=== PATIENT | male | born 1985 | race Caucasian/White ===

== ENCOUNTER 2020-05-11 15:05 | Outpatient (CLI) | payer OTHER, SELFPAY ==
--- NOTE | ~2020-05-11 | XR_ITS ---
EXAMINATION: XR chest 2V 05/11/2020 15:48 INDICATION: Chest pain PROCEDURE: 2 view chest COMPARISON: 03/05/2019 FINDINGS: The lungs are clear. The cardiomediastinal silhouette is within normal limits. There are no pleural effusions. There is no pneumothorax suspected. IMPRESSION: 1: NO ACUTE CARDIOPULMONARY DISEASE. Reviewed, dictated and finalized at location A.
[2020-05-11 15:37] LABS: Basophils Absolute Auto 0.1 K/mm3 (0.0-0.1); Basophils Percent Auto 0.5 % (0.2-1.2); Eosinophils Absolute Auto 0.2 K/mm3 (0-0.3); Eosinophils Percent Auto 1.1 % (0-4.4); Hematocrit 47.5 % (42.0-52.0); Immature Granulocyte Absolute 0.11 K/mm3 (0.00-0.031); Immature Granulocyte Percent A 0.7 % (0-0.5); Lymphocytes Absolute Auto 3.03 K/mm3 (0.9-3.2); Lymphocytes Percent Auto 18.3 % (18.3-44.2); Mean Corpuscular HGB Conc 33.7 g/dl (32-36); Mean Corpuscular Hemoglobin 30.6 pg (26-34); Mean Corpuscular Volume 90.8 fl (80-100); Mean Platelet Volume 10.1 fl (7.4-10.4); Monocytes Absolute Auto 0.9 K/mm3 (0.1-0.6); Monocytes Percent Auto 5.3 % (2.6-8.5); Neutrophils Absolute Auto 12.3 K/mm3 (1.3-6.7); Neutrophils Percent Auto 74.1 % (45.5-73.1); Platelet Count Result 199 k/mm3 (150-375); Red Blood Count 5.23 M/mm3 (4.6-6.20); Red Cell Distribution Width 12.9 % (11.5-14.5); White Blood Count 16.6 K/mm3 (4.5-10.0)
[2020-05-11 15:49] LABS: Alanine Aminotransferase 49 U/L (4-50); Albumin Level 4.2 g/dL (3.5-5.1); Alkaline Phosphatase 67 U/L (38-126); Aspartate Amino Transferase 38 U/L (17-59); Bilirubin,Total 0.5 mg/dL (0.2-1.3); Blood Urea Nitrogen 12 mg/dL (9-20); Calcium 8.5 mg/dL (8.4-10.2); Carbon Dioxide 28 mmol/L (22-30); Chloride 105 mmol/L (98-107); Estimated Glomerular Filt Rate > 60; Glucose 95 mg/dL (75-110); Potassium 4.2 mmol/L (3.4-5.0); Sodium 137 mmol/L (137-145)
== END 2020-05-11 15:06 | disposition home or self-care (01) ==
PROVIDERS: PCP Family Medicine; Visit Provider Family Medicine
DX: R07.9 Chest pain, unspecified (principal); I10 Essential (primary) hypertension
CPT/HCPCS: 36415; 71046; 80053; 85025

== ENCOUNTER 2020-06-08 14:58 | Outpatient (CLI) | payer OTHER, SELFPAY ==
[2020-06-08 15:13] LABS: Basophils Absolute Auto 0.07 K/mm3 (0.00-0.10); Basophils Percent Auto 0.7 % (0.0-1.0); Eosinophils Absolute Auto 0.18 K/mm3 (0.02-0.50); Eosinophils Percent Auto 1.7 % (1.0-6.0); Hematocrit 50.3 % (40.0-54.0); Hemoglobin 17.2 g/dL (14.0-18.0); Immature Granulocyte Absolute 0.07 K/mm3 (0.00-0.00); Immature Granulocyte Percent A 0.7 % (0.0-0.0); Lymphocytes Absolute Auto 2.86 K/mm3 (1.10-4.50); Lymphocytes Percent Auto 27.8 % (18.0-42.0); Mean Corpuscular HGB Conc 34.2 g/dL (32.0-36.0); Mean Corpuscular Hemoglobin 31.3 pg (27.0-31.0); Mean Corpuscular Volume 91.5 fL (78.0-102.0); Monocytes Percent Auto 6.8 % (2.0-11.0); Neutrophils Absolute Auto 6.4 K/mm3 (1.7-7.2); Neutrophils Percent Auto 62.3 % (50.0-70.0); Platelet Count Result 218 K/mm3 (150-420); Red Cell Distribution Width 13.3 % (11.6-14.4); White Blood Count 10.3 K/mm3 (4.8-10.8)
[2020-06-08 16:17] LABS: Erythrocyte Sedimentation Rate 2 mm/hr (0-15)
[2020-06-08 16:24] LABS: Alanine Aminotransferase 68 U/L (16-63); Albumin Level 3.9 g/dL (3.4-5.0); Alkaline Phosphatase 68 U/L (46-116); Anion Gap 14.2 mmol/L (7-16); Aspartate Amino Transferase 29 U/L (15-37); Bilirubin,Total 0.5 mg/dL (0.00-1.00); Blood Urea Nitrogen 14 mg/dL (7-18); Calcium 8.8 mg/dL (8.5-10.1); Carbon Dioxide 25 mmol/L (21-32); Chloride 104 mmol/L (98-108); Estimated Glomerular Filt Rate > 60; Glucose 88 mg/dL (70-99); Osmolality Calculated 287 mOsm/kg (285-295); Potassium 4.2 mmol/L (3.5-5.1); Sodium 139 mmol/L (136-145); Total Protein 7.1 g/dL (6.4-8.2)
[2020-06-12 22:28] LABS: CRP, High Sensitivity 3.8 mg/L (***)
== END 2020-06-08 14:59 | disposition home or self-care (01) ==
LOC: CHSLAB 15:01
PROVIDERS: PCP Family Medicine; Visit Provider Family Medicine
DX: D72.829 Elevated white blood cell count, unspecified (principal); L40.9 Psoriasis, unspecified
CPT/HCPCS: 36415; 80053; 85025; 85652; 86141

== ENCOUNTER 2021-02-03 11:37 | Outpatient (CLI) | payer OTHER, SELFPAY ==
[2021-02-03 12:06] LABS: Basophils Absolute Auto 0.1 K/mm3 (0.0-0.1); Basophils Percent Auto 0.5 % (0.2-1.2); Eosinophils Absolute Auto 0.2 K/mm3 (0-0.3); Eosinophils Percent Auto 1.5 % (0-4.4); Hematocrit 46.7 % (42.0-52.0); Immature Granulocyte Absolute 0.12 K/mm3 (0.00-0.031); Immature Granulocyte Percent A 0.8 % (0-0.5); Lymphocytes Absolute Auto 3.53 K/mm3 (0.9-3.2); Lymphocytes Percent Auto 24.6 % (18.3-44.2); Mean Corpuscular HGB Conc 34.3 g/dl (32-36); Mean Corpuscular Volume 90.5 fl (80-100); Mean Platelet Volume 9.9 fl (7.4-10.4); Monocytes Percent Auto 7.2 % (2.6-8.5); Neutrophils Absolute Auto 9.4 K/mm3 (1.3-6.7); Neutrophils Percent Auto 65.4 % (45.5-73.1); Platelet Count Result 250 k/mm3 (150-375); Red Blood Count 5.16 M/mm3 (4.6-6.20); Red Cell Distribution Width 12.9 % (11.5-14.5); White Blood Count 14.3 K/mm3 (4.5-10.0)
[2021-02-03 12:08] LABS: Add Urine Microscopic? YES; Appearance Urine Cloudy (Clear); Bilirubin Urine Negative (Negative); Blood Urine Negative (Negative); Color Urine Yellow (Yellow); Glucose Urine UA Negative (Negative); Ketones Urine Negative (Negative); Leukocyte Esterase Ur Negative LEU/UL (NEGATIVE); Nitrate Urine Negative (Negative); Protein Urine Negative (Negative); RBC Urine 0-2 /hpf (0-2); Specific Grav Ur 1.021 (1.001-1.035); Squamous Epithelial Cell Urine Rare /hpf (Few); Urobilinogen Urine Negative mg/dL (<2.0); WBC Urine 0-3 /hpf (0-3)
[2021-02-03 12:14] LABS: Hemoglobin A1C 5.2 % (<5.7)
[2021-02-03 12:27] LABS: Alanine Aminotransferase 30 U/L (4-50); Albumin Level 4.1 g/dL (3.5-5.1); Alkaline Phosphatase 87 U/L (38-126); Anion Gap 7 mmol/L (8-16); Aspartate Amino Transferase 26 U/L (17-59); Bilirubin,Total 0.3 mg/dL (0.2-1.3); Blood Urea Nitrogen 19 mg/dL (9-20); Carbon Dioxide 25 mmol/L (22-30); Chloride 107 mmol/L (98-107); Cholesterol 260 mg/dL (0-200); Estimated Glomerular Filt Rate > 60; Glucose 103 mg/dL (75-110); Potassium 4.4 mmol/L (3.4-5.0); Sodium 139 mmol/L (137-145)
[2021-02-03 12:46] LABS: Total Triiodothyronine (T3) 1.05 NG/ML (0.97-1.69)
[2021-02-03 13:03] LABS: Free T4 Free Thyroxine 0.86 ng/mL (0.78-2.19)
[2021-02-03 13:28] LABS: Triglycerides 771 mg/dL (<150)
[2021-02-03 13:55] LABS: LDL Cholesterol Direct 127 mg/dL
== END 2021-02-03 11:38 | disposition home or self-care (01) ==
LOC: ANHLAB 11:44
PROVIDERS: PCP Family Medicine; Visit Provider Family Medicine
DX: E03.9 Hypothyroidism, unspecified (principal); R73.9 Hyperglycemia, unspecified; E78.00 Pure hypercholesterolemia, unspecified; I10 Essential (primary) hypertension; Z00.00 Encounter for general adult medical examination without abnormal findings
CPT/HCPCS: 36415; 80053; 80061; 81001; 83036; 84439; 84443; 84480; 85025

== ENCOUNTER 2022-04-28 15:09 | Outpatient (CLI) | payer OTHER, SELFPAY ==
--- NOTE | ~2022-04-28 | MR_ITS ---
EXAMINATION: MR cervical spine wo con DATE: 04/28/2022 15:52 INDICATION: Neck injury. TECHNIQUE: Magnetic resonance imaging (MRI) of the cervical spine was performed without intravenous c ontrast. Sequences included sagittal T2-weighted FSE, sagittal T2-weighted FS FSE, sagittal T1-weight ed FSE, axial MERGE, and axial T2-weighted FSE. COMPARISON: CT cervical spine 03/05/2019 FINDINGS: Bone alignment is normal. Vertebral body heights and intervertebral disc heights are normal . The central spinal canal is developmentally small from C3 to C6. The spinal cord signal intensity i s normal. The following disc levels are specifically discussed: C2-C3: The disc does not extend beyond the endplate margin. There is no uncovertebral joint osteoarth ritis. There is mild right facet joint osteoarthritis. There is no neural foraminal stenosis. There i s mild central canal stenosis. C3-C4: There is a central extrusion. There is mild bilateral uncovertebral joint osteoarthritis. Ther e is mild bilateral facet joint osteoarthritis. There is moderate bilateral neural foraminal stenosis . There is moderate central canal stenosis with ventral and dorsal indentation of the spinal cord. C4-C5: There is a central protrusion. There is no uncovertebral joint osteoarthritis. There is mild l eft facet joint osteoarthritis. There is mild right and moderate left neural foraminal stenosis. Ther e is moderate central canal stenosis with ventral and dorsal indentation of the spinal cord. C5-C6: The disc is bulging. There is moderate left uncovertebral joint osteoarthritis. There is moder ate left facet joint osteoarthritis. There is moderate left neural foraminal stenosis. There is mild central canal stenosis. C6-C7: There is a central protrusion. There is mild bilateral uncovertebral joint osteoarthritis. The re is moderate left facet joint osteoarthritis. There is mild left neural foraminal stenosis. There i s mild central canal stenosis. C7-T1: The disc does not extend beyond the endplate margin. There is no uncovertebral joint osteoarth ritis. There is mild right and moderate left facet joint osteoarthritis. There is mild left neural fo raminal stenosis. There is no central canal stenosis. IMPRESSION: 1. Moderate cervical spondylosis. Reviewed, dictated and finalized at location B.
== END 2022-04-28 15:10 | disposition home or self-care (01) ==
LOC: ANHIMG 15:10
PROVIDERS: PCP Family Medicine; Visit Provider Family Medicine
DX: M25.512 Pain in left shoulder (principal); R22.1 Localized swelling, mass and lump, neck; M47.812 Spondylosis without myelopathy or radiculopathy, cervical region
CPT/HCPCS: 72141

== ENCOUNTER 2022-05-09 08:41 | Outpatient (CLI) | payer OTHER, SELFPAY ==
--- NOTE | ~2022-05-09 | US_ITS ---
EXAMINATION: US soft tissue upper back DATE: 05/09/2022 09:26 INDICATION: Palpable lump and pain at the left upper back TECHNIQUE: Multiple grayscale and Doppler ultrasound images of the region of concern at the posterior left upper back were obtained. COMPARISON: None FINDINGS: There is a lenticular mass at the region of concern measuring 3.1 x 4.2 x 1.5 cm which is without adán reciable internal vascular flow on color Doppler. The mass is isoechoic and with similar echogenic te xture and internal septated architecture as the surrounding subcutaneous fat. Appearance would be con sistent with lesional be statistically most likely to represent a lipoma. IMPRESSION: 1. Nonspecific 4.2 x 3.1 x 1.5 cm subcutaneous mass at the region of concern at the posterior left up per back with appearance consistent with and statistically most likely to represent a lipoma. Reviewed, dictated and finalized at location A. IMPRESSION: 1. Nonspecific 4.2 x 3.1 x 1.5 cm subcutaneous mass at the region of concern at the posterior left upper back with appearance consistent with and statisticall y most likely to represent a lipoma.
== END 2022-05-09 08:42 | disposition home or self-care (01) ==
PROVIDERS: PCP Family Medicine; Visit Provider Physician Assistant
DX: M25.512 Pain in left shoulder (principal); R22.1 Localized swelling, mass and lump, neck
CPT/HCPCS: 76604

== ENCOUNTER 2022-08-16 00:53 | Day surgery (SDC) | payer OTHER, SELFPAY ==
[2022-08-09 13:05] VITALS: BMI 37.5
--- NOTE | 2022-08-09 13:21 | PC.NURSE ---
Report to the Outpatient Waiting Room, entrance under the green pavilion located off [facility], at time _1000 on date _08/16/22 . OR Time: _1200 . Time changes happen often and if your time is changed the preop area will call you the afternoon before. - You and your visitor will be asked to self-screen and do not enter if you have any COVID symptoms. - Only one visitor and NO children visitors are allowed at this time. - The patient visitor is requested to leave or wait in car when not with patient due to restrictions. - A mask is required within the hospital. Patients may have clear liquids (water, carbonated beverages, clear teas, apple juice) until 3 hours prior to surgery with a maximum of 20 ounces. - No food from midnight until time of surgery - Take the following medications with a SIP of water the morning of surgery: __LEVOTHYROXINE Medications to discontinue per physician N/A Date to take last dose Please no make-up, nail indian, hairspray, perfume, deodorant, or body powder the day of surgery. No jewelry (including any body piercings) or valuables the day of surgery, leave them at home. Please take a shower or bath the night before, or the morning of, surgery with an antibacterial soap. Wear comfortable, loose fitting clothing. - Jewelry must be removed prior to entering the operating room. Rings and piercings that are not removed may be cut off. - The hospital will not accept responsibility for valuables. - Please leave all valuables, including medications, at home the day of surgery. If you are going home after surgery, a licensed medical delivery driver must drive you home. - NO public transportation without another adult. - We recommend that an adult stay with you for 24 hours following discharge. - We also recommend that you do not drive, make important decision, drink alcoholic beverages, or take any drugs that were not prescribed by your health care provider for at least 24 hours after your discharge time. Follow any additional instructions given to you from your surgeon. If you or anyone in your household have experienced Covid symptoms in the past week, please notify your surgeon or the nurse liaison at the phone number below for possible testing. Telephone instructions given to _MARCELO and asked if any additional questions and then verbalized understanding. Patient advised to call surgeon office or pre surgery nurse liaison [phone] if any additional questions.
--- NOTE | 2022-08-15 14:19 | WPDANESEPPF ---
Anes - Initial Pre Proc Eval Procedure: Operation Date: 08/16/22 09:00 Proposed Procedures p Excision Left Upper Back Mass - Franko Watson DO Date/Time: 08/15/22 14:19 Surgeon: Franko Watson DO Pre Op Diagnosis: 4cm back mass Patient Data Age: 37 Gender: M Height: 1.73 m Weight: 112 kg Allergies Allergy/AdvReac Type Severity Reaction Status Date / Time Penicillins Allergy Mild Rash Verified 08/16/22 08:10 Home Medications Medication Instructions Recorded Confirmed Type levothyroxine 75 mcg tablet 75 mcg PO DAILY #38 tabs 04/28/22 08/16/22 Rx Patient hx anesthesia problems: none Family hx anesthesia problems: none Results Review: All pre-operative results and documents have been reviewed as part of the pre-operative evaluation. [facility] Past Medical History Medical History (Updated 08/15/22 @ 14:21 by Fernando Hdz MD) BMI 35.0-35.9,adult Chest pain Compensated hypothyroidism Hyperlipidemia Obesity MO (obstructive sleep apnea) Stress at work Tobacco abuse Surgical History Surgical History (Updated 07/31/22 @ 14:33 by Kate Moore) S/P appendectomy Family History Family History Mother Asthma Patient's mother is in good health Father Patient's father is in good health Family history of arthritis Sibling Patient's brother is in good health Social History Social History Social History: Smoking packs per day: 1 Smoking cigarettes per day: 20.0 Years smoked: 20 Smoking pack-years: 20.00 Smoking status: Smoker, status unknown (Pt does vape. ) Tobacco type: cigarettes and e-cigarettes/vaping Second hand tobacco smoke exposure: Yes Smoking end date: 02/03/21 Additional smoking assessment comments: Pt is vaping now. Alcohol intake: current Alcohol use details: Occasionally Substance use: never Substance use type: does not use Living arrangements: with family Gender identity (if verbalized by the patient): Male Sexual Orientation (if Verbalized by the Patient): Straight or Heterosexual Spiritual care concerns: No Anes - Eval Final PreProcedure Day of Procedure 08/15/22 14:19 Patient weight: obese Heart: regular rate and rhythm Lungs: clear to auscultation and normal air movement Airway: Mallampati scale class II Neurological: alert and oriented Last oral intake: >/= 8 hours ASA classification: II Emergent: no Anesthetic plan: proceed Anesthesia type and monitoring: general GIVS Results Review: All pre-operative results and documents have been reviewed as part of the pre-operative evaluation. Informed Consent: The patient's anesthetic plan and its attendant risks and benefits were discussed with the patient/family/POA. Questions were solicited and answers provided to the satisfaction of the patient/family/POA.
[2022-08-16] VITALS (7 sets, daily range): BP systolic 99–117; BP diastolic 51–73; PULSE 52–71; RESP 14–16; TEMP 36.4; O2SAT 93–99
[2022-08-16] MEDS: LACTATED RINGERS 1,000 ML 30 ML IV CONT ×2 (07:30→10:41)
--- NOTE | 2022-08-16 07:33 | WPDHPUPDATE1 ---
History and Physical Update Update Date/Time: 08/16/22 07:33 History and Physical has been reviewed, including an updated exam of the patient. There are NO changes in the patient's condition. Risks, benefits, and alternatives have been discussed and questions answered. Patient agrees to proceed with procedure.
[2022-08-16] MEDS: ceFAZolin 2 GM/D5W 50 ML 2 GM/50 ML BAG IVPB (08:58)
[2022-08-16] MEDS: LIDO 1%/EPINEPHRINE 1:100,000 10 ML VIAL 30 ML INFILTRATE (09:26)
[2022-08-16] MEDS: BACITRACIN ZINC OINTMENT 0.9 GRAM PACKET 1 PACKET TOPICAL (09:38)
--- NOTE | 2022-08-16 09:54 | W.PM.PROC2 ---
Procedure Note - Detailed Date of Procedure 08/16/22 Pre-op Diagnosis 4cm back mass Post-op Diagnosis Same Procedure Performed Excision of 4 cm left upper back mass Surgeon Franko Watson, DO Anesthesia MAC and Local (1% lidocaine with epinephrine) Indications This is a 37-year-old man who presented with a painful back mass on his left upper back. This had grown slightly over time and was causing discomfort when it was pressed on. He had an ultrasound which showed evidence of a subcutaneous mass consistent with a lipoma. Discussions were made with the patient about treatment options and decision was made to proceed with excision of 4 cm back mass. Findings The 4 cm back mass was excised. This appeared to be a subcutaneous lipoma. The mass was completely excised and sent to the lab for pathology. No other abnormalities were noted. Description of Procedure Procedure as well as risks, benefits, and alternatives were discussed with the patient. Written consent was obtained and placed in chart prior to procedure. Patient was brought back to surgical suite. He was placed in right lateral decubitus position on the operating table. Time-out was done to confirm patient and procedure. IV sedation was administered by the anesthesia department. His left upper back area was prepped and draped in sterile fashion using chlorhexidine prep. 1% lidocaine with epinephrine was infiltrated locally around the mass. A 4 cm transverse incision was then made using a 15 blade scalpel. Electrocautery was then used for hemostasis and for dissection through the subcutaneous tissue. The mass was identified and carefully dissected free using electrocautery. The mass was completely excised and sent to the lab for pathology. The wound bed was then inspected. Hemostasis appeared adequate and no other masses were identified. The skin edges were then reapproximated using 3-0 nylon simple interrupted sutures. Bacitracin ointment was then applied followed by 4 x 4 gauze and Medipore tape. The patient was then awakened from anesthesia and transferred to recovery. Estimated Blood Loss 5 Pathology Yes (4 cm left upper back mass) Complications No immediate complications Condition Stable Disposition Same day [facility] Billing Surgery - Charge Forward: Surgery Billing
[2022-08-16] MEDS: oxyCODONE HCL (*CRX) 5 MG TAB IR PO (12:02)
== END 2022-08-16 12:15 | disposition home or self-care (01) ==
PROVIDERS: PCP Family Medicine; Visit Provider Surgery
PROC: (CPT 21931; principal; 2022-08-16 09:00)
DX: D17.1 Benign lipomatous neoplasm of skin and subcutaneous tissue of trunk (principal); E03.8 Other specified hypothyroidism; Z87.891 Personal history of nicotine dependence; G47.33 Obstructive sleep apnea (adult) (pediatric); E66.9 Obesity, unspecified; Z68.36 Body mass index [BMI] 36.0-36.9, adult; E78.5 Hyperlipidemia, unspecified
CPT/HCPCS: 21931; 88304; A9270; J0690; J1100; J1170; J2250; J2370; J2405; J2704; J7120

== ENCOUNTER 2023-09-30 19:46 | Emergency (ER) | payer SELFPAY ==
--- NOTE | ~2023-09-30 | XR_ITS ---
EXAMINATION: XR chest 2V Exam Date/Time: 09/30/2023 20:10 MAGISTRATE HISTORY: rib pain X 7 YEARS Comparison: 05/11/2020. RESULT: Lines, tubes, and devices: None. Lungs and pleura: Clear. Cardiomediastinal silhouette: Stable. Other: No acute osseous or upper abdominal finding. IMPRESSION: No acute cardiopulmonary process. Reviewed, dictated and finalized at location K. STRATE
[2023-09-30 19:59] VITALS: BP 131/86; PULSE 95; RESP 17; TEMP 36.7; O2SAT 97
--- NOTE | 2023-09-30 21:22 | ED.GENADULT ---
[facility] - General Adult General Chief complaint: Unspecified Stated complaint: B ribcage pain Time Seen by Provider: 09/30/23 20:37 History of Present Illness [facility] narrative: patient presents the emergency department with left-sided chest wall pain that has been ongoing for the past 7 years. He reports it has been worse the past couple days. He also has a chronic cough. His friend notes the patient has continued to smoke and the for years. Pain much worse with deep breath and movement. patient is sleeping upon my initial exam and difficult to arouse. Appears very uncomfortable with any movement. Describes discomfort as sharp but also something is deflating Related Data Allergies Allergy/AdvReac Type Severity Reaction Status Date / Time Penicillins Allergy Mild Rash Verified 06/22/23 13:13 Review of Systems Review of Systems: negative except what is documented in the [facility] Past Medical History Medical History BMI 35.0-35.9,adult Chest pain Compensated hypothyroidism Hyperlipidemia Obesity MO (obstructive sleep apnea) Stress at work Tobacco abuse Surgical History Surgical History H/O excision of mass Excision of 4cm back mass on 08/16/22 S/P appendectomy Family History Family History Mother Asthma Patient's mother is in good health Father Patient's father is in good health Family history of arthritis Sibling Patient's brother is in good health Social History Social History (Updated 06/22/23 @ 13:15 by Patricia Xiong) Social History: Smoking packs per day: 1 Smoking cigarettes per day: 20.0 Years smoked: 20 Smoking pack-years: 20.00 Smoking status: Current some day smoker (Pt does vape. ) Tobacco type: cigarettes and e-cigarettes/vaping Second hand tobacco smoke exposure: Yes Smoking end date: 02/03/21 Additional smoking assessment comments: Pt is vaping now. Alcohol intake: current Alcohol use details: Occasionally Substance use: never Substance use type: does not use Lack of Transportation: No Lack of Food: Never True Current Housing: I Have Housing Concerned About Future Housing: No Difficulty Paying Gas/Electric Bills: No Difficulty Paying for Meds: No Currently Unemployed: No Education: Decline to Answer Difficulty w/ Childcare or Family Care: No Living arrangements: with family Occupation/Education: occupation Gender identity (if verbalized by the patient): Male Sexual Orientation (if Verbalized by the Patient): Straight or Heterosexual Spiritual care concerns: No Exam Narrative: GENERAL: Well-appearing, well-nourished, and in no acute distress after waking up HEAD: Normocephalic, atraumatic. EYES: PERRLA and EOMI. ENT: Nares clear, no rhinorrhea or epistaxis. Mucous membranes moist. NECK: Supple. CHEST: Clear to auscultation. No respiratory distress. left lateral chest wall tenderness HEART: Regular rate and rhythm. ABDOMEN: Soft, nontender, nondistended. EXTREMITIES: Normal range of motion. No edema. SKIN: Warm, dry, no rash. NEURO: No focal deficits. Alert and oriented x3. PSYCH: Normal mood and affect. Course Course Emergency Course: differential diagnosis includes but not limited to chest wall pain, costochondritis, pleurisy, pneumonia, bronchitis, lung mass CT labs ordered Telemetry ordered due to chest pain to evaluate for dysrhythmias. Evaluated by myself. Rhythm NS Rate 95 Vital Signs Vital signs: Vital Signs Temperature 36.7 C 09/30/23 19:59 Pulse Rate 95 09/30/23 19:59 Respiratory Rate 17 09/30/23 19:59 Blood Pressure 131/86 09/30/23 19:59 Pulse Oximetry 97 09/30/23 19:59 Temperature 36.7 C 09/30/23 19:59 Pulse Rate 77 09/30/23 22:21 Respiratory Rate 14 09/30/23 22:21 Blood Pressure
[2023-09-30 21:37] LABS: Basophils Percent Auto 0.3 % (0.2-1.2); Eosinophils Absolute Auto 0.2 K/mm3 (0-0.3); Eosinophils Percent Auto 2.4 % (0-4.4); Hematocrit 47.2 % (42.0-52.0); Hemoglobin 15.6 g/dL (14.0-18.0); Lymphocytes Absolute Auto 3.42 K/mm3 (0.9-3.2); Lymphocytes Percent Auto 35.4 % (18.3-44.2); Mean Corpuscular HGB Conc 33.1 g/dl (32-36); Mean Corpuscular Hemoglobin 29.9 pg (26-34); Mean Corpuscular Volume 90.4 fl (80-100); Mean Platelet Volume 9.8 fl (7.4-10.4); Monocytes Absolute Auto 0.7 K/mm3 (0.1-0.6); Monocytes Percent Auto 7.4 % (2.6-8.5); Neutrophils Absolute Auto 5.2 K/mm3 (1.3-6.7); Neutrophils Percent Auto 53.5 % (45.5-73.1); Platelet Count Result 238 k/mm3 (150-375); Red Blood Count 5.22 M/mm3 (4.6-6.20); Red Cell Distribution Width 13.1 % (11.5-14.5); White Blood Count 9.7 K/mm3 (4.5-10.0)
[2023-09-30 21:46] LABS: Ethanol < 10 mg/dL (<10)
[2023-09-30 21:47] LABS: Alanine Aminotransferase 50 U/L (6-50); Albumin Level 4.2 g/dL (3.5-5.1); Alkaline Phosphatase 85 U/L (38-126); Anion Gap 9 mmol/L (8-16); Aspartate Amino Transferase 35 U/L (17-59); Bilirubin,Total 0.7 mg/dL (0.2-1.3); Blood Urea Nitrogen 19 mg/dL (9-20); Carbon Dioxide 25 mmol/L (22-30); Chloride 103 mmol/L (98-107); Estimated CRCL calculation 173 ml/min; Estimated Glomerular Filt Rate > 60; Glucose 146 mg/dL (65-110); Potassium 4.1 mmol/L (3.4-5.0); Sodium 137 mmol/L (137-145)
[2023-09-30 21:50] LABS: D Dimer 0.35 ug/mL (<0.48)
[2023-09-30 22:00] LABS: Troponin I < 0.012 ng/mL (0.000-0.034)
[2023-09-30 22:21] VITALS: BP 144/91; PULSE 77; RESP 14; O2SAT 95
--- NOTE | 2023-09-30 22:24 | ECG_ITS ---
Measurements Intervals [place] Rate: 95 P: 33 WA: 131 QRS: -48 QRSD: 106 T: 38 QT: 367 QTc: 462 Interpretive Statements SINUS RHYTHM INCOMPLETE RIGHT BUNDLE BRANCH BLOCK LEFT ANTERIOR FASCICULAR BLOCK ABNORMAL ECG COMPARED TO ECG 03/05/2019 08:12:38 LEFT ANTERIOR FASCICULAR BLOCK NOW PRESENT Electronically Signed On 10-01-2023 6:20:34 PILL MACHINE OPERATOR by Bonifacio Stroud D.O.
[2023-09-30 22:38] LABS: Amphetamine Screen Urine Negative (Negative); Barbiturate Screen Urine Negative (Negative); Benzodiazepines Screen Urine Negative (Negative); Cannabinoid Screen Urine Negative (Negative); Cocaine Screen Urine Negative (Negative); Methadone Screen Urine Negative (Negative); Opiate Screen Urine Negative (Negative); Phencyclidine Screen Urine Negative (Negative)
[2023-09-30] MEDS: LIDOCAINE 5% PATCH 1 PATCH TRANSDERM (22:50)
[2023-09-30] MEDS: IBUPROFEN 600 MG TABLET PO (22:50)
== END 2023-09-30 23:00 | disposition home or self-care (01) ==
PROVIDERS: Emergency Provider Emergency Medicine; PCP Family Medicine
DX: R07.89 Other chest pain (principal); E03.9 Hypothyroidism, unspecified; E78.5 Hyperlipidemia, unspecified; G47.33 Obstructive sleep apnea (adult) (pediatric); E66.9 Obesity, unspecified; Z68.37 Body mass index [BMI] 37.0-37.9, adult; F17.290 Nicotine dependence, other tobacco product, uncomplicated; I45.2 Bifascicular block
CPT/HCPCS: 36415; 71046; 80053; 80307; 84484; 85025; 85380; 93005; 99284; A9270

== ENCOUNTER 2024-03-25 19:28 | Inpatient (IN) | payer SELFPAY ==
[2024-03-25] VITALS (10 sets, daily range): BP systolic 106–138; BP diastolic 73–88; PULSE 85–96; RESP 14–20; TEMP 37.2–37.4; O2SAT 93–100
--- NOTE | ~2024-03-25 | CT_ITS ---
EXAMINATION: CT abdomen pelvis w con DATE: 03/25/2024 20:58 INDICATION: Epigastric and ruq pain. TECHNIQUE: Computed tomography (CT) of the abdomen and pelvis was performed with 100 mL Omnipaque-350 intravenous contrast. Automated exposure control and iterative reconstruction technique were employe d. The dose-length product was 1292.65 mGy-cm. COMPARISON: 03/06/2019 and 12/31/2015. FINDINGS: Lower thorax: Bilateral dependent patchy groundglass opacities and septal thickening Liver: Enlarged. Diffuse fatty infiltration. Biliary/Gallbladder: Gallbladder is normal. No bile duct dilation. Pancreas: No mass or duct dilation. Stable peripancreatic lymph node. Spleen: Enlarged Adrenals:Subcentimeter right adrenal myelolipoma. Kidneys: No suspicious mass, obstructing stone, or hydronephrosis. GI tract: No small or large bowel dilation. Appendix not visualized, likely surgically absent Mesentery/Peritoneum: No ascites, mass, or free air. Retroperitoneum: No mass. Pelvis: Pelvic organs are within normal limits. Soft Tissues: Small fat-containing left inguinal and umbilical hernias. Bones: No acute osseous finding. IMPRESSION: Moderate pulmonary edema. Hepatosplenomegaly. Hepatic steatosis. Otherwise, no acute abdominopelvic process detected. Reviewed, dictated and finalized at location K.
--- NOTE | ~2024-03-25 | XR_ITS ---
Portable chest x-ray Comparison: 03/26/2024 Clinical History: Bilateral infiltrates Findings: Right-sided PICC line is in satisfactory position. There is probable minimal patchy hazine ss in the left midlung. Right lung clear. Cardiomediastinal silhouette is stable. Bones and soft tis sues are unremarkable. Impression: Minimal patchy haziness left midlung. Correlate for pneumonia. Right-sided PICC line in place. Reviewed, dictated and finalized at location M. Impression: Minimal patchy haziness left midlung. Correlate for pneumonia. Right-sided PICC line in place.
--- NOTE | ~2024-03-25 | XR_ITS ---
Portable chest x-ray Comparison: 03/25/2024 Clinical History: PICC line placement Findings: Right-sided PICC line is present, tip overlying the SVC. Lungs are clear, without focal co nsolidation or pleural effusion. No pneumothorax. Cardiomediastinal silhouette is stable. Bones and soft tissues are unremarkable. Impression: Right-sided PICC line in place. Clear lungs. Reviewed, dictated and finalized at location M. Impression: Right-sided PICC line in place. Clear lungs.
--- NOTE | ~2024-03-25 | CT_ITS ---
EXAMINATION: CT pelvis wo con DATE: 03/31/2024 10:04 INDICATION: Lump in right buttock. TECHNIQUE: Computed tomography (CT) of the pelvis was performed without intravenous contrast. Automat ed exposure control and iterative reconstruction technique were employed. The dose-length product was 1018.24 mGy-cm. COMPARISON: CT abdomen pelvis 03/25/2024 FINDINGS: There are no dilated loops of bowel. There is a left inguinal hernia containing fat. There is mild right external iliac and right common iliac lymphadenopathy, likely reactive. There is no sunitha e intraperitoneal fluid. There is fat stranding and gas in the subcutaneous fat in the medial right b uttock. There is mild osteoarthritis of the hips. IMPRESSION: 1. Fat stranding and gas in the subcutaneous fat in medial right buttock, consistent with cellulitis. Correlate clinically for necrotizing fasciitis. No significant drainable fluid. Reviewed, dictated and finalized at location A. IMPRESSION: 1. Fat stranding and gas in the subcutaneous fat in medial right buttock, consi stent with cellulitis. Correlate clinically for necrotizing fasciitis. No signi ficant drainable fluid.
--- NOTE | ~2024-03-25 | XR_ITS ---
EXAMINATION: XR chest 1V portable DATE: 03/30/2024 05:54 INDICATION: Pneumonia. Pulmonary edema. TECHNIQUE: A single frontal view of the chest was obtained. COMPARISON: Chest single view 03/27/24, CT abdomen and pelvis 03/25/2024 FINDINGS: There are mild airspace opacities in left mid and lower lung zones. No pleural effusion or pneumothorax. The heart size is normal. A right upper extremity peripherally inserted central venous catheter (PICC) is seen with tip in the superior vena cava. IMPRESSION: 1. Stable mild airspace opacities in left mid and lower lung zones, consistent with atelectasis versu s pneumonia. Reviewed, dictated and finalized at location A. IMPRESSION: 1. Stable mild airspace opacities in left mid and lower lung zones, consistent with atelectasis versus pneumonia.
--- NOTE | ~2024-03-25 | XR_ITS ---
EXAMINATION: XR chest 1V portable Exam Date/Time: 03/25/2024 19:45 CDT HISTORY: chest pain Comparison: 09/30/2023. RESULT: Lines, tubes, and devices: None. Lungs and pleura: Moderate diffuse reticular and patchy groundglass opacities with indistinct vessel s and cuffing. Cardiomediastinal silhouette: Stable. Other: No acute osseous or upper abdominal finding. IMPRESSION: Moderate pulmonary edema. Reviewed, dictated and finalized at location K. IMPRESSION: Moderate pulmonary edema.
--- NOTE | 2024-03-25 19:31 | ECG_ITS ---
SEE SCANNED COPY FOR CONFIRMED REPORT MTDD
--- NOTE | 2024-03-25 19:49 | PC.NURSE ---
ok to not give aspirin 324mg per edp zych.
[2024-03-25] MEDS: FAMOTIDINE 20 MG/2 ML VIAL IV PUSH (20:20)
[2024-03-25] MEDS: ONDANSETRON INJ 4 MG/2 ML VIAL IV PUSH (20:20)
[2024-03-25] MEDS: SODIUM CHLORIDE 0.9% IV 2,000 ML 999 ML IV CONT (20:21)
[2024-03-25] MEDS: HYDROmorphone HCL INJ (*CRX) 1 MG/ML SYR 0.5 MG IV PUSH (20:21)
[2024-03-25 20:26] LABS: Partial Thromboplastin Time 29.7 Seconds (22.3-36.8); Prothrombin Time 13.3 Seconds (11.1-14.7)
[2024-03-25 20:36] LABS: Alanine Aminotransferase 51 U/L (6-50); Albumin Level 3.8 g/dL (3.5-5.1); Alkaline Phosphatase 105 U/L (38-126); Anion Gap 15 mmol/L (4-12); Aspartate Amino Transferase 30 U/L (17-59); Blood Urea Nitrogen 13 mg/dL (9-20); Calcium 8.4 mg/dL (8.4-10.2); Carbon Dioxide 12 mmol/L (22-30); Chloride 104 mmol/L (98-107); Estimated CRCL calculation 177 ml/min; Estimated Glomerular Filt Rate > 60; Glucose 224 mg/dL (65-110); Lipase 68 U/L (23-300); Potassium 3.9 mmol/L (3.4-5.0); Sodium 131 mmol/L (137-145)
[2024-03-25 20:50] LABS: Troponin I < 0.012 ng/mL (0.000-0.034)
[2024-03-25 20:57] LABS: Mean Platelet Volume 11.6 fl (7.4-10.4); Platelet Count Result 262 k/mm3 (150-375)
[2024-03-25 21:42] LABS: Hematocrit 36.5 % (42.0-52.0); Hemoglobin 13.3 g/dL (14.0-18.0); Mean Corpuscular HGB Conc 36.4 g/dl (32-36); Mean Corpuscular Hemoglobin 32.4 pg (26-34); White Blood Count 14.7 K/mm3 (4.5-10.0)
[2024-03-25 21:43] LABS: Red Cell Distribution Width 14.1 % (11.5-14.5)
[2024-03-25 21:47] LABS: Band Neutrophils Percent 2 % (0-6); Eosinophils Absolute Manual 0.14 K/mm3 (0.02-0.50); Eosinophils Percent Manual 1 % (0-4); Lymphocytes Absolute Manual 2.35 K/mm3 (1.1-4.5); Lymphocytes Percent Manual 16 % (18-44); Monocytes Absolute Manual 0.73 K/mm3 (0.1-0.90); Monocytes Percent Manual 5 % (3-9); Neutrophils Absolute Manual 11.46 K/mm3 (1.3-6.7); Neutrophils Percent Manual 76 % (46-73); Platelet Estimate Adequate (Adequate); Schistocytes None Seen; Total Cells Counted 100
--- NOTE | 2024-03-25 22:45 | ECG_ITS ---
SEE SCANNED COPY FOR CONFIRMED REPORT MTDD
[2024-03-25 23:26] LABS: Troponin I < 0.012 ng/mL (0.000-0.034)
[2024-03-26] VITALS (22 sets, daily range): BP systolic 107–136; BP diastolic 60–81; PULSE 85–105; RESP 12–23; TEMP 37.1–37.9; O2SAT 90–100; BMI 40.4
--- NOTE | 2024-03-26 | ECHO_ITS ---
Patient Info Name: Nam Mckoy Age: 39 years : 1985 Gender: Male Ht: 68 in Wt: 265 lbs BSA: 2.46 m2 HR: 102 bpm BP: 107 / 60 mmHg Heart Rhythm: Sinus Rhythm Technical Quality: Fair Exam Date: 03/26/2024 1:46 PM Exam Location: Echo Lab Patient Status: Inpatient Admit Date: 03/26/2024 Staff Ordering Physician: Ruben Alatorre MD Tank Furnace Operator: Lindsey De La Cruz RDCS Attending Provider: Sancho Roberts MD Referring Physician: Celi MCLEAN; Exam Type: CA echo doppler color flow Study Info Indications - hypertrigycerides, hypercholestrolemia R07.9 - Chest pain, unspecified Complete two-dimensional, color flow and Doppler transthoracic echocardiogram is performed with contrast to opacify the left ventricle and to improve the deliniation of the left ventricle endocardial borders. Contrast/Agitated Saline Contrast/Ag. Saline: Definity Amount: 3.00 ml Administered By: Lindsey De La Cruz RDCS Existing IV Access: Yes IV Access Condition: patent with no signs of infiltration Summary 1. Left ventricular chamber dimension is normal. 2. Left ventricular systolic function is normal, estimated at 65-70%. 3. The left ventricular diastolic function is grade III diastolic dysfunction. 4. Right ventricular chamber dimension is mildly enlarged. 5. Right ventricular systolic function is normal. 6. No significant valvular disease. Left Ventricle Left ventricular chamber dimension is normal. Left ventricular systolic function is normal, estimated at 65-70%. There is no increased left ventricular wall thickness. The left ventricular diastolic function is grade III diastolic dysfunction. Right Ventricle Linear artifact in right ventricle suggestive of catheter(s), pacemaker lead(s), or ICD lead(s). Right ventricular chamber dimension is mildly enlarged. Right ventricular systolic function is normal. Left Atria Left atrial chamber dimension is normal. Right Atria Linear artifact in the right atrium suggestive of catheter(s), pacemaker lead(s), or ICD lead(s). Right atrial chamber dimension is normal. Atrial Septum Intact interatrial septum visualized by color flow imaging. Aortic Valve The aortic valve is not well visualized. There is no aortic valve stenosis. There is no aortic valve regurgitation. Pulmonic Valve The pulmonic valve is not well visualized. There is trace pulmonic regurgitation. Mitral Valve There is trace mitral valve regurgitation. Tricuspid Valve There is trace tricuspid valve regurgitation. Pericardium/Pleural The pericardium appears epicardial fat pad. There is no pericardial effusion. Inferior Vena Cava Inferior vena cava is not well visualized. Aorta The aortic root size at the sinus of Valsalva is normal. Report Signatures
[2024-03-26 00:13] LABS: Influenza A QL RT-PCR Negative (Negative); Influenza B QL RT-PCR Negative (Negative); RSV RNA, RT-PCR Negative (Negative); SARS-CoV-2 RNA PCR Negative (Negative)
[2024-03-26 00:15] LABS: Hemoglobin A1C 8.4 % (<5.7)
[2024-03-26 00:30] LABS: Cholesterol > 650 mg/dL (0-200); Triglycerides > 2625 mg/dL (<150)
[2024-03-26 00:32] LABS: LDL Cholesterol Direct 88 mg/dL
--- NOTE | 2024-03-26 00:52 | ED.GENADULT ---
HPI - General Adult General Chief complaint: Chest Pain Stated complaint: chest pain Time Seen by Provider: 03/25/24 19:44 History of Present Illness HPI narrative: This is a 31-year-old male presenting for multiple complaints. Patient has been feeling unwell throughout the day. Symptoms have included right-sided chest pain, epigastric pain, nausea vomiting, weakness. 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 Patient says he has been coughing for quite some time. He denies fever chills sore throat or urinary symptoms. His mother has been checking his glucose at home he has been elevated glucose in the 240s. Is now being treated for diabetes at this time. Related Data Allergies Allergy/AdvReac Type Severity Reaction Status Date / Time Penicillins Allergy Mild Rash Verified 06/22/23 13:13 [facility] Past Medical History Medical History BMI 35.0-35.9,adult Chest pain Compensated hypothyroidism Hyperlipidemia Obesity MO (obstructive sleep apnea) Stress at work Tobacco abuse Surgical History Surgical History H/O excision of mass Excision of 4cm back mass on 08/16/22 S/P appendectomy Family History Family History Mother Asthma Patient's mother is in good health Father Patient's father is in good health Family history of arthritis Sibling Patient's brother is in good health Social History Social History Social History: Smoking packs per day: 1 Smoking cigarettes per day: 20.0 Years smoked: 20 Smoking pack-years: 20.00 Smoking status: Current some day smoker (Pt does vape. ) Tobacco type: cigarettes and e-cigarettes/vaping Second hand tobacco smoke exposure: Yes Smoking end date: 02/03/21 Additional smoking assessment comments: Pt is vaping now. Alcohol intake: current Alcohol use details: Occasionally Substance use: never Substance use type: does not use Lack of Transportation: No Lack of Food: Never True Current Housing: I Have Housing Concerned About Future Housing: No Difficulty Paying Gas/Electric Bills: No Difficulty Paying for Meds: No Currently Unemployed: No Education: Decline to Answer Difficulty w/ Childcare or Family Care: No Living arrangements: with family Occupation/Education: occupation Gender identity (if verbalized by the patient): Male Sexual Orientation (if Verbalized by the Patient): Straight or Heterosexual Spiritual care concerns: No Exam Narrative: APPEARANCE: Patient appears uncomfortable Head: atraumatic. EYES: EOMI, NOSE: Atraumatic NECK: Trachea midline RESPIRATORY: bibasilar crackles, slightly tachypneic CARDIOVASCULAR: RRR, no peripheral edema ABDOMINAL: tenderness in the epigastric area, , no guarding or rebound MUSCULOSKELETAl: No obvious deformities NEURO: Alert. Moving 4/4 extremities SKIN:: Warm, dry. Normal color PSYCHIATRIC: Normal affect Course Vital Signs Vital signs: Vital Signs Temperature 98.9 F 03/25/24 20:11 Pulse Rate 94 03/25/24 20:11 Respiratory Rate 15 03/25/24 20:11 Blood Pressure 106/75 03/25/24 20:11 Pulse Oximetry 96 03/25/24 20:11 Oxygen Delivery Room Air 03/25/24 20:11 Temperature 99.3 F 03/25/24 23:26 Pulse Rate 96 03/25/24 23:14 Respiratory Rate 14 03/25/24 23:14 Blood Pressure 123/88 03/25/24 23:14 Pulse Oximetry 95 03/25/24 23:14 Oxygen Delivery Room Air 03/25/24 22:39 Medical Decision Making MDM Narrative Medical decision making narrative: -Course: 39-year-old male presenting with multiple complaints including chest pain, dario, abdominal pain, n/v. Workup significant for bilateral pulmonary edema/ infiltrates. White
[2024-03-26 01:29] LABS: Appearance Urine Clear (Clear); Bacteria Urine None Seen /hpf; Bilirubin Urine Negative (Negative); Blood Urine Negative (Negative); Color Urine Yellow (Yellow); Glucose Urine UA 2+ mg/dL (Negative); Ketones Urine Negative (Negative); Leukocyte Esterase Ur Negative LEU/UL (Negative); Nitrate Urine Negative (Negative); Non Pathogenic Casts 0-2; Protein Urine 1+ mg/dL (Negative); RBC Urine 0-2 /hpf (0-2); Squamous Epithelial Cell Urine None Seen /hpf (Few); Urobilinogen Urine 0.2 mg/dL (<2.0); WBC Urine 0-5 /hpf (0-3)
[2024-03-26 01:36] LABS: Specific Grav Ur 1.067 (1.001-1.035)
[2024-03-26 01:37] LABS: Add Urine Microscopic? YES
[2024-03-26 01:54] LABS: Troponin I < 0.012 ng/mL (0.000-0.034)
[2024-03-26] MEDS: INSULIN HUMAN REGULAR (*BKC) 100 UNITS in SODIUM CHLORIDE 0.9% IV 99 ML 11.5 UNITS IV CONT ×2 (02:08→10:17)
[2024-03-26 02:13] LABS: Glucose Point of Care 235 mg/dl (65-105)
[2024-03-26] MEDS: AZITHROMYCIN 500 MG/NS 250 ML 500 MG/250 ML BAG 250 MG IVPB (02:13)
[2024-03-26 03:11] LABS: Glucose Point of Care 205 mg/dl (65-105)
[2024-03-26] MEDS: DEXTROSE 5%/0.9% SOD CHL 1,000 ML 100 ML IV CONT ×2 (03:15→13:19)
--- NOTE | 2024-03-26 04:13 | ADMGEN ---
This patient, Nam Mckoy, was admitted to Intensive Care Unit-10. Patient/family oriented to hospital policies and general routines including ID bracelet, bed and alarms, visiting hours, pain management, procedures, bathroom and other care routines, personal items, smoking policy, room service/diet, and visiting hours. Information on how to activate the Rapid Response Team has been discussed. Patient/Family are encouraged to report perceived risks to care and to ask questions if they do not understand what they are told or what they should do.
[2024-03-26 05:18] LABS: Glucose Point of Care 149 mg/dl (65-105)
[2024-03-26 05:18] LABS: Glucose Point of Care 165 mg/dl (65-105)
[2024-03-26 05:32] LABS: Glucose Point of Care 123 mg/dl (65-105)
[2024-03-26 06:01] LABS: MRSA (PCR) NOT DETECTED (NOT DETECTE)
--- NOTE | 2024-03-26 06:12 | PC.NURSE ---
ACC site down. ASCVD risk senior estimator unable to be complete at this time
[2024-03-26 06:35] LABS: Glucose Point of Care 87 mg/dl (65-105)
[2024-03-26 08:03] LABS: Glucose Point of Care 77 mg/dl (65-105)
[2024-03-26 08:03] LABS: Glucose Point of Care 70 mg/dl (65-105)
[2024-03-26 08:41] LABS: Glucose Point of Care 77 mg/dl (65-105)
[2024-03-26 09:31] LABS: Glucose Point of Care 79 mg/dl (65-105)
[2024-03-26] MEDS: SODIUM CHLORIDE 0.9% IV 1,000 ML 999 ML IV CONT ×2 (10:16→11:02)
[2024-03-26 10:19] LABS: Basophils Absolute Auto 0.1 K/mm3 (0.0-0.1); Basophils Percent Auto 0.3 % (0.2-1.2); Eosinophils Percent Auto 0.2 % (0-4.4); Hemoglobin 14.2 g/dL (14.0-18.0); Immature Granulocyte Absolute 0.11 K/mm3 (0.00-0.031); Immature Granulocyte Percent A 0.7 % (0-0.5); Lymphocytes Absolute Auto 1.61 K/mm3 (0.9-3.2); Lymphocytes Percent Auto 9.9 % (18.3-44.2); Mean Corpuscular HGB Conc 36.4 g/dl (32-36); Mean Corpuscular Hemoglobin 33.1 pg (26-34); Mean Corpuscular Volume 90.9 fl (80-100); Mean Platelet Volume 10.6 fl (7.4-10.4); Monocytes Absolute Auto 1.2 K/mm3 (0.1-0.6); Monocytes Percent Auto 7.5 % (2.6-8.5); Neutrophils Absolute Auto 13.3 K/mm3 (1.3-6.7); Neutrophils Percent Auto 81.4 % (45.5-73.1); Platelet Count Result 191 k/mm3 (150-375); Red Blood Count 4.29 M/mm3 (4.6-6.20); Red Cell Distribution Width 13.6 % (11.5-14.5); White Blood Count 16.3 K/mm3 (4.5-10.0)
[2024-03-26 10:35] LABS: Lactic Acid Reflex 0.8 mmol/L (0.7-2.0)
[2024-03-26 10:47] LABS: Alanine Aminotransferase 40 U/L (6-50); Albumin Level 3.5 g/dL (3.5-5.1); Alkaline Phosphatase 78 U/L (38-126); Anion Gap 10 mmol/L (4-12); Aspartate Amino Transferase 33 U/L (17-59); Bilirubin,Total 0.8 mg/dL (0.2-1.3); Blood Urea Nitrogen 8 mg/dL (9-20); Calcium 7.3 mg/dL (8.4-10.2); Carbon Dioxide 16 mmol/L (22-30); Chloride 109 mmol/L (98-107); Estimated CRCL calculation 179 ml/min; Estimated Glomerular Filt Rate > 60; Glucose 64 mg/dL (65-110); Lipase 61 U/L (23-300); Magnesium 1.8 mg/dL (1.6-2.3); Potassium 3.8 mmol/L (3.4-5.0); Sodium 135 mmol/L (137-145)
[2024-03-26 11:05] LABS: Glucose Point of Care 75 mg/dl (65-105)
[2024-03-26 11:19] LABS: Triglycerides > 2625 mg/dL (<150)
--- NOTE | 2024-03-26 11:41 | WPDCNINT ---
Assessment and Plan Assessment and plan (1) Hypertriglyceridemia: Code(s): E78.1 - Pure hyperglyceridemia Status: Acute Assessment and Plan: Patient presented with nonspecific symptoms, chest pain, not feeling well, cough. With his blood was drawn in the ER stated that his lipids were very high so they checked his lipid panel and his high triglycerides were > 2625 his cholesterol was > 650. -patient was started on insulin infusion 11.5 units/hr and was 5% infusion to prevent hypoglycemia -patient was given 2 L IV fluid bolus this more -recheck on his triglycerides remain > 2625. -will place PICC line, start dextrose 20% and increase insulin to 20 units/hour -discussed with Nephrology, continue insulin for now, if patient's triglycerides do not improve in the 1-2 days, may require plasmapheresis -started patient on fenofibrate 03/25:CT scan of the abdomen and pelvis: IMPRESSION: Moderate pulmonary edema. Hepatosplenomegaly. Hepatic steatosis. Otherwise, no acute abdominopelvic process detected (2) Pneumonia: Code(s): J18.9 - Pneumonia, unspecified organism Status: Acute Assessment and Plan: Bilateral infiltrates on chest x-ray with cough, leukocytosis -started on ceftriaxone and azithromycin - (3) Pulmonary edema: Qualifiers: Chronicity: acute Qualified Code(s): J81.0 - Acute pulmonary edema Code(s): J81.1 - Chronic pulmonary edema Status: Acute Assessment and Plan: Will obtain echocardiogram -infiltrates could be pneumonia (4) Hypothyroidism (acquired): Code(s): E03.9 - Hypothyroidism, unspecified Status: Acute Assessment and Plan: Will restart levothyroxine (5) Hyperlipidemia: Code(s): E78.5 - Hyperlipidemia, unspecified Status: Acute Assessment and Plan: Started on atorvastatin (6) MO (obstructive sleep apnea): Code(s): G47.33 - Obstructive sleep apnea (adult) (pediatric) Status: Acute Assessment and Plan: CPAP at night and while sleeping (7) Morbid (severe) obesity due to excess calories: Code(s): E66.01 - Morbid (severe) obesity due to excess calories Status: Acute Assessment and Plan: Patient will be counseled on dietary habits and exercise Plan DVT prophylaxis: Lovenox Stress ulcer prophylaxis: Not indicated Nutrition: Full liquid diet Code Status: Full code Critical Care Time Spent: 48 minutes Discussed with patient's mother and updated her with patient's condition and plan of care. I answered all questions Due to a high probability of clinically significant, life threatening deterioration, the patient required my highest level of preparedness to intervene emergently and I personally spent this critical care time directly and personally managing the patient. This critical care time included obtaining a history; examining the patient; pulse oximetry; ordering and review of studies; arranging urgent treatment with development of a management plan; evaluation of patient's response to treatment; frequent reassessment; and discussions with other providers. It was exclusive of separately billable procedures and treating other patients and teaching time. Please see Assessment and Plan section and the rest of the note for further information on patient assessment and treatment This dictation may have been done utilizing a voice recognition system. Attempts have been made to correct errors. However, there may be uncorrected grammatical, spelling, and recognitions errors present. Towboat Captain Consult Note Consult date: 03/26/24 Reason for consult: Hypertriglyceridemia hypercholesterolemia, chest pain, pulmonary edema HPI: Nam Larsenarsenio is a 39 year old male past medical history of obstructive sleep apnea, learning disability, history of chest pains, hypertriglyceridemia, hypercholesterolemia, hypothyroidism, history of elevated blood sugars, tobacco abuse present
[2024-03-26] MEDS: LEVOTHYROXINE SODIUM 75 MCG TABLET PO (12:27)
[2024-03-26] MEDS: ATORVASTATIN 20 MG TABLET PO (12:27)
[2024-03-26] MEDS: FENOFIBRATE 160 MG TABLET PO (12:27)
[2024-03-26 12:28] LABS: Glucose Point of Care 72 mg/dl (65-105)
[2024-03-26] MEDS: ENOXAPARIN 40 MG/0.4 ML SYRINGE SUB-Q (12:28)
[2024-03-26] MEDS: LIDOCAINE HCL 1% PF INJ 5 ML VIAL INFILTRATE (12:45)
[2024-03-26] MEDS: cefTRIAXone 2 GM/NS 100 ML 2 GM/100 ML BAG IVPB ×2 (13:18→21:41)
[2024-03-26] MEDS: CENTRAL LINE FLUSH 10 ML IV PUSH ×2 (13:43→21:11)
[2024-03-26 13:51] LABS: Glucose Point of Care 170 mg/dl (65-105)
[2024-03-26] MEDS: PERFLUTREN LIPID MICROSPHERES 1.5 ML VIAL DILUTED TO 10 ML TOTAL VOLUME IV PUSH (14:06)
[2024-03-26] MEDS: INSULIN HUMAN REGULAR (*BKC) 100 UNITS in SODIUM CHLORIDE 0.9% IV 99 ML 20 UNITS IV CONT ×2 (14:19→19:28)
--- NOTE | 2024-03-26 14:27 | IVDEFINITY ---
Prior to administration of IV Definity the patient was educated on the risks and benefits of the imaging enhancing agent including potential adverse side effects. The patient verbalized understanding. Allergies were verified. No exclusion criteria were identified and at least one of the following inclusion criteria were met: 1) physician request, 2) patient technically difficult to image (per the [place] [employer]ocardi[employer] guidelines of two or more segments not discernable within the apical view), or 3) questionable left ventricular function. ?
[2024-03-26 14:40] LABS: Glucose Point of Care 149 mg/dl (65-105)
[2024-03-26 15:29] LABS: Glucose Point of Care 95 mg/dl (65-105)
[2024-03-26] MEDS: ACETAMINOPHEN 325 MG TABLET 650 MG PO ×2 (15:43→23:58)
[2024-03-26 16:35] LABS: Glucose Point of Care 74 mg/dl (65-105)
--- NOTE | 2024-03-26 17:02 | PM.IMHP ---
H&P: HPI History of Present Illness Date/Time: 03/26/24 17:02 Chief Complaint: Chest pain Narrative: Pt states he has been having BL chest pains cxr shows pneumonia Pt denies any medical problems apart from sleep apnea and hypothyoidism Pt usually well but feels tired and has a bad cough Feels nauseated and has been passing alot of urine at home Pt cholesterol levels are very high looks like pt has a pneumonia wcc are also high Pt is a smoker CT abdo and pelvis shows - Moderate pulmonary edema. Hepatosplenomegaly. Hepatic steatosis. Review of Systems Review of Systems: Mild Bl chest pains Nausea polyuria tiredness weakness All other systems are negative apart from these above PMFSH Past Medical History Medical History BMI 35.0-35.9,adult Chest pain Compensated hypothyroidism Hyperlipidemia Obesity MO (obstructive sleep apnea) Stress at work Tobacco abuse Surgical History Surgical History H/O excision of mass Excision of 4cm back mass on 08/16/22 S/P appendectomy Family History Family History Mother Patient's mother is in good health Asthma Father Family history of arthritis Glioblastoma Sibling Patient's brother is in good health Social History Social History Social History: Smoking packs per day: 1 Smoking cigarettes per day: 20.0 Years smoked: 22 Smoking pack-years: 22.00 Smoking status: Current every day smoker Tobacco type: cigarettes and e-cigarettes/vaping Second hand tobacco smoke exposure: Yes Smoking end date: 02/03/21 Additional smoking assessment comments: Pt is vaping now. Alcohol intake: never Alcohol use details: Occasionally Substance use: never Substance use type: does not use Do You Feel Safe in your Home?: Yes Lack of Transportation: No Lack of Food: Never True Current Housing: I Have Housing Concerned About Future Housing: No Difficulty Paying Gas/Electric Bills: No Difficulty Paying for Meds: No Currently Unemployed: No Education: High School Diploma/GED Difficulty w/ Childcare or Family Care: No Living arrangements: with family Occupation/Education: occupation Gender identity (if verbalized by the patient): Male Sexual Orientation (if Verbalized by the Patient): Straight or Heterosexual Spiritual care concerns: No Meds Home Medications and Allergies Home Medications Medication Instructions Recorded Confirmed Type levothyroxine 100 mcg tablet 75 mcg PO DAILY 03/26/24 03/26/24 History Allergies Allergy/AdvReac Type Severity Reaction Status Date / Time Penicillins Allergy Mild Rash Verified 03/26/24 08:58 Vital Signs Vital Signs - 24 hr 03/25/24 20:11 03/25/24 20:15 03/25/24 20:16 Temperature 37.2 C Pulse Rate 94 93 91 Respiratory Rate 15 16 Blood Pressure 106/75 110/73 Pulse Oximetry 96 96 Oxygen Delivery Room Air Oxygen Flow Rate 03/25/24 22:39 03/25/24 23:14 03/25/24 23:26 Temperature 37.4 C Pulse Rate 96 Respiratory Rate 14 Blood Pressure 123/88 Pulse Oximetry 100 95 Oxygen Delivery Room Air Oxygen Flow Rate 03/25/24 20:11 03/25/24 20:17 03/25/24 20:30 Temperature Pulse Rate 85 91 90 Respiratory Rate 18 20 17 Blood Pressure Pulse Oximetry 97 96 93 Oxygen Delivery Oxygen Flow Rate 03/25/24 22:45 03/25/24 22:46 03/26/24 00:18 Temperature Pulse Rate 97 Respiratory Rate 18 20 20 Blood Pressure 138/80 123/88 Pulse Oximetry 95 100 91 Oxygen Delivery Oxygen Flow Rate 03/26/24 00:32 03/26/24 00:45 03/26/24 01:08 Temperature Pulse Rate 98 98 95 Respiratory Rate 20 19 20 Blood Pressure Pulse Oximetry 94 Oxygen Delivery Oxygen Flow Rate
[2024-03-26 17:24] LABS: Triglycerides > 2625 mg/dL (<150)
[2024-03-26 17:47] LABS: Glucose Point of Care 144 mg/dl (65-105)
[2024-03-26 18:36] LABS: Glucose Point of Care 113 mg/dl (65-105)
[2024-03-26] MEDS: NICOTINE (*PBKC) 21 MG PATCH 1 PATCH (19:24)
[2024-03-26 20:11] LABS: Glucose Point of Care 78 mg/dl (65-105)
[2024-03-26 21:23] LABS: Hemoglobin A1C 9.4 % (<5.7)
[2024-03-26 21:26] LABS: Glucose Point of Care 81 mg/dl (65-105)
[2024-03-26 22:59] LABS: Glucose Point of Care 67 mg/dl (65-105)
[2024-03-26 23:29] LABS: Triglycerides 2522 mg/dL (<150)
[2024-03-27] VITALS (15 sets, daily range): BP systolic 101–143; BP diastolic 56–96; PULSE 90–119; RESP 14–21; TEMP 36.2–37.6; O2SAT 90–100
[2024-03-27 00:09] LABS: Glucose Point of Care 75 mg/dl (65-105)
[2024-03-27] MEDS: INSULIN HUMAN REGULAR (*BKC) 100 UNITS in SODIUM CHLORIDE 0.9% IV 99 ML 20 UNITS IV CONT ×2 (00:33→05:00)
[2024-03-27 01:11] LABS: Glucose Point of Care 62 mg/dl (65-105)
[2024-03-27] MEDS: DEXTROSE 50% 25 GM/50 ML SYRINGE IV PUSH (01:20)
[2024-03-27 01:35] LABS: Glucose Point of Care 143 mg/dl (65-105)
[2024-03-27] MEDS: AZITHROMYCIN 500 MG/NS 250 ML 500 MG/250 ML BAG 250 MG IVPB (01:52)
[2024-03-27 02:40] LABS: Glucose Point of Care 61 mg/dl (65-105)
[2024-03-27 03:08] LABS: Glucose Point of Care 76 mg/dl (65-105)
[2024-03-27 04:09] LABS: Glucose Point of Care 78 mg/dl (65-105)
[2024-03-27] MEDS: CENTRAL LINE FLUSH 10 ML IV PUSH ×3 (04:09→19:53)
[2024-03-27 04:12] LABS: Basophils Percent Auto 0.4 % (0.2-1.2); Eosinophils Absolute Auto 0.1 K/mm3 (0-0.3); Eosinophils Percent Auto 0.8 % (0-4.4); Hematocrit 36.9 % (42.0-52.0); Hemoglobin 12.6 g/dL (14.0-18.0); Immature Granulocyte Absolute 0.06 K/mm3 (0.00-0.031); Immature Granulocyte Percent A 0.6 % (0-0.5); Lymphocytes Absolute Auto 1.13 K/mm3 (0.9-3.2); Lymphocytes Percent Auto 10.4 % (18.3-44.2); Mean Corpuscular HGB Conc 34.1 g/dl (32-36); Mean Corpuscular Hemoglobin 30.9 pg (26-34); Mean Corpuscular Volume 90.4 fl (80-100); Mean Platelet Volume 11.1 fl (7.4-10.4); Monocytes Absolute Auto 0.8 K/mm3 (0.1-0.6); Neutrophils Absolute Auto 8.8 K/mm3 (1.3-6.7); Neutrophils Percent Auto 80.8 % (45.5-73.1); Platelet Count Result 174 k/mm3 (150-375); Red Blood Count 4.08 M/mm3 (4.6-6.20); Red Cell Distribution Width 13.7 % (11.5-14.5); White Blood Count 10.9 K/mm3 (4.5-10.0)
[2024-03-27 04:21] LABS: Lactic Acid Reflex 1.1 mmol/L (0.7-2.0)
[2024-03-27 04:34] LABS: Alanine Aminotransferase 55 U/L (6-50); Albumin Level 3.3 g/dL (3.5-5.1); Alkaline Phosphatase 75 U/L (38-126); Anion Gap 6 mmol/L (4-12); Aspartate Amino Transferase 49 U/L (17-59); Bilirubin,Total 0.6 mg/dL (0.2-1.3); Blood Urea Nitrogen 3 mg/dL (9-20); Calcium 7.6 mg/dL (8.4-10.2); Carbon Dioxide 20 mmol/L (22-30); Chloride 109 mmol/L (98-107); Estimated CRCL calculation 211 ml/min; Estimated Glomerular Filt Rate > 60; Glucose 83 mg/dL (65-110); Phosphorus 3.3 mg/dL (2.5-4.5); Sodium 135 mmol/L (137-145)
[2024-03-27 04:52] LABS: Triglycerides 2261 mg/dL (<150)
[2024-03-27 05:28] LABS: Glucose Point of Care 77 mg/dl (65-105)
[2024-03-27] MEDS: LEVOTHYROXINE SODIUM 75 MCG TABLET PO (06:14)
[2024-03-27 06:28] LABS: Glucose Point of Care 79 mg/dl (65-105)
[2024-03-27 07:35] LABS: Glucose Point of Care 63 mg/dl (65-105)
[2024-03-27 08:39] LABS: Glucose Point of Care 78 mg/dl (65-105)
[2024-03-27] MEDS: POTASSIUM CHLORIDE 20 MEQ ER TABLET 40 MEQ PO (08:51)
[2024-03-27] MEDS: ENOXAPARIN 40 MG/0.4 ML SYRINGE SUB-Q (08:51)
[2024-03-27] MEDS: NICOTINE (*PBKC) 21 MG PATCH 1 PATCH TRANSDERM (08:51)
[2024-03-27] MEDS: cefTRIAXone 2 GM/NS 100 ML 2 GM/100 ML BAG IVPB ×2 (08:52→20:30)
[2024-03-27] MEDS: FENOFIBRATE 160 MG TABLET PO (08:52)
[2024-03-27] MEDS: ATORVASTATIN 20 MG TABLET PO (08:52)
[2024-03-27] MEDS: POTASSIUM CHLORIDE 20 MEQ ER TABLET PO (08:52)
[2024-03-27] MEDS: ACETAMINOPHEN 325 MG TABLET 650 MG PO ×3 (09:16→21:41)
--- NOTE | 2024-03-27 09:18 | PM.CNCAR ---
Assessment and Plan Assessment and plan (1) Pneumonia: Code(s): J18.9 - Pneumonia, unspecified organism Status: Acute Assessment and Plan: He has been started on abx. Treatment per primary service (2) Diastolic dysfunction: Code(s): I51.89 - Other ill-defined heart diseases Status: Acute Assessment and Plan: Echo showed grade 3 diastolic dysfunction. He did have pulmonary edema on initial CXR, may be related to his pneumonia vs CHF. Follow up CXR was clear. Overall he does not appear to be in decompensated heart failure. Emphasized BP control and weight loss. CHF counseling. (3) Hypertriglyceridemia: Code(s): E78.1 - Pure hyperglyceridemia Status: Acute Assessment and Plan: On insulin drip, statin, and fenofibrate. May require plasmapheresis if triglycerides do not improve. Management per primary team. (4) Morbid obesity due to excess calories: Code(s): E66.01 - Morbid (severe) obesity due to excess calories Status: Acute Assessment and Plan: Weight loss counseling was performed. (5) MO (obstructive sleep apnea): Code(s): G47.33 - Obstructive sleep apnea (adult) (pediatric) Status: Acute Assessment and Plan: He is compliant with CPAP (6) Tobacco abuse: Code(s): Z72.0 - Tobacco use Status: Acute Assessment and Plan: Smoking and vaping cessation counseling performed. Plan No specific additional cardiac recommendations to make at this time. Will follow along on an as needed basis, please call with questions. History of Present Illness History of Present Illness Consult date/time: 03/27/24 09:18 Requesting physician: Ruben Alatorre MD Consult reason: Other (diastolic dysfunction) Reason For Visit: PNA Narrative: Nam Mckoy is a 39 year old male with obstructive sleep apnea, hypertriglyceridemia, hypercholesterolemia who presented to the emergency department with a chief complaint of weakness. Cardiology is being asked to see him because of a finding of diastolic dysfunction on echo. Patient began experiencing weakness a couple of days ago which gradually worsened prompting evaluation at the emergency department. He also reports experiencing a sharp, constant chest pain that began while he was at work earlier this week. He has been found to have significantly elevated triglyceride and cholesterol levels, and he is being treated for pneumonia. He denies any shortness of breath, swelling, orthopnea, paroxysmal nocturnal dyspnea, syncope, pre-syncope. He complains right shoulder pain and states he is unable to lift his arm. Review of Systems Review of Systems: All systems reviewed & are unremarkable except as noted in HPI and below PMFSH Past Medical History Medical History BMI 35.0-35.9,adult Chest pain Compensated hypothyroidism Hyperlipidemia Obesity MO (obstructive sleep apnea) Stress at work Tobacco abuse Surgical History Surgical History H/O excision of mass Excision of 4cm back mass on 08/16/22 S/P appendectomy Family History Family History Mother Patient's mother is in good health Asthma Father Family history of arthritis Glioblastoma Sibling Patient's brother is in good health Social History Social History Social History: Smoking packs per day: 1 Smoking cigarettes per day: 20.0 Years smoked: 22 Smoking pack-years: 22.00 Smoking status: Current every day smoker Tobacco type: cigarettes and e-cigarettes/vaping Second hand tobacco smoke exposure: Yes Smoking end date: 02/03/21 Additional smoking assessment comments: Pt is vaping now. Alcohol intake: never Alcohol use details: Occasionally Substance use: n
[2024-03-27 10:41] LABS: Glucose Point of Care 156 mg/dl (65-105)
[2024-03-27] MEDS: ACETAMINOPHEN 325 MG TABLET PO (11:03)
[2024-03-27] MEDS: INSULIN HUMAN REGULAR (*BKC) 100 UNITS in SODIUM CHLORIDE 0.9% IV 99 ML 19 UNITS IV CONT ×3 (11:10→20:31)
--- NOTE | 2024-03-27 11:14 | WPDINTPN ---
Progress Note: A&P Assessment and Plan (1) Hypertriglyceridemia: Code(s): E78.1 - Pure hyperglyceridemia Status: Acute Assessment and Plan: Patient presented with nonspecific symptoms, chest pain, not feeling well, cough. With his blood was drawn in the ER stated that his lipids were very high so they checked his lipid panel and his high triglycerides were > 2625 his cholesterol was > 650. -patient was started on insulin infusion 11.5 units/hr and was 5% infusion to prevent hypoglycemia -patient was given 2 L IV fluid bolus on 03/26 -recheck on his triglycerides remain > 2625. -PICC line was placed on 03/26, and started on Dextrose 20% and insulin to 20 units/hour -discussed with Nephrology, continue insulin for now, if patient's triglycerides do not improve in the 1-2 days, may require plasmapheresis -continue fenofibrate and atorvastatin Continue insulin infusion and dextrose 20%, will do serial triglycerides 03/25:CT scan of the abdomen and pelvis: IMPRESSION: Moderate pulmonary edema. Hepatosplenomegaly. Hepatic steatosis. Otherwise, no acute abdominopelvic process detected (2) Pneumonia: Code(s): J18.9 - Pneumonia, unspecified organism Status: Acute Assessment and Plan: Bilateral infiltrates on chest x-ray with cough, leukocytosis -continue ceftriaxone and azithromycin -03/26: Preliminary blood cultures are negative -03/26: Urine culture pending Chest x-ray this morning: Minimal patchy haziness left midlung. Correlate for pneumonia. Right-sided PICC line in place. (3) Pulmonary edema: Qualifiers: Chronicity: acute Qualified Code(s): J81.0 - Acute pulmonary edema Code(s): J81.1 - Chronic pulmonary edema Status: Acute Assessment and Plan: Initial chest x-ray on admission showed pulmonary edema 03/26/2024 Echocardiogram Summary ? 1. Left ventricular chamber dimension is normal. ? 2. Left ventricular systolic function is normal, estimated at 65-70%. ? 3. The left ventricular diastolic function is grade III diastolic dysfunction. ? 4. Right ventricular chamber dimension is mildly enlarged. ? 5. Right ventricular systolic function is normal. ? 6. No significant valvular disease. (4) Diastolic dysfunction: Code(s): I51.89 - Other ill-defined heart diseases Status: Acute Assessment and Plan: New onset grade 3 diastolic dysfunction on echocardiogram as above -cardiology has been consulted, await recommendations (5) Hypothyroidism (acquired): Code(s): E03.9 - Hypothyroidism, unspecified Status: Acute Assessment and Plan: Continue levothyroxine -TSH within normal limits (6) Hyperlipidemia: Code(s): E78.5 - Hyperlipidemia, unspecified Status: Acute Assessment and Plan: Cholesterol on admission was > 650, LDL was 88, HDL test was not performed - Continue atorvastatin (7) OM (obstructive sleep apnea): Code(s): G47.33 - Obstructive sleep apnea (adult) (pediatric) Status: Acute Assessment and Plan: CPAP at night and while sleeping (8) Morbid (severe) obesity due to excess calories: Code(s): E66.01 - Morbid (severe) obesity due to excess calories Status: Acute Assessment and Plan: Patient will be counseled on dietary habits and exercise (9) Diabetes: Code(s): E11.9 - Type 2 diabetes mellitus without complications Status: Acute Assessment and Plan: Hemoglobin A1c was 9.4 this admission, likely new onset diabetes Will have dietitian and clinical study manager follow the patient -currently on insulin drip, will require treatment for diabetes once insulin drip is off Plan DVT prophylaxis: Lovenox Stress ulcer prophylaxis: Not indicated Nutrition: Will increase to diabetic and heart healthy diet Code Status: Full code Critical Care Time Spent: 32 minutes Discussed with patient's mother and updated her with patient's condition and cata
[2024-03-27 11:58] LABS: Glucose Point of Care 166 mg/dl (65-105)
[2024-03-27 12:35] LABS: Glucose Point of Care 183 mg/dl (65-105)
[2024-03-27 13:45] LABS: Glucose Point of Care 206 mg/dl (65-105)
[2024-03-27 13:46] LABS: Triglycerides 1785 mg/dL (<150)
[2024-03-27 14:35] LABS: Glucose Point of Care 154 mg/dl (65-105)
[2024-03-27 15:30] LABS: Glucose Point of Care 155 mg/dl (65-105)
[2024-03-27 16:43] LABS: Glucose Point of Care 141 mg/dl (65-105)
[2024-03-27 17:49] LABS: Glucose Point of Care 213 mg/dl (65-105)
[2024-03-27 18:24] LABS: Triglycerides 1521 mg/dL (<150)
[2024-03-27 18:38] LABS: Glucose Point of Care 247 mg/dl (65-105)
[2024-03-27 19:52] LABS: Glucose Point of Care 209 mg/dl (65-105)
[2024-03-27] MEDS: MELATONIN 3 MG TABLET PO (20:30)
[2024-03-27] MEDS: METOPROLOL TARTRATE 12.5 MG TABLET PO (20:31)
[2024-03-27 21:18] LABS: Glucose Point of Care 162 mg/dl (65-105)
[2024-03-27 22:49] LABS: Glucose Point of Care 160 mg/dl (65-105)
[2024-03-28] VITALS (19 sets, daily range): BP systolic 104–137; BP diastolic 59–86; PULSE 80–113; RESP 11–24; TEMP 36.8–38.6; O2SAT 91–100; BMI 40.4
[2024-03-28 00:07] LABS: Glucose Point of Care 133 mg/dl (65-105)
[2024-03-28] MEDS: AZITHROMYCIN 500 MG/NS 250 ML 500 MG/250 ML BAG 250 MG IVPB ×2 (00:09→23:52)
[2024-03-28 01:55] LABS: Glucose Point of Care 116 mg/dl (65-105)
[2024-03-28] MEDS: INSULIN HUMAN REGULAR (*BKC) 100 UNITS in SODIUM CHLORIDE 0.9% IV 99 ML 19 UNITS IV CONT ×4 (02:00→22:12)
[2024-03-28 02:38] LABS: Glucose Point of Care 109 mg/dl (65-105)
[2024-03-28 04:23] LABS: Glucose Point of Care 96 mg/dl (65-105)
[2024-03-28] MEDS: CENTRAL LINE FLUSH 10 ML IV PUSH ×3 (04:46→20:18)
[2024-03-28 04:56] LABS: Triglycerides 1310 mg/dL (<150)
[2024-03-28] MEDS: LEVOTHYROXINE SODIUM 75 MCG TABLET PO (05:57)
[2024-03-28 06:16] LABS: Basophils Percent Auto 0.2 % (0.2-1.2); Eosinophils Absolute Auto 0.1 K/mm3 (0-0.3); Eosinophils Percent Auto 1.1 % (0-4.4); Hemoglobin 12.1 g/dL (14.0-18.0); Immature Granulocyte Absolute 0.13 K/mm3 (0.00-0.031); Immature Granulocyte Percent A 1.1 % (0-0.5); Lymphocytes Absolute Auto 1.21 K/mm3 (0.9-3.2); Lymphocytes Percent Auto 9.9 % (18.3-44.2); Mean Corpuscular HGB Conc 31.8 g/dl (32-36); Mean Corpuscular Hemoglobin 29.8 pg (26-34); Mean Corpuscular Volume 93.6 fl (80-100); Monocytes Percent Auto 8.2 % (2.6-8.5); Neutrophils Absolute Auto 9.7 K/mm3 (1.3-6.7); Neutrophils Percent Auto 79.5 % (45.5-73.1); Platelet Count Result 179 k/mm3 (150-375); Red Blood Count 4.06 M/mm3 (4.6-6.20); Red Cell Distribution Width 13.6 % (11.5-14.5); White Blood Count 12.2 K/mm3 (4.5-10.0)
[2024-03-28 06:26] LABS: Alanine Aminotransferase 66 U/L (6-50); Albumin Level 3.3 g/dL (3.5-5.1); Alkaline Phosphatase 78 U/L (38-126); Anion Gap 3 mmol/L (4-12); Aspartate Amino Transferase 49 U/L (17-59); Bilirubin,Total 0.7 mg/dL (0.2-1.3); Calcium 7.7 mg/dL (8.4-10.2); Carbon Dioxide 24 mmol/L (22-30); Chloride 107 mmol/L (98-107); Estimated CRCL calculation 156 ml/min; Estimated Glomerular Filt Rate > 60; Glucose 84 mg/dL (65-110); Magnesium 1.8 mg/dL (1.6-2.3); Phosphorus 2.7 mg/dL (2.5-4.5); Potassium 3.1 mmol/L (3.4-5.0); Sodium 134 mmol/L (137-145)
[2024-03-28 06:30] LABS: Blood Urea Nitrogen < 2 mg/dL (9-20); Triglycerides 1083 mg/dL (<150)
[2024-03-28 06:32] LABS: Glucose Point of Care 95 mg/dl (65-105)
[2024-03-28] MEDS: NICOTINE (*PBKC) 21 MG PATCH 1 PATCH TRANSDERM (08:09)
[2024-03-28] MEDS: FENOFIBRATE 160 MG TABLET PO (08:10)
[2024-03-28] MEDS: POTASSIUM CHLORIDE 20 MEQ ER TABLET 40 MEQ PO (08:10)
[2024-03-28] MEDS: METOPROLOL TARTRATE 12.5 MG TABLET PO ×2 (08:10→20:17)
[2024-03-28] MEDS: ATORVASTATIN 20 MG TABLET PO (08:11)
[2024-03-28] MEDS: ENOXAPARIN 40 MG/0.4 ML SYRINGE SUB-Q (08:12)
[2024-03-28] MEDS: cefTRIAXone 2 GM/NS 100 ML 2 GM/100 ML BAG IVPB ×2 (08:12→20:17)
[2024-03-28] MEDS: KCL 40 MEQ/WATER 100 ML 100 ML 25 ML IVPB (08:13)
[2024-03-28 08:37] LABS: Glucose Point of Care 94 mg/dl (65-105)
--- NOTE | 2024-03-28 09:08 | WPDINTPN ---
Progress Note: A&P Assessment and Plan (1) Hypertriglyceridemia: Code(s): E78.1 - Pure hyperglyceridemia Status: Acute Assessment and Plan: Patient presented with nonspecific symptoms, chest pain, not feeling well, cough. With his blood was drawn in the ER stated that his lipids were very high so they checked his lipid panel and his high triglycerides were > 2625 his cholesterol was > 650. -patient was started on insulin infusion, adequately fluid-resuscitated the ICU -PICC line was placed on 03/26, and started on Dextrose 20% and increased insulin infusion -discussed with Nephrology, continue insulin for now, if patient's triglycerides do not improve in the 1-2 days, may require plasmapheresis -continue fenofibrate and atorvastatin Continue insulin infusion and dextrose 20%, triglycerides improving, continue to monitor -will stop insulin infusion once triglycerides are <500 03/25:CT scan of the abdomen and pelvis: IMPRESSION: Moderate pulmonary edema. Hepatosplenomegaly. Hepatic steatosis. Otherwise, no acute abdominopelvic process detected (2) Pneumonia: Code(s): J18.9 - Pneumonia, unspecified organism Status: Acute Assessment and Plan: Bilateral infiltrates on chest x-ray with cough, leukocytosis -continue ceftriaxone and azithromycin -03/26: Preliminary blood cultures -no growth to date -03/26: Urine culture - no growth Chest x-ray 03/27: Minimal patchy haziness left midlung. Correlate for pneumonia. Right-sided PICC line in place. (3) Pulmonary edema: Qualifiers: Chronicity: acute Qualified Code(s): J81.0 - Acute pulmonary edema Code(s): J81.1 - Chronic pulmonary edema Status: Acute Assessment and Plan: Initial chest x-ray on admission showed pulmonary edema 03/26/2024 Echocardiogram Summary ? 1. Left ventricular chamber dimension is normal. ? 2. Left ventricular systolic function is normal, estimated at 65-70%. ? 3. The left ventricular diastolic function is grade III diastolic dysfunction. ? 4. Right ventricular chamber dimension is mildly enlarged. ? 5. Right ventricular systolic function is normal. ? 6. No significant valvular disease. (4) Diastolic dysfunction: Code(s): I51.89 - Other ill-defined heart diseases Status: Acute Assessment and Plan: New onset grade 3 diastolic dysfunction on echocardiogram as above -appreciate cardiology evaluation and recommendation (5) Hypothyroidism (acquired): Code(s): E03.9 - Hypothyroidism, unspecified Status: Acute Assessment and Plan: Continue levothyroxine -TSH within normal limits (6) Hyperlipidemia: Code(s): E78.5 - Hyperlipidemia, unspecified Status: Acute Assessment and Plan: Cholesterol on admission was > 650, LDL was 88, HDL test was not performed - Continue atorvastatin (7) MO (obstructive sleep apnea): Code(s): G47.33 - Obstructive sleep apnea (adult) (pediatric) Status: Acute Assessment and Plan: CPAP at night and while sleeping (8) Morbid (severe) obesity due to excess calories: Code(s): E66.01 - Morbid (severe) obesity due to excess calories Status: Acute Assessment and Plan: Patient will be counseled on dietary habits and exercise (9) Diabetes: Code(s): E11.9 - Type 2 diabetes mellitus without complications Status: Acute Assessment and Plan: Hemoglobin A1c was 9.4 this admission, likely new onset diabetes Will have dietitian and early childhood special educator follow the patient -currently on insulin drip, will require treatment for diabetes once insulin drip is off Plan DVT prophylaxis: Lovenox Stress ulcer prophylaxis: Not indicated Nutrition: diabetic and heart healthy diet Code Status: Full code Critical Care Time Spent: 32 minutes Discussed with patient's mother and updated her with patient's condition and plan of care. I answered all questions Due to a high
[2024-03-28 11:35] LABS: Glucose Point of Care 165 mg/dl (65-105)
[2024-03-28 12:03] LABS: Glucose Point of Care 145 mg/dl (65-105)
--- NOTE | 2024-03-28 12:25 | PCFNICU ---
ICU Rounding Note: Pt current nutrition is DBCC. Last recorded weight is 120.8 kg, no weight loss reported. Bowel Motility: +BM reported 03/27 Labs Reviewed:TG 1083, K 3.1,NA 134, Hct 38.0,Hgb 12.1 Meds Noted:Insulin Drip, Rocephin, Lipitor, Lovenox Skin:WNL Additional Notes: Spoke with patient today. Tolerated DBCC/Heart Healthy diet today. Agree with diet orders. Window Cutter/Dietitian will see patient later today when parent is present. I will continue to follow in ICU rounds.
[2024-03-28 12:30] LABS: Triglycerides 986 mg/dL (<150)
[2024-03-28 13:56] LABS: Glucose Point of Care 184 mg/dl (65-105)
--- NOTE | 2024-03-28 14:29 | PM.IMPN ---
Progress Note: A&P Assessment and Plan (1) Hypertriglyceridemia: Code(s): E78.1 - Pure hyperglyceridemia Status: Acute Assessment and Plan: Patient presented with nonspecific symptoms, chest pain, not feeling well, cough. With his blood was drawn in the ER stated that his lipids were very high so they checked his lipid panel and his high triglycerides were > 2625 his cholesterol was > 650. -patient was started on insulin infusion, adequately fluid-resuscitated the ICU -PICC line was placed on 03/26, and started on Dextrose 20% and increased insulin infusion -discussed with Nephrology, continue insulin for now, if patient's triglycerides do not improve in the 1-2 days, may require plasmapheresis -continue fenofibrate and atorvastatin Continue insulin infusion and dextrose 20%, triglycerides improving, continue to monitor -will stop insulin infusion once triglycerides are <500 03/25:CT scan of the abdomen and pelvis: IMPRESSION: Moderate pulmonary edema. Hepatosplenomegaly. Hepatic steatosis. Otherwise, no acute abdominopelvic process detected (2) Pneumonia: Code(s): J18.9 - Pneumonia, unspecified organism Status: Acute Assessment and Plan: Bilateral infiltrates on chest x-ray with cough, leukocytosis -continue ceftriaxone and azithromycin -03/26: Preliminary blood cultures -no growth to date -03/26: Urine culture - no growth Chest x-ray 03/27: Minimal patchy haziness left midlung. Correlate for pneumonia. Right-sided PICC line in place. (3) Pulmonary edema: Qualifiers: Chronicity: acute Qualified Code(s): J81.0 - Acute pulmonary edema Code(s): J81.1 - Chronic pulmonary edema Status: Acute Assessment and Plan: Initial chest x-ray on admission showed pulmonary edema 03/26/2024 Echocardiogram Summary ? 1. Left ventricular chamber dimension is normal. ? 2. Left ventricular systolic function is normal, estimated at 65-70%. ? 3. The left ventricular diastolic function is grade III diastolic dysfunction. ? 4. Right ventricular chamber dimension is mildly enlarged. ? 5. Right ventricular systolic function is normal. ? 6. No significant valvular disease. (4) Diastolic dysfunction: Code(s): I51.89 - Other ill-defined heart diseases Status: Acute Assessment and Plan: New onset grade 3 diastolic dysfunction on echocardiogram as above -appreciate cardiology evaluation and recommendation (5) Hypothyroidism (acquired): Code(s): E03.9 - Hypothyroidism, unspecified Status: Acute Assessment and Plan: Continue levothyroxine -TSH within normal limits (6) Hyperlipidemia: Code(s): E78.5 - Hyperlipidemia, unspecified Status: Acute Assessment and Plan: Cholesterol on admission was > 650, LDL was 88, HDL test was not performed - Continue atorvastatin (7) MO (obstructive sleep apnea): Code(s): G47.33 - Obstructive sleep apnea (adult) (pediatric) Status: Acute Assessment and Plan: CPAP at night and while sleeping (8) Morbid (severe) obesity due to excess calories: Code(s): E66.01 - Morbid (severe) obesity due to excess calories Status: Acute Assessment and Plan: Patient will be counseled on dietary habits and exercise (9) Diabetes: Code(s): E11.9 - Type 2 diabetes mellitus without complications Status: Acute Assessment and Plan: Hemoglobin A1c was 9.4 this admission, likely new onset diabetes Will have dietitian and medical educator follow the patient -currently on insulin drip, will require treatment for diabetes once insulin drip is off Plan DVT prophylaxis: Lovenox Stress ulcer prophylaxis: Not indicated Nutrition: diabetic and heart healthy diet Code Status: Full code Subjective Date/time seen: 03/28/24 14:29 Interval history: No overnight events. Remains on insulin drip. Have some headache. Review of Systems Review of Systems:
[2024-03-28 15:02] LABS: Glucose Point of Care 179 mg/dl (65-105)
[2024-03-28 16:40] LABS: Glucose Point of Care 163 mg/dl (65-105)
[2024-03-28 18:22] LABS: Glucose Point of Care 236 mg/dl (65-105)
[2024-03-28 19:14] LABS: Triglycerides 1011 mg/dL (<150)
[2024-03-28] MEDS: MELATONIN 3 MG TABLET PO (20:17)
[2024-03-28] MEDS: ACETAMINOPHEN 325 MG TABLET 650 MG PO (20:27)
[2024-03-28 20:28] LABS: Glucose Point of Care 206 mg/dl (65-105)
[2024-03-28 22:13] LABS: Glucose Point of Care 182 mg/dl (65-105)
[2024-03-28 23:58] LABS: Glucose Point of Care 146 mg/dl (65-105)
[2024-03-29] VITALS (21 sets, daily range): BP systolic 103–146; BP diastolic 48–98; PULSE 71–105; RESP 11–24; TEMP 36.8–37.7; O2SAT 92–100
[2024-03-29 00:30] LABS: Triglycerides 902 mg/dL (<150)
[2024-03-29 01:44] LABS: Glucose Point of Care 103 mg/dl (65-105)
[2024-03-29] MEDS: INSULIN HUMAN REGULAR (*BKC) 100 UNITS in SODIUM CHLORIDE 0.9% IV 99 ML 19 UNITS IV CONT ×5 (03:01→21:04)
[2024-03-29 03:09] LABS: Glucose Point of Care 88 mg/dl (65-105)
[2024-03-29 04:30] LABS: Glucose Point of Care 84 mg/dl (65-105)
[2024-03-29 05:22] LABS: Basophils Percent Auto 0.3 % (0.2-1.2); Eosinophils Absolute Auto 0.3 K/mm3 (0-0.3); Eosinophils Percent Auto 2.3 % (0-4.4); Hematocrit 37.4 % (42.0-52.0); Immature Granulocyte Percent A 0.9 % (0-0.5); Lymphocytes Absolute Auto 1.12 K/mm3 (0.9-3.2); Lymphocytes Percent Auto 9.7 % (18.3-44.2); Mean Corpuscular HGB Conc 32.1 g/dl (32-36); Mean Corpuscular Hemoglobin 29.7 pg (26-34); Mean Corpuscular Volume 92.6 fl (80-100); Mean Platelet Volume 10.1 fl (7.4-10.4); Monocytes Percent Auto 8.9 % (2.6-8.5); Neutrophils Percent Auto 77.9 % (45.5-73.1); Platelet Count Result 191 k/mm3 (150-375); Red Blood Count 4.04 M/mm3 (4.6-6.20); White Blood Count 11.6 K/mm3 (4.5-10.0)
[2024-03-29] MEDS: CENTRAL LINE FLUSH 10 ML IV PUSH ×3 (05:42→21:06)
[2024-03-29 05:55] LABS: Alanine Aminotransferase 74 U/L (6-50); Albumin Level 3.3 g/dL (3.5-5.1); Alkaline Phosphatase 82 U/L (38-126); Anion Gap 3 mmol/L (4-12); Aspartate Amino Transferase 41 U/L (17-59); Bilirubin,Total 0.4 mg/dL (0.2-1.3); Blood Urea Nitrogen 2 mg/dL (9-20); Calcium 7.9 mg/dL (8.4-10.2); Carbon Dioxide 24 mmol/L (22-30); Chloride 108 mmol/L (98-107); Estimated CRCL calculation 158 ml/min; Estimated Glomerular Filt Rate > 60; Glucose 68 mg/dL (65-110); Lipase 45 U/L (23-300); Phosphorus 3.2 mg/dL (2.5-4.5); Potassium 3.2 mmol/L (3.4-5.0); Sodium 135 mmol/L (137-145)
[2024-03-29 06:02] LABS: Glucose Point of Care 100 mg/dl (65-105)
[2024-03-29 06:58] LABS: Glucose Point of Care 130 mg/dl (65-105)
[2024-03-29 07:23] LABS: Triglycerides 823 mg/dL (<150)
[2024-03-29] MEDS: POTASSIUM CHLORIDE 20 MEQ ER TABLET 40 MEQ PO (08:27)
[2024-03-29] MEDS: NICOTINE (*PBKC) 21 MG PATCH 1 PATCH TRANSDERM (08:27)
[2024-03-29] MEDS: ENOXAPARIN 40 MG/0.4 ML SYRINGE SUB-Q (08:27)
[2024-03-29] MEDS: FENOFIBRATE 160 MG TABLET PO (08:28)
[2024-03-29] MEDS: LEVOTHYROXINE SODIUM 75 MCG TABLET PO (08:28)
[2024-03-29] MEDS: METOPROLOL TARTRATE 12.5 MG TABLET PO ×2 (08:28→19:58)
[2024-03-29] MEDS: KCL 40 MEQ/WATER 100 ML 100 ML 25 ML IVPB (08:28)
[2024-03-29] MEDS: cefTRIAXone 2 GM/NS 100 ML 2 GM/100 ML BAG IVPB ×2 (08:28→19:56)
[2024-03-29] MEDS: ATORVASTATIN 20 MG TABLET PO (08:28)
[2024-03-29 08:44] LABS: Glucose Point of Care 142 mg/dl (65-105)
[2024-03-29 09:41] LABS: Glucose Point of Care 203 mg/dl (65-105)
--- NOTE | 2024-03-29 09:54 | WPDINTPN ---
Progress Note: A&P Assessment and Plan (1) Hypertriglyceridemia: Code(s): E78.1 - Pure hyperglyceridemia Status: Acute Assessment and Plan: Patient presented with nonspecific symptoms, chest pain, not feeling well, cough. With his blood was drawn in the ER stated that his lipids were very high so they checked his lipid panel and his high triglycerides were > 2625 his cholesterol was > 650. -patient was started on insulin infusion, adequately fluid-resuscitated the ICU -PICC line was placed on 03/26, and started on Dextrose 20% and increased insulin infusion -discussed with Nephrology, continue insulin for now, if patient's triglycerides do not improve in the 1-2 days, may require plasmapheresis -continue fenofibrate and increase atorvastatin dose Continue insulin infusion and dextrose 20%, triglycerides improving, continue to monitor -will stop insulin infusion once triglycerides are <500 03/25:CT scan of the abdomen and pelvis: IMPRESSION: Moderate pulmonary edema. Hepatosplenomegaly. Hepatic steatosis. Otherwise, no acute abdominopelvic process detected (2) Pneumonia: Code(s): J18.9 - Pneumonia, unspecified organism Status: Acute Assessment and Plan: Bilateral infiltrates on chest x-ray with cough, leukocytosis -continue ceftriaxone and azithromycin -03/26: Preliminary blood cultures -no growth to date -03/26: Urine culture - no growth Chest x-ray 03/27: Minimal patchy haziness left midlung. Correlate for pneumonia. Right-sided PICC line in place. (3) Pulmonary edema: Qualifiers: Chronicity: acute Qualified Code(s): J81.0 - Acute pulmonary edema Code(s): J81.1 - Chronic pulmonary edema Status: Acute Assessment and Plan: Initial chest x-ray on admission showed pulmonary edema 03/26/2024 Echocardiogram Summary ? 1. Left ventricular chamber dimension is normal. ? 2. Left ventricular systolic function is normal, estimated at 65-70%. ? 3. The left ventricular diastolic function is grade III diastolic dysfunction. ? 4. Right ventricular chamber dimension is mildly enlarged. ? 5. Right ventricular systolic function is normal. ? 6. No significant valvular disease. (4) Diastolic dysfunction: Code(s): I51.89 - Other ill-defined heart diseases Status: Acute Assessment and Plan: New onset grade 3 diastolic dysfunction on echocardiogram as above -appreciate cardiology evaluation and recommendation (5) Hypothyroidism (acquired): Code(s): E03.9 - Hypothyroidism, unspecified Status: Acute Assessment and Plan: Continue levothyroxine -TSH within normal limits (6) Hyperlipidemia: Code(s): E78.5 - Hyperlipidemia, unspecified Status: Acute Assessment and Plan: Cholesterol on admission was > 650, LDL was 88, HDL test was not performed -increase atorvastatin (7) MO (obstructive sleep apnea): Code(s): G47.33 - Obstructive sleep apnea (adult) (pediatric) Status: Acute Assessment and Plan: CPAP at night and while sleeping (8) Morbid (severe) obesity due to excess calories: Code(s): E66.01 - Morbid (severe) obesity due to excess calories Status: Acute Assessment and Plan: Patient will be counseled on dietary habits and exercise (9) Diabetes: Code(s): E11.9 - Type 2 diabetes mellitus without complications Status: Acute Assessment and Plan: Hemoglobin A1c was 9.4 this admission, likely new onset diabetes Appreciate dietitian and elementary educator evaluating the patient -currently on insulin drip, will require treatment for diabetes once insulin drip is off Plan DVT prophylaxis: Lovenox Stress ulcer prophylaxis: Not indicated Nutrition: diabetic and heart healthy diet Code Status: Full code Critical Care Time Spent: 32 minutes Discussed with patient's mother and updated her with patient's condition and plan of care. I answered all question
[2024-03-29 11:06] LABS: Glucose Point of Care 165 mg/dl (65-105)
[2024-03-29 11:57] LABS: Glucose Point of Care 146 mg/dl (65-105)
[2024-03-29 12:38] LABS: Triglycerides 696 mg/dL (<150)
[2024-03-29 13:20] LABS: Glucose Point of Care 132 mg/dl (65-105)
[2024-03-29 14:30] LABS: Glucose Point of Care 113 mg/dl (65-105)
--- NOTE | 2024-03-29 14:31 | PM.IMPN ---
Progress Note: A&P Assessment and Plan (1) Hypertriglyceridemia: Code(s): E78.1 - Pure hyperglyceridemia Status: Acute Assessment and Plan: Patient presented with nonspecific symptoms, chest pain, not feeling well, cough. With his blood was drawn in the ER stated that his lipids were very high so they checked his lipid panel and his high triglycerides were > 2625 his cholesterol was > 650. -patient was started on insulin infusion, adequately fluid-resuscitated the ICU -PICC line was placed on 03/26, and started on Dextrose 20% and increased insulin infusion -discussed with Nephrology, continue insulin for now, if patient's triglycerides do not improve in the 1-2 days, may require plasmapheresis -continue fenofibrate and atorvastatin Continue insulin infusion and dextrose 20%, triglycerides improving, continue to monitor -will stop insulin infusion once triglycerides are <500 03/25:CT scan of the abdomen and pelvis: IMPRESSION: Moderate pulmonary edema. Hepatosplenomegaly. Hepatic steatosis. Otherwise, no acute abdominopelvic process detected (2) Pneumonia: Code(s): J18.9 - Pneumonia, unspecified organism Status: Acute Assessment and Plan: Bilateral infiltrates on chest x-ray with cough, leukocytosis -continue ceftriaxone and azithromycin -03/26: Preliminary blood cultures -no growth to date -03/26: Urine culture - no growth Chest x-ray 03/27: Minimal patchy haziness left midlung. Correlate for pneumonia. Right-sided PICC line in place. (3) Pulmonary edema: Qualifiers: Chronicity: acute Qualified Code(s): J81.0 - Acute pulmonary edema Code(s): J81.1 - Chronic pulmonary edema Status: Acute Assessment and Plan: Initial chest x-ray on admission showed pulmonary edema 03/26/2024 Echocardiogram Summary ? 1. Left ventricular chamber dimension is normal. ? 2. Left ventricular systolic function is normal, estimated at 65-70%. ? 3. The left ventricular diastolic function is grade III diastolic dysfunction. ? 4. Right ventricular chamber dimension is mildly enlarged. ? 5. Right ventricular systolic function is normal. ? 6. No significant valvular disease. (4) Diastolic dysfunction: Code(s): I51.89 - Other ill-defined heart diseases Status: Acute Assessment and Plan: New onset grade 3 diastolic dysfunction on echocardiogram as above -appreciate cardiology evaluation and recommendation (5) Hypothyroidism (acquired): Code(s): E03.9 - Hypothyroidism, unspecified Status: Acute Assessment and Plan: Continue levothyroxine -TSH within normal limits (6) Hyperlipidemia: Code(s): E78.5 - Hyperlipidemia, unspecified Status: Acute Assessment and Plan: Cholesterol on admission was > 650, LDL was 88, HDL test was not performed - Continue atorvastatin (7) MO (obstructive sleep apnea): Code(s): G47.33 - Obstructive sleep apnea (adult) (pediatric) Status: Acute Assessment and Plan: CPAP at night and while sleeping (8) Morbid (severe) obesity due to excess calories: Code(s): E66.01 - Morbid (severe) obesity due to excess calories Status: Acute Assessment and Plan: Patient will be counseled on dietary habits and exercise (9) Diabetes: Code(s): E11.9 - Type 2 diabetes mellitus without complications Status: Acute Assessment and Plan: Hemoglobin A1c was 9.4 this admission, likely new onset diabetes Will have dietitian and health educator follow the patient -currently on insulin drip, will require treatment for diabetes once insulin drip is off Plan DVT prophylaxis: Lovenox Stress ulcer prophylaxis: Not indicated Nutrition: diabetic and heart healthy diet Code Status: Full code Subjective Date/time seen: 03/29/24 14:31 Interval history: Reports some headache. Intermittent fever. No abdominal pain nausea vomiting. Review of Systems Review
[2024-03-29 16:02] LABS: Glucose Point of Care 102 mg/dl (65-105)
[2024-03-29 17:19] LABS: Glucose Point of Care 126 mg/dl (65-105)
[2024-03-29 18:40] LABS: Glucose Point of Care 122 mg/dl (65-105)
[2024-03-29 18:52] LABS: Triglycerides 763 mg/dL (<150)
[2024-03-29 19:28] LABS: Glucose Point of Care 119 mg/dl (65-105)
[2024-03-29] MEDS: ATORVASTATIN 40 MG TABLET 80 MG PO (19:55)
[2024-03-29] MEDS: ACETAMINOPHEN 325 MG TABLET 650 MG PO (19:57)
[2024-03-29] MEDS: MELATONIN 3 MG TABLET PO (19:57)
[2024-03-29 20:43] LABS: Glucose Point of Care 112 mg/dl (65-105)
[2024-03-29 21:41] LABS: Glucose Point of Care 102 mg/dl (65-105)
[2024-03-29 22:42] LABS: Glucose Point of Care 91 mg/dl (65-105)
[2024-03-29 23:49] LABS: Glucose Point of Care 65 mg/dl (65-105)
[2024-03-29] MEDS: DEXTROSE 50% 25 GM/50 ML SYRINGE IV PUSH (23:56)
[2024-03-30] VITALS (13 sets, daily range): BP systolic 109–129; BP diastolic 61–80; PULSE 88–98; RESP 14–19; TEMP 36.5–37; O2SAT 95–100
[2024-03-30 00:50] LABS: Glucose Point of Care 96 mg/dl (65-105)
[2024-03-30 02:03] LABS: Glucose Point of Care 90 mg/dl (65-105)
[2024-03-30] MEDS: AZITHROMYCIN 500 MG/NS 250 ML 500 MG/250 ML BAG 250 MG IVPB (02:13)
[2024-03-30 03:03] LABS: Glucose Point of Care 88 mg/dl (65-105)
[2024-03-30] MEDS: INSULIN HUMAN REGULAR (*BKC) 100 UNITS in SODIUM CHLORIDE 0.9% IV 99 ML 15 UNITS IV CONT (03:03)
[2024-03-30 04:14] LABS: Glucose Point of Care 78 mg/dl (65-105)
[2024-03-30 04:52] LABS: Glucose Point of Care 69 mg/dl (65-105)
[2024-03-30 05:05] LABS: Basophils Percent Auto 0.4 % (0.2-1.2); Eosinophils Absolute Auto 0.3 K/mm3 (0-0.3); Eosinophils Percent Auto 2.2 % (0-4.4); Hematocrit 38.1 % (42.0-52.0); Hemoglobin 12.4 g/dL (14.0-18.0); Immature Granulocyte Absolute 0.15 K/mm3 (0.00-0.031); Immature Granulocyte Percent A 1.3 % (0-0.5); Lymphocytes Percent Auto 11.5 % (18.3-44.2); Mean Corpuscular HGB Conc 32.5 g/dl (32-36); Mean Platelet Volume 10.2 fl (7.4-10.4); Monocytes Absolute Auto 1.1 K/mm3 (0.1-0.6); Monocytes Percent Auto 10.1 % (2.6-8.5); Neutrophils Absolute Auto 8.4 K/mm3 (1.3-6.7); Neutrophils Percent Auto 74.5 % (45.5-73.1); Platelet Count Result 208 k/mm3 (150-375); Red Blood Count 4.14 M/mm3 (4.6-6.20); Red Cell Distribution Width 14.1 % (11.5-14.5); White Blood Count 11.3 K/mm3 (4.5-10.0)
[2024-03-30 05:12] LABS: Alanine Aminotransferase 70 U/L (6-50); Albumin Level 3.5 g/dL (3.5-5.1); Alkaline Phosphatase 88 U/L (38-126); Anion Gap 7 mmol/L (4-12); Aspartate Amino Transferase 39 U/L (17-59); Bilirubin,Total 0.5 mg/dL (0.2-1.3); Blood Urea Nitrogen 3 mg/dL (9-20); Calcium 8.1 mg/dL (8.4-10.2); Carbon Dioxide 23 mmol/L (22-30); Chloride 106 mmol/L (98-107); Estimated CRCL calculation 158 ml/min; Estimated Glomerular Filt Rate > 60; Glucose 75 mg/dL (65-110); Magnesium 2.1 mg/dL (1.6-2.3); Phosphorus 4.3 mg/dL (2.5-4.5); Potassium 3.5 mmol/L (3.4-5.0); Sodium 136 mmol/L (137-145); Triglycerides 482 mg/dL (<150)
[2024-03-30 05:55] LABS: Glucose Point of Care 69 mg/dl (65-105)
[2024-03-30] MEDS: LEVOTHYROXINE SODIUM 75 MCG TABLET PO (05:55)
[2024-03-30] MEDS: CENTRAL LINE FLUSH 10 ML IV PUSH ×3 (05:55→22:22)
[2024-03-30 06:49] LABS: Glucose Point of Care 76 mg/dl (65-105)
[2024-03-30 08:08] LABS: Glucose Point of Care 109 mg/dl (65-105)
[2024-03-30] MEDS: FENOFIBRATE 160 MG TABLET PO (08:11)
[2024-03-30] MEDS: METOPROLOL TARTRATE 12.5 MG TABLET PO ×2 (08:11→21:45)
[2024-03-30] MEDS: cefTRIAXone 2 GM/NS 100 ML 2 GM/100 ML BAG IVPB ×2 (08:11→21:47)
[2024-03-30] MEDS: NICOTINE (*PBKC) 21 MG PATCH 1 PATCH TRANSDERM (08:11)
[2024-03-30] MEDS: ENOXAPARIN 40 MG/0.4 ML SYRINGE SUB-Q (08:12)
--- NOTE | 2024-03-30 08:15 | WPDINTPN ---
Progress Note: A&P Assessment and Plan (1) Hypertriglyceridemia: Code(s): E78.1 - Pure hyperglyceridemia Status: Acute Assessment and Plan: Patient presented with nonspecific symptoms, chest pain, not feeling well, cough. With his blood was drawn in the ER stated that his lipids were very high so they checked his lipid panel and his high triglycerides were > 2625 his cholesterol was > 650. -patient was started on insulin infusion, adequately fluid-resuscitated the ICU -PICC line was placed on 03/26, and started on Dextrose 20% and increased insulin infusion -discussed with Nephrology, continue insulin for now, if patient's triglycerides do not improve in the 1-2 days, may require plasmapheresis -continue fenofibrate and increase atorvastatin dose -triglycerides 482 this morning, insulin infusion dextrose 20% infusion with discontinued early this morning. 03/25:CT scan of the abdomen and pelvis: IMPRESSION: Moderate pulmonary edema. Hepatosplenomegaly. Hepatic steatosis. Otherwise, no acute abdominopelvic process detected (2) Pneumonia: Code(s): J18.9 - Pneumonia, unspecified organism Status: Acute Assessment and Plan: Bilateral infiltrates on chest x-ray with cough, leukocytosis -continue ceftriaxone and azithromycin for total of 7 days -03/26: Preliminary blood cultures -no growth to date -03/26: Urine culture - no growth Chest x-ray 03/27: Minimal patchy haziness left midlung. Correlate for pneumonia. Right-sided PICC line in place. (3) Pulmonary edema: Qualifiers: Chronicity: acute Qualified Code(s): J81.0 - Acute pulmonary edema Code(s): J81.1 - Chronic pulmonary edema Status: Acute Assessment and Plan: Initial chest x-ray on admission showed pulmonary edema 03/26/2024 Echocardiogram Summary ? 1. Left ventricular chamber dimension is normal. ? 2. Left ventricular systolic function is normal, estimated at 65-70%. ? 3. The left ventricular diastolic function is grade III diastolic dysfunction. ? 4. Right ventricular chamber dimension is mildly enlarged. ? 5. Right ventricular systolic function is normal. ? 6. No significant valvular disease. (4) Diastolic dysfunction: Code(s): I51.89 - Other ill-defined heart diseases Status: Acute Assessment and Plan: New onset grade 3 diastolic dysfunction on echocardiogram as above -appreciate cardiology evaluation and recommendation (5) Hypothyroidism (acquired): Code(s): E03.9 - Hypothyroidism, unspecified Status: Acute Assessment and Plan: Continue levothyroxine -TSH within normal limits (6) Hyperlipidemia: Code(s): E78.5 - Hyperlipidemia, unspecified Status: Acute Assessment and Plan: Cholesterol on admission was > 650, LDL was 88, HDL test was not performed -continue atorvastatin (7) MO (obstructive sleep apnea): Code(s): G47.33 - Obstructive sleep apnea (adult) (pediatric) Status: Acute Assessment and Plan: CPAP at night and while sleeping (8) Morbid (severe) obesity due to excess calories: Code(s): E66.01 - Morbid (severe) obesity due to excess calories Status: Acute Assessment and Plan: Patient has been counseled on dietary habits and exercise by coding educator and dietitian (9) Diabetes: Code(s): E11.9 - Type 2 diabetes mellitus without complications Status: Acute Assessment and Plan: Hemoglobin A1c was 9.4 this admission, likely new onset diabetes Appreciate dietitian and coding educator evaluating the patient -now that patient is off insulin infusion and dextrose 20% -will start sliding scale insulin, Accu-Chek and Lantus Plan DVT prophylaxis: Lovenox Stress ulcer prophylaxis: Not indicated Nutrition: diabetic and heart healthy diet Code Status: Full code Critical Care Time Spent: 31 minutes Patient may transfer out of the ICU Discussed with patient's mot
[2024-03-30] MEDS: ACETAMINOPHEN 325 MG TABLET 650 MG PO (10:44)
[2024-03-30 11:38] LABS: Glucose Point of Care 138 mg/dl (65-105)
[2024-03-30 11:47] LABS: Triglycerides 666 mg/dL (<150)
--- NOTE | 2024-03-30 13:34 | PM.IMPN ---
Progress Note: A&P Assessment and Plan (1) Hypertriglyceridemia: Code(s): E78.1 - Pure hyperglyceridemia Status: Acute Assessment and Plan: Patient presented with nonspecific symptoms, chest pain, not feeling well, cough. With his blood was drawn in the ER stated that his lipids were very high so they checked his lipid panel and his high triglycerides were > 2625 his cholesterol was > 650. -patient was started on insulin infusion, adequately fluid-resuscitated the ICU -PICC line was placed on 03/26, and started on Dextrose 20% and increased insulin infusion -discussed with Nephrology, continue insulin for now, if patient's triglycerides do not improve in the 1-2 days, may require plasmapheresis -continue fenofibrate and atorvastatin Continue insulin infusion and dextrose 20%, triglycerides improving, continue to monitor -will stop insulin infusion once triglycerides are <500 03/25:CT scan of the abdomen and pelvis: IMPRESSION: Moderate pulmonary edema. Hepatosplenomegaly. Hepatic steatosis. Otherwise, no acute abdominopelvic process detected (2) Pneumonia: Code(s): J18.9 - Pneumonia, unspecified organism Status: Acute Assessment and Plan: Bilateral infiltrates on chest x-ray with cough, leukocytosis -continue ceftriaxone and azithromycin -03/26: Preliminary blood cultures -no growth to date -03/26: Urine culture - no growth Chest x-ray 03/27: Minimal patchy haziness left midlung. Correlate for pneumonia. Right-sided PICC line in place. (3) Pulmonary edema: Qualifiers: Chronicity: acute Qualified Code(s): J81.0 - Acute pulmonary edema Code(s): J81.1 - Chronic pulmonary edema Status: Acute Assessment and Plan: Initial chest x-ray on admission showed pulmonary edema 03/26/2024 Echocardiogram Summary ? 1. Left ventricular chamber dimension is normal. ? 2. Left ventricular systolic function is normal, estimated at 65-70%. ? 3. The left ventricular diastolic function is grade III diastolic dysfunction. ? 4. Right ventricular chamber dimension is mildly enlarged. ? 5. Right ventricular systolic function is normal. ? 6. No significant valvular disease. (4) Diastolic dysfunction: Code(s): I51.89 - Other ill-defined heart diseases Status: Acute Assessment and Plan: New onset grade 3 diastolic dysfunction on echocardiogram as above -appreciate cardiology evaluation and recommendation (5) Hypothyroidism (acquired): Code(s): E03.9 - Hypothyroidism, unspecified Status: Acute Assessment and Plan: Continue levothyroxine -TSH within normal limits (6) Hyperlipidemia: Code(s): E78.5 - Hyperlipidemia, unspecified Status: Acute Assessment and Plan: Cholesterol on admission was > 650, LDL was 88, HDL test was not performed - Continue atorvastatin and fenofibrate (7) MO (obstructive sleep apnea): Code(s): G47.33 - Obstructive sleep apnea (adult) (pediatric) Status: Acute Assessment and Plan: CPAP at night and while sleeping (8) Morbid (severe) obesity due to excess calories: Code(s): E66.01 - Morbid (severe) obesity due to excess calories Status: Acute Assessment and Plan: Patient will be counseled on dietary habits and exercise (9) Diabetes: Code(s): E11.9 - Type 2 diabetes mellitus without complications Status: Acute Assessment and Plan: Hemoglobin A1c was 9.4 this admission, likely new onset diabetes Will have dietitian and clinical program consultant follow the patient -currently on insulin drip, w Switched to Lantus and NovoLog Plan DVT prophylaxis: Lovenox Stress ulcer prophylaxis: Not indicated Nutrition: diabetic and heart healthy diet Code Status: Full code Subjective Date/time seen: 03/30/24 13:34 Interval history: Overnight events. Vital stable. Triglyceride is low and insulin drip has been discontinued. Transferring out of the
[2024-03-30] MEDS: ACETAMINOPHEN/ASPIRIN/CAFFEINE 250-250-65 MG TABLET 1 TABLET PO ×2 (16:44→23:02)
[2024-03-30 17:14] LABS: Glucose Point of Care 171 mg/dl (65-105)
[2024-03-30 20:45] LABS: Glucose Point of Care 225 mg/dl (65-105)
[2024-03-30] MEDS: ATORVASTATIN 40 MG TABLET 80 MG PO (21:42)
[2024-03-30] MEDS: MELATONIN 3 MG TABLET PO (21:47)
[2024-03-30] MEDS: INSULIN GLARGINE (*BKC) 100 UNITS/ML 15 UNITS SUB-Q (21:50)
[2024-03-30] MEDS: INSULIN ASPART (*BKC) 100 UNITS/ML SUB-Q (21:52)
[2024-03-31] MEDS: AZITHROMYCIN 500 MG/NS 250 ML 500 MG/250 ML BAG 250 MG IVPB (01:29)
[2024-03-31] MEDS: CENTRAL LINE FLUSH 10 ML IV PUSH ×3 (05:51→21:17)
[2024-03-31] MEDS: LEVOTHYROXINE SODIUM 75 MCG TABLET PO (05:52)
[2024-03-31 05:58] LABS: Basophils Absolute Auto 0.1 K/mm3 (0.0-0.1); Basophils Percent Auto 0.6 % (0.2-1.2); Eosinophils Absolute Auto 0.3 K/mm3 (0-0.3); Eosinophils Percent Auto 3.3 % (0-4.4); Hematocrit 37.6 % (42.0-52.0); Hemoglobin 12.1 g/dL (14.0-18.0); Immature Granulocyte Absolute 0.24 K/mm3 (0.00-0.031); Immature Granulocyte Percent A 2.4 % (0-0.5); Lymphocytes Absolute Auto 1.31 K/mm3 (0.9-3.2); Lymphocytes Percent Auto 13.1 % (18.3-44.2); Mean Corpuscular HGB Conc 32.2 g/dl (32-36); Mean Corpuscular Volume 93.1 fl (80-100); Mean Platelet Volume 10.2 fl (7.4-10.4); Monocytes Absolute Auto 1.2 K/mm3 (0.1-0.6); Monocytes Percent Auto 11.6 % (2.6-8.5); Neutrophils Absolute Auto 6.9 K/mm3 (1.3-6.7); Platelet Count Result 203 k/mm3 (150-375); Red Blood Count 4.04 M/mm3 (4.6-6.20); Red Cell Distribution Width 13.8 % (11.5-14.5)
[2024-03-31 06:22] LABS: Alanine Aminotransferase 62 U/L (6-50); Albumin Level 3.6 g/dL (3.5-5.1); Alkaline Phosphatase 99 U/L (38-126); Anion Gap 5 mmol/L (4-12); Aspartate Amino Transferase 32 U/L (17-59); Bilirubin,Total 0.6 mg/dL (0.2-1.3); Blood Urea Nitrogen 12 mg/dL (9-20); Calcium 8.7 mg/dL (8.4-10.2); Carbon Dioxide 26 mmol/L (22-30); Chloride 102 mmol/L (98-107); Estimated CRCL calculation 158 ml/min; Estimated Glomerular Filt Rate > 60; Glucose 149 mg/dL (65-110); Magnesium 1.9 mg/dL (1.6-2.3); Phosphorus 4.1 mg/dL (2.5-4.5); Potassium 4.2 mmol/L (3.4-5.0); Sodium 133 mmol/L (137-145)
[2024-03-31 07:08] VITALS: BP 119/68; PULSE 88; RESP 18; TEMP 36.9; O2SAT 95
[2024-03-31 08:23] LABS: Glucose Point of Care 142 mg/dl (65-105)
[2024-03-31 08:45] LABS: Triglycerides 486 mg/dL (<150)
[2024-03-31 08:51] VITALS: PULSE 88
[2024-03-31] MEDS: METOPROLOL TARTRATE 12.5 MG TABLET PO ×2 (08:51→20:55)
[2024-03-31] MEDS: FENOFIBRATE 160 MG TABLET PO (08:51)
[2024-03-31] MEDS: ENOXAPARIN 40 MG/0.4 ML SYRINGE SUB-Q (08:51)
[2024-03-31] MEDS: cefTRIAXone 2 GM/NS 100 ML 2 GM/100 ML BAG IVPB ×2 (08:51→21:04)
[2024-03-31] MEDS: NICOTINE (*PBKC) 21 MG PATCH 1 PATCH TRANSDERM (08:52)
[2024-03-31] MEDS: ACETAMINOPHEN 325 MG TABLET 650 MG PO (08:55)
[2024-03-31 12:10] LABS: Glucose Point of Care 163 mg/dl (65-105)
[2024-03-31] MEDS: VANCOMYCIN 1,250 MG/NS 250 ML 1,250 MG/250 ML BAG 166.67 MG IVPB ×2 (12:16→13:50)
--- NOTE | 2024-03-31 12:47 | PM.CNGS ---
Assessment and Plan Assessment and plan (1) Cellulitis and abscess of buttock: Code(s): L02.31 - Cutaneous abscess of buttock; L03.317 - Cellulitis of buttock Status: Acute Assessment and Plan: mod drainage and significantly tender, will take to OR tomorrow for complex incision and drainage under anesthesia, cont IV abx, local wound care for now History of Present Illness Consult details Consult date: 03/31/24 Reason for consult: wound care Requesting physician: Tio Eduardo MD Narrative: Pt is a 39 y/o M c multiple med issues presenting c pure triglyceridemia requiring insulin gtt and ICU care. Pt also c noted pneumonia. Pt has since stabilized and been transferred to floor. Pt reports he developed significant R sided buttock pain over last 1-2 days. Workup, including CT, significant for large perirectal abscess. Review of Systems Review of Systems: All systems reviewed & are unremarkable except as noted in HPI and below PMFSH Past Medical History Medical History BMI 35.0-35.9,adult Chest pain Compensated hypothyroidism Hyperlipidemia Obesity [place] (obstructive sleep apnea) Stress at work Tobacco abuse Surgical History Surgical History H/O excision of mass Excision of 4cm back mass on 08/16/22 S/P appendectomy Family History Family History Mother Patient's mother is in good health Asthma Father Family history of arthritis Glioblastoma Sibling Patient's brother is in good health Social History Social History Social History: Smoking packs per day: 1 Smoking cigarettes per day: 20.0 Years smoked: 22 Smoking pack-years: 22.00 Smoking status: Current every day smoker Tobacco type: cigarettes and e-cigarettes/vaping Second hand tobacco smoke exposure: Yes Smoking end date: 02/03/21 Additional smoking assessment comments: Pt is vaping now. Alcohol intake: never Alcohol use details: Occasionally Substance use: never Substance use type: does not use Do You Feel Safe in your Home?: Yes Lack of Transportation: No Lack of Food: Never True Current Housing: I Have Housing Concerned About Future Housing: No Difficulty Paying Gas/Electric Bills: No Difficulty Paying for Meds: No Currently Unemployed: No Education: High School Diploma/GED Difficulty w/ Childcare or Family Care: No Living arrangements: with family Occupation/Education: occupation Gender identity (if verbalized by the patient): Male Sexual Orientation (if Verbalized by the Patient): Straight or Heterosexual Spiritual care concerns: No Meds Home Medications and Allergies Home Medications Medication Instructions Recorded Confirmed Type levothyroxine 100 mcg tablet 75 mcg PO DAILY 03/26/24 03/26/24 History Allergies Allergy/AdvReac Type Severity Reaction Status Date / Time Penicillins Allergy Mild Rash Verified 03/26/24 08:58 Vital Signs Vital Signs - 24 hr 03/30/24 14:07 03/30/24 14:40 03/30/24 20:54 Temperature 36.9 C 36.5 C Pulse Rate 94 91 Respiratory Rate 18 14 Blood Pressure 111/69 114/68 Pulse Oximetry 99 100 Oxygen Delivery Room Air 03/30/24 21:45 03/30/24 20:00 03/31/24 07:08 Temperature 36.9 C Pulse Rate 96 88 Respiratory Rate 18 Blood Pressure 119/68 Pulse Oximetry 95 Oxygen Delivery Room Air 03/31/24 08:51 03/31/24 08:50 Temperature Pulse Rate 88 Respiratory Rate Blood Pressure Pulse Oximetry Oxygen Delivery Room Air Exam Const: General: cooperative, comfortable, no acute distress and obese HENMT: Head: normal to inspection, normocephalic and atraumatic Eyes: General: appearance normal, both eyes and all related structures Neck: Neck: normal visual inspec
[2024-03-31 14:08] VITALS: BP 128/82; PULSE 82; RESP 16; TEMP 36.7; O2SAT 98
--- NOTE | 2024-03-31 14:37 | P.PNIM_ITS ---
Progress Note: A&P Assessment and Plan (1) Hypertriglyceridemia: Code(s): E78.1 - Pure hyperglyceridemia Status: Acute Assessment and Plan: Patient presented with nonspecific symptoms, chest pain, not feeling well, cough. With his blood was drawn in the ER stated that his lipids were very high so they checked his lipid panel and his high triglycerides were > 2625 his cholesterol was > 650. -patient was started on insulin infusion, adequately fluid-resuscitated the ICU -PICC line was placed on 03/26, and started on Dextrose 20% and increased insulin infusion -discussed with Nephrology, continue insulin for now, if patient's triglycerides do not improve in the 1-2 days, may require plasmapheresis -continue fenofibrate and atorvastatin Continue insulin infusion and dextrose 20%, triglycerides improving, continue to monitor - insulin infusion discontinued 03/30/2024 Once triglyceride were lower than 500 03/25:CT scan of the abdomen and pelvis: IMPRESSION: Moderate pulmonary edema. Hepatosplenomegaly. Hepatic steatosis. Otherwise, no acute abdominopelvic process detected continue fenofibrate and atorvastatin as ordered (2) Pneumonia: Code(s): J18.9 - Pneumonia, unspecified organism Status: Acute Assessment and Plan: Bilateral infiltrates on chest x-ray with cough, leukocytosis -continue ceftriaxone and azithromycin -03/26: Preliminary blood cultures -no growth to date -03/26: Urine culture - no growth Chest x-ray 03/27: Minimal patchy haziness left midlung. Correlate for pneumonia. Right-sided PICC line in place. Remains on ceftriaxone. Will discontinue azithromycin completed course. (3) Pulmonary edema: Qualifiers: Chronicity: acute Qualified Code(s): J81.0 - Acute pulmonary edema Code(s): J81.1 - Chronic pulmonary edema Status: Acute Assessment and Plan: Initial chest x-ray on admission showed pulmonary edema 03/26/2024 Echocardiogram Summary ? 1. Left ventricular chamber dimension is normal. ? 2. Left ventricular systolic function is normal, estimated at 65-70%. ? 3. The left ventricular diastolic function is grade III diastolic dysfunction. ? 4. Right ventricular chamber dimension is mildly enlarged. ? 5. Right ventricular systolic function is normal. ? 6. No significant valvular disease. (4) Diastolic dysfunction: Code(s): I51.89 - Other ill-defined heart diseases Status: Acute Assessment and Plan: New onset grade 3 diastolic dysfunction on echocardiogram as above -appreciate cardiology evaluation and recommendation (5) Hypothyroidism (acquired): Code(s): E03.9 - Hypothyroidism, unspecified Status: Acute Assessment and Plan: Continue levothyroxine -TSH within normal limits (6) Hyperlipidemia: Code(s): E78.5 - Hyperlipidemia, unspecified Status: Acute Assessment and Plan: Cholesterol on admission was > 650, LDL was 88, HDL test was not performed - Continue atorvastatin and fenofibrate (7) [place] (obstructive sleep apnea): Code(s): G47.33 - Obstructive sleep apnea (adult) (pediatric) Status: Acute Assessment and Plan: CPAP at night and while sleeping (8) Morbid (severe) obesity due to excess calories: Code(s): E66.01 - Morbid (severe) obesity due to excess calories Status: Acute Assessment and Plan: Patient will be counseled on dietary habits and exercise (9) Diabetes: Code(s): E11.9 - Type 2 diabetes mellitus without complications Status: Acute Assessment and Plan:
[2024-03-31 16:39] LABS: Glucose Point of Care 178 mg/dl (65-105)
[2024-03-31] MEDS: ACETAMINOPHEN/ASPIRIN/CAFFEINE 250-250-65 MG TABLET 1 TABLET PO (20:53)
[2024-03-31] MEDS: ATORVASTATIN 40 MG TABLET 80 MG PO (20:54)
[2024-03-31 20:55] VITALS: PULSE 90
[2024-03-31] MEDS: INSULIN GLARGINE (*BKC) 100 UNITS/ML 15 UNITS SUB-Q (20:57)
[2024-03-31] MEDS: MELATONIN 3 MG TABLET PO (21:04)
[2024-03-31] MEDS: INSULIN ASPART (*BKC) 100 UNITS/ML SUB-Q (21:13)
[2024-03-31 21:16] VITALS: BP 131/75; PULSE 88; RESP 18; TEMP 36.7; O2SAT 98
[2024-03-31 22:50] VITALS: PULSE 71; RESP 17; O2SAT 96
[2024-03-31] MEDS: VANCOMYCIN 1,500 MG/NS 500 ML 1,500 MG/500 ML BAG 250 MG IVPB (23:18)
[2024-04-01] VITALS (17 sets, daily range): BP systolic 84–123; BP diastolic 46–82; PULSE 68–91; RESP 12–20; TEMP 36.1–36.8; O2SAT 95–100
[2024-04-01 03:50] LABS: Glucose Point of Care 209 mg/dl (65-105)
[2024-04-01] MEDS: CENTRAL LINE FLUSH 10 ML IV PUSH ×4 (05:56→21:34)
[2024-04-01 06:30] LABS: Basophils Absolute Auto 0.1 K/mm3 (0.0-0.1); Basophils Percent Auto 0.9 % (0.2-1.2); Eosinophils Absolute Auto 0.4 K/mm3 (0-0.3); Hematocrit 40.7 % (42.0-52.0); Hemoglobin 12.9 g/dL (14.0-18.0); Immature Granulocyte Absolute 0.57 K/mm3 (0.00-0.031); Immature Granulocyte Percent A 6.4 % (0-0.5); Lymphocytes Absolute Auto 1.73 K/mm3 (0.9-3.2); Lymphocytes Percent Auto 19.5 % (18.3-44.2); Mean Corpuscular HGB Conc 31.7 g/dl (32-36); Mean Corpuscular Hemoglobin 29.6 pg (26-34); Mean Corpuscular Volume 93.3 fl (80-100); Monocytes Absolute Auto 0.9 K/mm3 (0.1-0.6); Monocytes Percent Auto 10.2 % (2.6-8.5); Neutrophils Absolute Auto 5.2 K/mm3 (1.3-6.7); Platelet Count Result 214 k/mm3 (150-375); Red Blood Count 4.36 M/mm3 (4.6-6.20); Red Cell Distribution Width 13.4 % (11.5-14.5); White Blood Count 8.9 K/mm3 (4.5-10.0)
[2024-04-01 06:37] LABS: Alanine Aminotransferase 56 U/L (6-50); Albumin Level 3.7 g/dL (3.5-5.1); Alkaline Phosphatase 98 U/L (38-126); Anion Gap 5 mmol/L (4-12); Aspartate Amino Transferase 34 U/L (17-59); Bilirubin,Total 0.6 mg/dL (0.2-1.3); Blood Urea Nitrogen 13 mg/dL (9-20); Calcium 8.9 mg/dL (8.4-10.2); Carbon Dioxide 27 mmol/L (22-30); Chloride 105 mmol/L (98-107); Estimated CRCL calculation 152 ml/min; Estimated Glomerular Filt Rate > 60; Glucose 138 mg/dL (65-110); Magnesium 2.1 mg/dL (1.6-2.3); Potassium 4.2 mmol/L (3.4-5.0); Sodium 137 mmol/L (137-145); Triglycerides 486 mg/dL (<150)
[2024-04-01 08:08] LABS: Glucose Point of Care 138 mg/dl (65-105)
[2024-04-01] MEDS: ENOXAPARIN 40 MG/0.4 ML SYRINGE SUB-Q (08:33)
[2024-04-01] MEDS: cefTRIAXone 2 GM/NS 100 ML 2 GM/100 ML BAG IVPB ×2 (08:33→21:22)
[2024-04-01] MEDS: FENOFIBRATE 160 MG TABLET PO (08:33)
[2024-04-01] MEDS: METOPROLOL TARTRATE 12.5 MG TABLET PO ×2 (08:34→21:10)
[2024-04-01] MEDS: VANCOMYCIN 1,500 MG/NS 500 ML 1,500 MG/500 ML BAG 250 MG IVPB (11:47)
[2024-04-01 11:52] LABS: Glucose Point of Care 115 mg/dl (65-105)
--- NOTE | 2024-04-01 12:11 | PC.NURSE ---
To OR via bed, double lumen PICC R arm. Vancomycin infusing. Report given to NANCY Mckinley.
[2024-04-01] MEDS: LACTATED RINGERS 1,000 ML 30 ML IV CONT (12:30)
--- NOTE | 2024-04-01 13:28 | PM.IMPN ---
Progress Note: A&P Assessment and Plan (1) Hypertriglyceridemia: Code(s): E78.1 - Pure hyperglyceridemia Status: Acute Assessment and Plan: Patient presented with nonspecific symptoms, chest pain, not feeling well, cough. With his blood was drawn in the ER stated that his lipids were very high so they checked his lipid panel and his high triglycerides were > 2625 his cholesterol was > 650. -patient was started on insulin infusion, adequately fluid-resuscitated the ICU -PICC line was placed on 03/26, and started on Dextrose 20% and increased insulin infusion -discussed with Nephrology, continue insulin for now, if patient's triglycerides do not improve in the 1-2 days, may require plasmapheresis -continue fenofibrate and atorvastatin Continue insulin infusion and dextrose 20%, triglycerides improving, continue to monitor - insulin infusion discontinued 03/30/2024 Once triglyceride were lower than 500 03/25:CT scan of the abdomen and pelvis: IMPRESSION: Moderate pulmonary edema. Hepatosplenomegaly. Hepatic steatosis. Otherwise, no acute abdominopelvic process detected continue fenofibrate and atorvastatin as ordered (2) Pneumonia: Code(s): J18.9 - Pneumonia, unspecified organism Status: Acute Assessment and Plan: Bilateral infiltrates on chest x-ray with cough, leukocytosis -continue ceftriaxone and azithromycin -03/26: Preliminary blood cultures -no growth to date -03/26: Urine culture - no growth Chest x-ray 03/27: Minimal patchy haziness left midlung. Correlate for pneumonia. Right-sided PICC line in place. Remains on ceftriaxone. Will discontinue azithromycin completed course. (3) Pulmonary edema: Qualifiers: Chronicity: acute Qualified Code(s): J81.0 - Acute pulmonary edema Code(s): J81.1 - Chronic pulmonary edema Status: Acute Assessment and Plan: Initial chest x-ray on admission showed pulmonary edema 03/26/2024 Echocardiogram Summary ? 1. Left ventricular chamber dimension is normal. ? 2. Left ventricular systolic function is normal, estimated at 65-70%. ? 3. The left ventricular diastolic function is grade III diastolic dysfunction. ? 4. Right ventricular chamber dimension is mildly enlarged. ? 5. Right ventricular systolic function is normal. ? 6. No significant valvular disease. (4) Diastolic dysfunction: Code(s): I51.89 - Other ill-defined heart diseases Status: Acute Assessment and Plan: New onset grade 3 diastolic dysfunction on echocardiogram as above -appreciate cardiology evaluation and recommendation (5) Hypothyroidism (acquired): Code(s): E03.9 - Hypothyroidism, unspecified Status: Acute Assessment and Plan: Continue levothyroxine -TSH within normal limits (6) Hyperlipidemia: Code(s): E78.5 - Hyperlipidemia, unspecified Status: Acute Assessment and Plan: Cholesterol on admission was > 650, LDL was 88, HDL test was not performed - Continue atorvastatin and fenofibrate (7) [place] (obstructive sleep apnea): Code(s): G47.33 - Obstructive sleep apnea (adult) (pediatric) Status: Acute Assessment and Plan: CPAP at night and while sleeping (8) Morbid (severe) obesity due to excess calories: Code(s): E66.01 - Morbid (severe) obesity due to excess calories Status: Acute Assessment and Plan: Patient will be counseled on dietary habits and exercise (9) Diabetes: Code(s): E11.9 - Type 2 diabetes mellitus without complications Status: Acute Assessment and Plan: Hemoglobin A1c was 9.4 this admission, likely new onset diabetes Will have dietitian and elementary educator follow the patient -currently on insulin drip, w Switched to Lantus and NovoLog clinical unit educator consultation (10) Cellulitis and abscess of buttock: Code(s): L02.31 - Cutaneous abscess of buttock; L03.317 - Cellulitis of buttock Status: Acute A
--- NOTE | 2024-04-01 13:29 | P.PNAN_ITS ---
Anes - Initial Pre Proc Eval Procedure: Operation Date: 04/01/24 13:30 Proposed Procedures p Complex Incision and Drainage Priti-Rectal Abscess - Marylu Marte MD Date/Time: 04/01/24 13:29 Surgeon: Sancho Roberts MD Pre Op Diagnosis: PNA Patient Data Age: 39 Gender: M Height: 1.73 m Weight: 115.1 kg Last Vital Signs Temp 97.0 F L 04/01/24 12:20 Pulse 76 04/01/24 12:20 Resp 18 04/01/24 12:20 BP 123/82 04/01/24 12:20 Pulse Ox 95 04/01/24 12:20 O2 Del Method Room Air 04/01/24 12:20 O2 Flow Rate 2 03/30/24 03:50 Allergies Allergy/AdvReac Type Severity Reaction Status Date / Time Penicillins Allergy Mild Rash Verified 04/01/24 13:15 Home Medications Medication Instructions Recorded Confirmed Type levothyroxine 100 mcg tablet 75 mcg PO DAILY 03/26/24 03/26/24 History Laboratory Tests 03/31/24 03/31/24 04/01/24 16:34 19:31 06:22 WBC 8.9 K/mm3 (4.5-10.0) RBC 4.36 L M/mm3 (4.6-6.20) Hgb 12.9 L g/dL (14.0-18.0) Hct 40.7 L % (42.0-52.0) MCV 93.3 fl (80-100) MCH 29.6 pg (26-34) MCHC 31.7 L g/dl (32-36) RDW 13.4 % (11.5-14.5) Plt Count 214 k/mm3 (150-375) MPV 10.0 fl (7.4-10.4) Immature Gran % (Auto) 6.4 H % (0-0.5) Neut % (Auto) 59.0 % (45.5-73.1) Lymph % (Auto) 19.5 % (18.3-44.2) [place] % (Auto) 10.2 H % (2.6-8.5) Eos % (Auto) 4.0 % (0-4.4) Baso % (Auto) 0.9 % (0.2-1.2) Lymph # (Auto) 1.73 K/mm3 (0.9-3.2) [place] # (Auto) 0.9 H K/mm3 (0.1-0.6) Eos # (Auto) 0.4 H K/mm3 (0-0.3) Baso # (Auto) 0.1 K/mm3 (0.0-0.1) Abs Immat Gran (auto) 0.57 H K/mm3 (0.00-0.031) Absolute Neuts (auto) 5.2 K/mm3 (1.3-6.7) Absolute Nucleated RBC 0.000 K/mm3 (0.0-0.012) Nucleated RBC % 0.0 % (0.0-0.2) Sodium 137 mmol/L (137-145) Potassium 4.2 mmol/L (3.4-5.0) Chloride 105 mmol/L (98-107) Carbon Dioxide 27 mmol/L (22-30) Anion Gap 5 mmol/L (4-12) BUN 13 mg/dL (9-20) Creatinine 0.70 mg/dL (0.7-1.3) Estim Creat Clear Calc 152 ml/min Estimated GFR > 60 (59 - ) Glucose 138 H mg/dL (65-110) POC Capillary Glucose 178 H mg/dl 209 H mg/dl (65-105) (65-105) Calcium 8.9 mg/dL (8.4-10.2) Magnesium 2.1 mg/dL (1.6-2.3) Total Bilirubin 0.6 mg/dL (0.2-1.3) AST 34 U/L (17-59) ALT 56 H U/L (6-50)
--- NOTE | 2024-04-01 13:31 | WPDANESEPPF ---
Anes - Initial Pre Proc Eval Procedure: Operation Date: 04/01/24 13:30 Proposed Procedures p Complex Incision and Drainage Priti-Rectal Abscess - Marylu Marte MD Date/Time: 04/01/24 13:31 Surgeon: Sancho Roberts MD Pre Op Diagnosis: PNA Patient Data Age: 39 Gender: M Height: 1.73 m Weight: 115.1 kg Last Vital Signs Temp 97.0 F L 04/01/24 12:20 Pulse 76 04/01/24 12:20 Resp 18 04/01/24 12:20 BP 123/82 04/01/24 12:20 Pulse Ox 95 04/01/24 12:20 O2 Del Method Room Air 04/01/24 12:20 O2 Flow Rate 2 03/30/24 03:50 Allergies Allergy/AdvReac Type Severity Reaction Status Date / Time Penicillins Allergy Mild Rash Verified 04/01/24 13:15 Home Medications Medication Instructions Recorded Confirmed Type levothyroxine 100 mcg tablet 75 mcg PO DAILY 03/26/24 03/26/24 History Laboratory Tests 03/31/24 03/31/24 04/01/24 16:34 19:31 06:22 WBC 8.9 K/mm3 (4.5-10.0) RBC 4.36 L M/mm3 (4.6-6.20) Hgb 12.9 L g/dL (14.0-18.0) Hct 40.7 L % (42.0-52.0) MCV 93.3 fl (80-100) MCH 29.6 pg (26-34) MCHC 31.7 L g/dl (32-36) RDW 13.4 % (11.5-14.5) Plt Count 214 k/mm3 (150-375) MPV 10.0 fl (7.4-10.4) Immature Gran % (Auto) 6.4 H % (0-0.5) Neut % (Auto) 59.0 % (45.5-73.1) Lymph % (Auto) 19.5 % (18.3-44.2) [place] % (Auto) 10.2 H % (2.6-8.5) Eos % (Auto) 4.0 % (0-4.4) Baso % (Auto) 0.9 % (0.2-1.2) Lymph # (Auto) 1.73 K/mm3 (0.9-3.2) [place] # (Auto) 0.9 H K/mm3 (0.1-0.6) Eos # (Auto) 0.4 H K/mm3 (0-0.3) Baso # (Auto) 0.1 K/mm3 (0.0-0.1) Abs Immat Gran (auto) 0.57 H K/mm3 (0.00-0.031) Absolute Neuts (auto) 5.2 K/mm3 (1.3-6.7) Absolute Nucleated RBC 0.000 K/mm3 (0.0-0.012) Nucleated RBC % 0.0 % (0.0-0.2) Sodium 137 mmol/L (137-145) Potassium 4.2 mmol/L (3.4-5.0) Chloride 105 mmol/L (98-107) Carbon Dioxide 27 mmol/L (22-30) Anion Gap 5 mmol/L (4-12) BUN 13 mg/dL (9-20) Creatinine 0.70 mg/dL (0.7-1.3) Estim Creat Clear Calc 152 ml/min Estimated GFR > 60 (59 - ) Glucose 138 H mg/dL (65-110) POC Capillary Glucose 178 H mg/dl 209 H mg/dl (65-105) (65-105) Calcium 8.9 mg/dL (8.4-10.2) Magnesium 2.1 mg/dL (1.6-2.3) Total Bilirubin 0.6 mg/dL (0.2-1.3) AST 34 U/L (17-59) ALT 56 H U/L (6-50) Alkaline Phosphatase 98 U/L (38-126) Total Protein 7.0 g/dL (6.3-8.2) Albumin 3.7 g/dL (3.5-5.1) Triglycerides 486 H mg/dL (<150) 04/01/24 04/01/24 08:03 11:46 WBC RBC Hgb Hct MCV MCH MCHC RDW Plt Count MPV Immature Gran % (Auto) Neut % (Auto) Lymph % (Auto) [place] % (Auto) Eos % (Auto) Baso % (Auto) Lymph # (Auto) [place] # (Auto) Eos # (Auto) Baso # (Auto) Abs Immat Gran (auto) Absolute Neuts (auto) Absolute Nucleated RBC Nucleated RBC % Sodium Potassium Chloride Carbon Dioxide Anion Gap BUN Creatinine Estim Creat Clear Calc Estimated GFR Glucose POC Capillary Glucose 138 H mg/dl 115 H mg/dl (65-105) (65-105) Calcium Magnesium Total Bilirubin AST ALT Alkaline Phosphatase Total Protein Albumin Triglycerides Patient hx anesthesia problems: none Family hx anesthesia problems: none Results Rev
--- NOTE | 2024-04-01 13:46 | WPDHPUPDATE1 ---
History and Physical Update Update Date/Time: 04/01/24 13:46 History and Physical has been reviewed, including an updated exam of the patient. There are NO changes in the patient's condition. Risks, benefits, and alternatives have been discussed and questions answered. Patient agrees to proceed with procedure.
[2024-04-01] MEDS: BUPIVACAINE/EPINEPHRINE 0.5% 10 ML VIAL 20 ML INFILTRATE (14:05)
--- NOTE | 2024-04-01 15:03 | P.OP_ITS ---
Procedure Note - Detailed Date of Procedure 04/01/24 Pre-op Diagnosis Right perirectal abscess Post-op Diagnosis Same Procedure Performed complex incision and drainage right perirectal abscess measuring 12 x 5 cm Surgeon Marylu Marte MD Anesthesia General and Local Indications 39-year-old with multiple medical issues with large right perirectal abscess Findings right perirectal abscess measuring 12 x 5 cm Description of Procedure The patient was taken the operating room and placed in the lateral position. After adequate induction of general anesthesia, the patient was prepped and draped in the normal sterile fashion. A time-out was then done to verify the patient's identity, as well as the procedure being performed. I began by identifying the abscess in the right perirectal area. There was already a punctate opening here draining purulent fluid. I extended the opening to allow further drainage. Once opened, it was noted the cavity extended superior approximately 7 additional cm. The width of the wound was approximately 5 cm. The area that was opened was 5 cm. The total measurements of the abscess cavity were 12 x 5 cm. This was all noted to be contained within the dermis and subcut aneous tissue. This did not extend into the underlying muscle. I used a hemostat to bluntly dissect around the cavity and break further loculations. All purulent and bloody fluid was drained from the cavity. Then copiously irrigated the cavity. The cavity was then packed with half-inch iodoform. Sterile dressing was then placed. The patient tolerated the procedure well was extubated postoperatively. He will be transferred to the recovery stable condition. Estimated Blood Loss 20 Drains No Packing Yes Pathology None sent Complications No immediate complications Condition Stable Disposition PACU [facility] Billing Surgery - Charge Forward: Surgery Billing
--- NOTE | 2024-04-01 16:10 | PC.NURSE ---
Returned from OR via bed. Report received from NANCY Quick. No patient complaints at this time.
[2024-04-01 16:45] LABS: Glucose Point of Care 104 mg/dl (65-105)
[2024-04-01 16:47] LABS: Glucose Point of Care 107 mg/dl (65-105)
[2024-04-01 19:52] LABS: Glucose Point of Care 185 mg/dl (65-105)
[2024-04-01] MEDS: ACETAMINOPHEN/ASPIRIN/CAFFEINE 250-250-65 MG TABLET 1 TABLET PO (21:07)
[2024-04-01] MEDS: ATORVASTATIN 40 MG TABLET 80 MG PO (21:10)
[2024-04-01] MEDS: MELATONIN 3 MG TABLET PO (21:10)
[2024-04-01] MEDS: INSULIN GLARGINE (*BKC) 100 UNITS/ML 15 UNITS SUB-Q (21:22)
[2024-04-02] VITALS (9 sets, daily range): BP systolic 127–143; BP diastolic 69–82; PULSE 64–81; RESP 10–20; TEMP 35.9–36.6; O2SAT 90–100
[2024-04-02 01:30] LABS: Vancomycin Trough 7.6 ug/mL (10.0-20.0)
[2024-04-02] MEDS: VANCOMYCIN 1,750 MG/NS 500 ML 1,750 MG/500 ML BAG 250 MG IVPB ×2 (02:15→10:55)
[2024-04-02] MEDS: LEVOTHYROXINE SODIUM 75 MCG TABLET PO (05:37)
[2024-04-02] MEDS: CENTRAL LINE FLUSH 10 ML IV PUSH ×2 (05:39→20:34)
[2024-04-02 06:47] LABS: Hematocrit 41.1 % (42.0-52.0); Mean Corpuscular HGB Conc 31.6 g/dl (32-36); Mean Corpuscular Hemoglobin 29.5 pg (26-34); Mean Corpuscular Volume 93.4 fl (80-100); Mean Platelet Volume 9.9 fl (7.4-10.4); Platelet Count Result 298 k/mm3 (150-375); Red Cell Distribution Width 13.2 % (11.5-14.5); White Blood Count 9.4 K/mm3 (4.5-10.0)
[2024-04-02 06:58] LABS: Alanine Aminotransferase 67 U/L (6-50); Albumin Level 3.6 g/dL (3.5-5.1); Alkaline Phosphatase 94 U/L (38-126); Anion Gap 4 mmol/L (4-12); Aspartate Amino Transferase 51 U/L (17-59); Bilirubin,Total 0.6 mg/dL (0.2-1.3); Blood Urea Nitrogen 12 mg/dL (9-20); Calcium 8.5 mg/dL (8.4-10.2); Carbon Dioxide 29 mmol/L (22-30); Chloride 104 mmol/L (98-107); Estimated CRCL calculation 135 ml/min; Estimated Glomerular Filt Rate > 60; Glucose 129 mg/dL (65-110); Magnesium 2.2 mg/dL (1.6-2.3); Potassium 4.1 mmol/L (3.4-5.0); Sodium 137 mmol/L (137-145)
[2024-04-02 07:13] LABS: Band Neutrophils Percent 4 % (0-6); Basophils Absolute Manual 0.09 K/mm3 (0.0-0.1); Basophils Percent Manual 1 % (0-1); Eosinophils Absolute Manual 0.28 K/mm3 (0.02-0.50); Eosinophils Percent Manual 3 % (0-4); Lymphocytes Percent Manual 16 % (18-44); Monocytes Absolute Manual 0.65 K/mm3 (0.1-0.90); Monocytes Percent Manual 7 % (3-9); Neutrophils Absolute Manual 6.86 K/mm3 (1.3-6.7); Neutrophils Percent Manual 69 % (46-73); Platelet Estimate Adequate (Adequate); Schistocytes None Seen
[2024-04-02 07:14] LABS: Anisocytosis 1+
[2024-04-02 08:01] LABS: Glucose Point of Care 122 mg/dl (65-105)
--- NOTE | 2024-04-02 08:45 | WPDANESPN ---
Anes - Prog Note Post-Op Date/Time: 04/02/24 08:45 Vital Signs: Last Vital Signs Temp 35.9 C L 04/02/24 01:18 Pulse 68 04/02/24 01:18 Resp 12 04/02/24 05:42 BP 129/71 04/02/24 01:18 Pulse Ox 98 04/02/24 05:42 O2 Del Method Autopap 04/02/24 05:42 O2 Flow Rate 8 04/01/24 15:25 Pain Score (VAS): 3-4; uncomfortable but ok he states, hurts more when getting cleaned up. I/O: Intake & Output 04/01/24 04/02/24 04/02/24 23:59 07:59 15:59 Intake Total 1010 Balance 1010 Laboratory Tests 04/02/24 06:36 04/02/24 06:36 04/01/24 04/01/24 04/01/24 11:46 15:37 16:40 WBC RBC Hgb Hct MCV MCH MCHC RDW Plt Count MPV Immature Gran % (Auto) Neut % (Auto) Lymph % (Auto) [place] % (Auto) Eos % (Auto) Baso % (Auto) Lymph # (Auto) [place] # (Auto) Eos # (Auto) Baso # (Auto) Abs Immat Gran (auto) Absolute Neuts (auto) Absolute Nucleated RBC Neutrophils % (Manual) Band Neutrophils % Lymphocytes % (Manual) Monocytes % (Manual) Eosinophils % (Manual) Basophils % (Manual) Nucleated RBC % Abs Neuts (Manual) Abs Lymphs (Manual) Abs Monocytes (Manual) Absolute Eos (Manual) Abs Basophils (Manual) Platelet Estimate Anisocytosis Schistocytes Sodium Potassium Chloride Carbon Dioxide Anion Gap BUN Creatinine Estim Creat Clear Calc Estimated GFR Glucose POC Capillary Glucose 115 H 104 107 H Calcium Magnesium Total Bilirubin AST ALT Alkaline Phosphatase Total Protein Albumin Vancomycin Trough 04/01/24 04/02/24 04/02/24 19:25 00:34 06:36 WBC 9.4 RBC 4.40 L Hgb 13.0 L Hct 41.1 L MCV 93.4 MCH 29.5 MCHC 31.6 L RDW 13.2 Plt Count 298 MPV 9.9 Immature Gran % (Auto) Not Reportable Neut % (Auto) Not Reportable Lymph % (Auto) Not Reportable [place] % (Auto) Not Reportable Eos % (Auto) Not Reportable Baso % (Auto) Not Reportable Lymph # (Auto) Not Reportable [place] # (Auto) Not Reportable Eos # (Auto) Not Reportable Baso # (Auto) Not Reportable Abs Immat Gran (auto) Not Reportable Absolute Neuts (auto) Not Reportable Absolute Nucleated RBC Not Reportable Neutrophils % (Manual) 69 Band Neutrophils % 4 Lymphocytes % (Manual) 16 L Monocytes % (Manual) 7 Eosinophils % (Manual) 3 Basophils % (Manual) 1 Nucleated RBC % Not Reportable Abs Neuts (Manual) 6.86 H Abs Lymphs (Manual) 1.50 Abs Monocytes (Manual) 0.65 Absolute Eos (Manual) 0.28 Abs Basophils (Manual) 0.09 Platelet Estimate Adequate Anisocytosis 1+ Schistocytes None seen Sodium 137 Potassium 4.1 Chloride 104 Carbon Dioxide 29 Anion Gap 4 BUN 12 Creatinine 0.80 Estim Creat Clear Calc 135 Estimated GFR > 60 Glucose 129 H POC Capillary Glucose 185 H Calcium 8.5 Magnesium 2.2 Total Bilirubin 0.6 AST 51 ALT 67 H Alkaline Phosphatase 94 Total Protein 7.0 Albumin 3.6 Vancomycin Trough 7.6 L 04/02/24 07:53 WBC RBC Hgb Hct MCV MCH MCHC RDW Plt Count MPV Immature Gran % (Auto) Neut % (Auto) Lymph % (Auto) [place] % (Auto) Eos % (Auto) Baso % (Auto) Lymph # (Auto) [place] # (Auto) Eos # (Auto) Baso # (Auto) Abs Immat Gran (auto) Absolute Neuts (auto) Absolute Nucleated RBC Neutrophils % (Manual) Band Neutrophils % Lymphocytes % (Manual) Monocytes % (Manual) Eosinophils % (Manual) Basophils % (Manual) Nucleated RBC % Abs Neuts (Manual) Abs Lymphs (Manual) Abs Monocytes (Manual) Absolute Eos (Manual) Abs Basophils (Manual) Platelet Estimate Anisocytosis Schistocytes Sodium Potassium Chloride Carbon Dioxide Anion Gap BUN Creatinine Estim Creat Clear Calc Estimated GFR Glucose POC Capillary Glucose 122 H
[2024-04-02] MEDS: METOPROLOL TARTRATE 12.5 MG TABLET PO ×2 (09:27→20:32)
[2024-04-02] MEDS: cefTRIAXone 2 GM/NS 100 ML 2 GM/100 ML BAG IVPB (09:27)
[2024-04-02] MEDS: ENOXAPARIN 40 MG/0.4 ML SYRINGE SUB-Q (09:27)
[2024-04-02] MEDS: FENOFIBRATE 160 MG TABLET PO (09:27)
[2024-04-02] MEDS: NICOTINE (*PBKC) 21 MG PATCH 1 PATCH TRANSDERM (09:28)
[2024-04-02] MEDS: ACETAMINOPHEN 325 MG TABLET 650 MG PO (09:31)
[2024-04-02 11:53] LABS: Glucose Point of Care 149 mg/dl (65-105)
[2024-04-02] MEDS: MORPHINE SULFATE (*CRX) 2 MG/ML INJ IV PUSH (11:55)
[2024-04-02] MEDS: DOXYCYCLINE HYCLATE 100 MG TABLET PO ×2 (13:03→20:31)
--- NOTE | 2024-04-02 13:13 | PM.PNGS ---
Progress Note: A&P Assessment and Plan (1) Cellulitis and abscess of buttock: Code(s): L02.31 - Cutaneous abscess of buttock; L03.317 - Cellulitis of buttock Status: Acute Assessment and Plan: S/p I&D perirectal abscess. Packing removed today. Induration and erythema improving. Continue local wound care with gauze/ABD dressing changes. Continue antibiotics. Plan I have discussed the patient's case and plan of care with Dr. Marte. Subjective Subjective Date/Time Seen: 04/02/24 13:13 Patient reports: no new complaints, feels better, pain is less and afebrile Interval history: Patient reports perirectal pain is better following surgery. Pressure feels relieved. Denies any specific complaints at this time. Exam Narrative: Right buttock dressing and packing removed. No purulent drainage. Induration and erythema improving. Const: General: comfortable and no acute distress Objective Data Vital Signs Vital Signs: Vital Signs - 24 hr 04/01/24 14:55 04/01/24 15:10 04/01/24 15:25 Temperature 97.5 F L Pulse Rate 79 76 73 Respiratory Rate 14 14 16 Blood Pressure 84/46 L 86/50 L 100/66 Pulse Oximetry 99 99 100 Oxygen Delivery Simple Face Mask Simple Face Mask Simple Face Mask Oxygen Flow Rate 8 8 8 04/01/24 15:40 04/01/24 15:55 04/01/24 16:16 Temperature Pulse Rate 71 75 Respiratory Rate 16 16 Blood Pressure 91/66 L 121/79 Pulse Oximetry 100 98 99 Oxygen Delivery Room Air Room Air Room Air Oxygen Flow Rate 04/01/24 16:15 04/01/24 16:30 04/01/24 17:05 Temperature 97.5 F L 98.1 F 98.2 F Pulse Rate 71 68 91 Respiratory Rate 20 18 18 Blood Pressure 115/78 123/80 120/81 Pulse Oximetry 98 96 99 Oxygen Delivery Oxygen Flow Rate 04/01/24 21:10 04/01/24 21:29 04/01/24 20:41 Temperature 97.1 F L Pulse Rate 72 82 Respiratory Rate 18 Blood Pressure 118/71 Pulse Oximetry 100 99 Oxygen Delivery Room Air Oxygen Flow Rate 04/01/24 22:20 04/02/24 01:18 04/02/24 03:02 Temperature 96.7 F L Pulse Rate 80 68 Respiratory Rate 12 16 10 L Blood Pressure 129/71 Pulse Oximetry 99 90 99 Oxygen Delivery Autopap Autopap Oxygen Flow Rate 04/02/24 05:42 04/02/24 09:27 04/02/24 09:39 Temperature 97.9 F Pulse Rate 74 65 Respiratory Rate 12 20 Blood Pressure 127/69 Pulse Oximetry 98 100 Oxygen Delivery Autopap Oxygen Flow Rate Intake/Output Intake/Output: Intake & Output 03/30/24 03/31/24 04/01/24 04/02/24 23:59 23:59 23:59 23:59 Intake Total 2131.8 1670 2110 1460 Output Total 850 850 Balance 1281.8 1670 1260 1460 Meds/Results Medications: Active Medications Generic Name Dose Route Start Last Admin Trade Name Freq PRN Reason Stop Dose Admin Acetaminophen 650 mg 03/27/24 11:30 04/02/24 09:31 Acetaminophen 325 Mg Tablet PO 650 mg Q4H PRN Administration Mild Pain (1-3) or Fever Acetaminophen/Aspirin/Caffeine 1 tablet 03/30/24 16:09 04/01/24 21:07 Acetaminophen/Aspirin/Caffeine 250-250-65 Mg Tablet PO 1 tablet Q6H PRN Administration Headache Atorvastatin Calcium 80 mg 03/29/24 21:00 04/01/24 21:10 Atorvastatin 40 Mg Tablet PO 80 mg QHS CAITLIN Administration Cefuroxime Axetil 500 mg 04/02/24 21:00 Cefuroxime Axetil 250 Mg Tablet PO Q12HR CAITLIN Dextrose 12.5 gm 03/26/24 13:29 03/29/24 23:56 Dextrose 50% 25 Gm/50 Ml Syringe IV PUSH 12.5 gm PRN PRN Administration Hypoglycemia Protocol Doxycycline Hyclate 100 mg 04/02/24 12:00 04/02/24 13:03 Doxycycline Hyclate 100 Mg Tablet PO 100 mg Q12HR CAITLIN Administration Enoxaparin Sodium 40 mg 03/27/24 09:00 04/02/24 09:27 Enoxaparin 40 Mg/0.4 Ml Syringe SUB-Q 40 mg DAILY CAITLIN Administration Fenofibrate 160 mg 03/26/24 09:55 04/02/24 09:27 Fenofibrate 160 Mg Tablet PO 160 mg DAILY CAITLIN Administration Glucagon 1 mg 03/26/24 13:29 Glucagon For Inj 1 Mg Vial IM PRN PRN
--- NOTE | 2024-04-02 13:57 | PM.IMPN ---
Progress Note: A&P Assessment and Plan (1) Hypertriglyceridemia: Code(s): E78.1 - Pure hyperglyceridemia Status: Acute Assessment and Plan: Patient presented with nonspecific symptoms, chest pain, not feeling well, cough. With his blood was drawn in the ER stated that his lipids were very high so they checked his lipid panel and his high triglycerides were > 2625 his cholesterol was > 650. -patient was started on insulin infusion, adequately fluid-resuscitated the ICU -PICC line was placed on 03/26, and started on Dextrose 20% and increased insulin infusion -discussed with Nephrology, continue insulin for now, if patient's triglycerides do not improve in the 1-2 days, may require plasmapheresis -continue fenofibrate and atorvastatin Continue insulin infusion and dextrose 20%, triglycerides improving, continue to monitor - insulin infusion discontinued 03/30/2024 Once triglyceride were lower than 500 03/25:CT scan of the abdomen and pelvis: IMPRESSION: Moderate pulmonary edema. Hepatosplenomegaly. Hepatic steatosis. Otherwise, no acute abdominopelvic process detected; continue fenofibrate and atorvastatin as ordered (2) Pneumonia: Code(s): J18.9 - Pneumonia, unspecified organism Status: Acute Assessment and Plan: Bilateral infiltrates on chest x-ray with cough, leukocytosis -continue ceftriaxone and azithromycin -03/26: Preliminary blood cultures -no growth to date -03/26: Urine culture - no growth Chest x-ray 03/27: Minimal patchy haziness left midlung. Correlate for pneumonia. Right-sided PICC line in place. Remains on ceftriaxone. Will discontinue azithromycin completed course. 04/02/24: Add Cefuroxime, Doxycycline (3) Pulmonary edema: Qualifiers: Chronicity: acute Qualified Code(s): J81.0 - Acute pulmonary edema Code(s): J81.1 - Chronic pulmonary edema Status: Acute Assessment and Plan: Initial chest x-ray on admission showed pulmonary edema 03/26/2024 Echocardiogram Summary ? 1. Left ventricular chamber dimension is normal. ? 2. Left ventricular systolic function is normal, estimated at 65-70%. ? 3. The left ventricular diastolic function is grade III diastolic dysfunction. ? 4. Right ventricular chamber dimension is mildly enlarged. ? 5. Right ventricular systolic function is normal. ? 6. No significant valvular disease. (4) Diastolic dysfunction: Code(s): I51.89 - Other ill-defined heart diseases Status: Acute Assessment and Plan: New onset grade 3 diastolic dysfunction on echocardiogram as above -appreciate cardiology evaluation and recommendation (5) Hypothyroidism (acquired): Code(s): E03.9 - Hypothyroidism, unspecified Status: Acute Assessment and Plan: Continue levothyroxine -TSH within normal limits (6) Hyperlipidemia: Code(s): E78.5 - Hyperlipidemia, unspecified Status: Acute Assessment and Plan: Cholesterol on admission was > 650, LDL was 88, HDL test was not performed - Continue atorvastatin and fenofibrate (7) MO (obstructive sleep apnea): Code(s): G47.33 - Obstructive sleep apnea (adult) (pediatric) Status: Acute Assessment and Plan: CPAP at night and while sleeping (8) Morbid (severe) obesity due to excess calories: Code(s): E66.01 - Morbid (severe) obesity due to excess calories Status: Acute Assessment and Plan: Patient will be counseled on dietary habits and exercise (9) Diabetes: Code(s): E11.9 - Type 2 diabetes mellitus without complications Status: Acute Assessment and Plan: Hemoglobin A1c was 9.4 this admission, likely new onset diabetes Will have dietitian and museum educator follow the patient -currently on insulin drip, w Switched to Lantus and NovoLog staff development educator consultation (10) Cellulitis and abscess of buttock: Code(s): L02.31 - Cutaneous abscess of buttock; L03.317 - Cellulitis of
[2024-04-02 16:57] LABS: Glucose Point of Care 183 mg/dl (65-105)
[2024-04-02 20:00] LABS: Glucose Point of Care 207 mg/dl (65-105)
[2024-04-02] MEDS: INSULIN ASPART (*BKC) 100 UNITS/ML SUB-Q (20:23)
[2024-04-02] MEDS: INSULIN GLARGINE (*BKC) 100 UNITS/ML 15 UNITS SUB-Q (20:23)
[2024-04-02] MEDS: MELATONIN 3 MG TABLET PO (20:31)
[2024-04-02] MEDS: cefuroxime axetiL 250 MG TABLET 500 MG PO (20:31)
[2024-04-02] MEDS: ATORVASTATIN 40 MG TABLET 80 MG PO (20:31)
[2024-04-03 01:30] VITALS: PULSE 61; RESP 12; O2SAT 97
[2024-04-03 04:23] VITALS: BP 111/54; PULSE 64; RESP 17; TEMP 36.6; O2SAT 97
[2024-04-03] MEDS: LEVOTHYROXINE SODIUM 75 MCG TABLET PO (05:54)
[2024-04-03] MEDS: CENTRAL LINE FLUSH 10 ML IV PUSH (05:54)
[2024-04-03 06:06] LABS: Basophils Absolute Auto 0.1 K/mm3 (0.0-0.1); Eosinophils Absolute Auto 0.2 K/mm3 (0-0.3); Eosinophils Percent Auto 2.6 % (0-4.4); Hematocrit 39.7 % (42.0-52.0); Hemoglobin 12.7 g/dL (14.0-18.0); Immature Granulocyte Absolute 0.78 K/mm3 (0.00-0.031); Immature Granulocyte Percent A 8.4 % (0-0.5); Lymphocytes Absolute Auto 2.45 K/mm3 (0.9-3.2); Lymphocytes Percent Auto 26.5 % (18.3-44.2); Mean Corpuscular Hemoglobin 30.1 pg (26-34); Mean Corpuscular Volume 94.1 fl (80-100); Mean Platelet Volume 10.1 fl (7.4-10.4); Monocytes Absolute Auto 0.7 K/mm3 (0.1-0.6); Monocytes Percent Auto 7.9 % (2.6-8.5); Neutrophils Percent Auto 53.6 % (45.5-73.1); Platelet Count Result 192 k/mm3 (150-375); Red Blood Count 4.22 M/mm3 (4.6-6.20); Red Cell Distribution Width 13.2 % (11.5-14.5); White Blood Count 9.3 K/mm3 (4.5-10.0)
[2024-04-03 06:14] LABS: Alanine Aminotransferase 65 U/L (6-50); Albumin Level 3.4 g/dL (3.5-5.1); Alkaline Phosphatase 93 U/L (38-126); Anion Gap 5 mmol/L (4-12); Aspartate Amino Transferase 49 U/L (17-59); Bilirubin,Total 0.4 mg/dL (0.2-1.3); Blood Urea Nitrogen 14 mg/dL (9-20); Calcium 8.1 mg/dL (8.4-10.2); Carbon Dioxide 24 mmol/L (22-30); Chloride 109 mmol/L (98-107); Estimated CRCL calculation 152 ml/min; Estimated Glomerular Filt Rate > 60; Glucose 148 mg/dL (65-110); Potassium 3.9 mmol/L (3.4-5.0); Sodium 138 mmol/L (137-145)
[2024-04-03 07:55] LABS: Glucose Point of Care 148 mg/dl (65-105)
[2024-04-03 08:41] VITALS: PULSE 70
[2024-04-03] MEDS: cefuroxime axetiL 250 MG TABLET 500 MG PO (08:41)
[2024-04-03] MEDS: DOXYCYCLINE HYCLATE 100 MG TABLET PO (08:41)
[2024-04-03] MEDS: METOPROLOL TARTRATE 12.5 MG TABLET PO (08:41)
[2024-04-03] MEDS: NICOTINE (*PBKC) 21 MG PATCH 1 PATCH TRANSDERM (08:42)
[2024-04-03] MEDS: FENOFIBRATE 160 MG TABLET PO (08:42)
[2024-04-03] MEDS: ENOXAPARIN 40 MG/0.4 ML SYRINGE SUB-Q (08:42)
--- NOTE | 2024-04-03 11:44 | PM.DS ---
DS: Admitting Diagnosis Discharge Date 04/03/24 Admitting Diagnosis 1. Hypertriglyceridemia 2. Community acquired Pneumonia 3. Right gluteal/carlyle-rectal abscess 4. NIDDM; T2DM DS: Discharge Diagnosis Discharge Diagnosis (1) Hypertriglyceridemia: Code(s): E78.1 - Pure hyperglyceridemia Status: Acute Assessment and Plan: Patient presented with nonspecific symptoms, chest pain, not feeling well, cough. With his blood was drawn in the ER stated that his lipids were very high so they checked his lipid panel and his high triglycerides were > 2625 his cholesterol was > 650. -patient was started on insulin infusion, adequately fluid-resuscitated the ICU -PICC line was placed on 03/26, and started on Dextrose 20% and increased insulin infusion -discussed with Nephrology, continue insulin for now, if patient's triglycerides do not improve in the 1-2 days, may require plasmapheresis -continue fenofibrate and atorvastatin Continue insulin infusion and dextrose 20%, triglycerides improving, continue to monitor - insulin infusion discontinued 03/30/2024 Once triglyceride were lower than 500 03/25:CT scan of the abdomen and pelvis: IMPRESSION: Moderate pulmonary edema. Hepatosplenomegaly. Hepatic steatosis. Otherwise, no acute abdominopelvic process detected; continue fenofibrate and atorvastatin as ordered (2) Pneumonia: Code(s): J18.9 - Pneumonia, unspecified organism Status: Acute Assessment and Plan: Bilateral infiltrates on chest x-ray with cough, leukocytosis -continue ceftriaxone and azithromycin -03/26: Preliminary blood cultures -no growth to date -03/26: Urine culture - no growth Chest x-ray 03/27: Minimal patchy haziness left midlung. Correlate for pneumonia. Right-sided PICC line in place. Remains on ceftriaxone. Will discontinue azithromycin completed course. 04/02/24: Add Cefuroxime, Doxycycline (3) Pulmonary edema: Qualifiers: Chronicity: acute Qualified Code(s): J81.0 - Acute pulmonary edema Code(s): J81.1 - Chronic pulmonary edema Status: Acute Assessment and Plan: Initial chest x-ray on admission showed pulmonary edema 03/26/2024 Echocardiogram Summary ? 1. Left ventricular chamber dimension is normal. ? 2. Left ventricular systolic function is normal, estimated at 65-70%. ? 3. The left ventricular diastolic function is grade III diastolic dysfunction. ? 4. Right ventricular chamber dimension is mildly enlarged. ? 5. Right ventricular systolic function is normal. ? 6. No significant valvular disease. (4) Diastolic dysfunction: Code(s): I51.89 - Other ill-defined heart diseases Status: Acute Assessment and Plan: New onset grade 3 diastolic dysfunction on echocardiogram as above -appreciate cardiology evaluation and recommendation (5) Hypothyroidism (acquired): Code(s): E03.9 - Hypothyroidism, unspecified Status: Acute Assessment and Plan: Continue levothyroxine -TSH within normal limits (6) Hyperlipidemia: Code(s): E78.5 - Hyperlipidemia, unspecified Status: Acute Assessment and Plan: Cholesterol on admission was > 650, LDL was 88, HDL test was not performed - Continue atorvastatin and fenofibrate (7) MO (obstructive sleep apnea): Code(s): G47.33 - Obstructive sleep apnea (adult) (pediatric) Status: Acute Assessment and Plan: CPAP at night and while sleeping (8) Morbid (severe) obesity due to excess calories: Code(s): E66.01 - Morbid (severe) obesity due to excess calories Status: Acute Assessment and Plan: Patient will be counseled on dietary habits and exercise (9) Diabetes: Code(s): E11.9 - Type 2 diabetes mellitus without complications Status: Acute Assessment and Plan: Hemoglobin A1c was 9.4 this admission, likely new onset diabetes Will have dietitian and museum educator follow the patient -currently on insulin dri
[2024-04-03 11:50] LABS: Glucose Point of Care 188 mg/dl (65-105)
== END 2024-04-03 15:54 | disposition home or self-care (01) | DRG 951 ==
LOC: ANHED 03-26 01:14 → ANHICU 03-26 05:07 → ANH2MED 03-31 12:42 → ANHICU 04-04 07:44
PROVIDERS: Family Medicine; Internal Medicine; Surgery; Admitting Provider Internal Medicine; Emergency Provider Emergency Medicine; Visit Provider Internal Medicine
PROC: 0J990ZZ Drainage of Buttock Subcutaneous Tissue and Fascia, Open Approach (ICD-10-PCS; CPT 46040; principal; 2024-04-01 13:30)
DX: E78.1 Pure hyperglyceridemia (principal); J18.9 Pneumonia, unspecified organism; I51.89 Other ill-defined heart diseases; J81.1 Chronic pulmonary edema; L02.31 Cutaneous abscess of buttock; L03.317 Cellulitis of buttock; E87.20 Acidosis, unspecified; E03.9 Hypothyroidism, unspecified; E78.5 Hyperlipidemia, unspecified; E11.9 Type 2 diabetes mellitus without complications; E66.01 Morbid (severe) obesity due to excess calories; G47.33 Obstructive sleep apnea (adult) (pediatric); F17.290 Nicotine dependence, other tobacco product, uncomplicated; F17.210 Nicotine dependence, cigarettes, uncomplicated; Z20.822 Contact with and (suspected) exposure to COVID-19
CPT/HCPCS: 36415; 36569; 71045; 72192; 74177; 80053; 80061; 80202; 81001; 82948; 83036; 83605; 83690; 83735; 83880; 84100; 84443; 84478; 84484; 85025; 85610; 85730; 87040; 87086; 87637; 87641; 93005; 93306; 96361; 96374; 96375; 99285; A9270; J0456; J0696; J1170; J1650; J1815; J2250; J2270; J2405; J2704; J3010; J3370; J3480; J7030; J7042; J7120; Q9957; Q9967

== ENCOUNTER 2024-10-17 20:39 | Emergency (ER) | payer SELFPAY ==
--- NOTE | ~2024-10-17 | CT_ITS ---
CTA chest PE abdomen pel Ordering provider: Donta Ramon MD History: . syncope, chest pain, abdominal pain . Comparison: None. Technique: CT angiogram chest was performed following timed intravenous injection of contrast. Thin s lice axial images and reformatted coronal images were obtained. Three dimensional reformatted images of the chest were also obtained using a [employer] workstation. Also, CT of the abdomen and pelvis was pe rformed with IV contrast. . Automated exposure control and iterative reconstruction technique were e mployed. The dose-length product was 3269.30 mGy-cm. 100 mL Omnipaque 350 was given IV. FINDINGS: CHEST: --PULMONARY ARTERIES: No pulmonary embolus. --VISUALIZED THORACIC INLET: Normal. --MEDIASTINUM: Aorta/coronary arteries: The thoracic aorta is normal. Aberrant right subclavian artery. Heart/other: The heart is not enlarged. Lymph nodes: No mediastinal or hilar adenopathy. Lymph nodes are seen in the left hilum. --LUNGS: Groundglass appearance is seen in the left lower lobe suggestive of pneumonia versus edema. Minimal c hanges are seen in the right lung base.. No pulmonary nodules or masses. No effusions. No pneumothora x. --MUSCULOSKELETAL: Bones: Age appropriate degenerative changes of the spine. Superficial soft tissues: The superficial soft tissues are normal. ABDOMEN/PELVIS: --MUSCULOSKELETAL: Superficial soft tissues: Fat containing umbilical hernia. The superficial soft tissues are normal. Bones: Normal spine. Left sacroiliitis. --UPPER ABDOMINAL ORGANS: Liver: Fat infiltration. Hepatomegaly. Gallbladder: Contracted. Spleen: Normal. Stomach/duodenum: Normal. Pancreas: Normal. Adrenals: Normal. Kidneys: Normal. --PELVIC ORGANS: The bladder is normal. No bladder stones. --BOWEL AND MESENTERY: Colon: No evidence of diverticulitis.. Fecal material is loaded in the colon. No evidence of appendic itis. Small Bowel: Normal. No obstruction. Peritoneum/mesentery: No free air or free fluid. No mesenteric lymphadenopathy. --RETROPERITONEUM: Normal aorta. No retroperitoneal lymphadenopathy. IMPRESSION: CHEST: 1. Groundglass appearance in the lower lobes more on the left side suggestive of pneumonitis versus edema. Clinical correlation and follow-up advised. 2. Aberrant right subclavian artery. ABDOMEN/PELVIS: 1. No acute cardiopulmonary pathology. 2. Fat infiltration of the liver. Hepatomegaly. Reviewed, dictated and finalized at location A. APPLIANCE ADJUSTER
--- NOTE | ~2024-10-17 | CT_ITS ---
CT brain wo con Ordering provider: Donta Ramon MD History: 39 years Male with . headache . Comparison: March 05, 2019 Technique: CT of the head without contrast. Radiation reduction technique utilized.The dose-length pr oduct was 756.67 mGy-cm. FINDINGS: BRAIN PARENCHYMA AND CSF SPACES: No midline shift, mass effect or hemorrhage. The brain parenchyma a nd CSF spaces are otherwise normal. VISUALIZED PARANASAL SINUSES: Well aerated. MASTOIDS: Well aerated. BONES: The bones appear intact. SOFT TISSUES: Visualized nasopharynx is normal. Superficial soft tissues are normal. IMPRESSION: No acute intracranial findings. Reviewed, dictated and finalized at location A. S REP
[2024-10-17 20:45] LABS: Glucose Point of Care 229 mg/dl (65-105)
[2024-10-17 20:47] VITALS: BP 132/76; PULSE 79; RESP 16; TEMP 36.4; O2SAT 98
--- NOTE | 2024-10-17 20:54 | ECG_ITS ---
Test Date: 2024-10-17 21:48:48 Measurements Intervals [place] Rate: 71 P: 31 ID: [id number] QRS: -34 QRSD: 111 T: 25 QT: 398 QTc: 434 Interpretive Statements SINUS RHYTHM LEFT AXIS DEVIATION [QRS AXIS < -30] PATTERN CONSISTENT WITH PULMONARY DISEASE INCOMPLETE RIGHT BUNDLE BRANCH BLOCK [90+ ms QRS DURATION, TERMINAL R IN V1/V2, 40+ ms S IN I/aVL/V4/V5/V6] No previous ECG available for comparison Electronically Signed On 10-18-2024 14:30:02 [employer] by Odell Plascencia M.D.
[2024-10-17 21:20] LABS: Basophils Absolute Auto 0.1 K/mm3 (0.0-0.1); Basophils Percent Auto 0.7 % (0.2-1.2); Eosinophils Absolute Auto 0.1 K/mm3 (0-0.3); Eosinophils Percent Auto 1.4 % (0-4.4); Hematocrit 41.4 % (42.0-52.0); Hemoglobin 14.3 g/dL (14.0-18.0); Immature Granulocyte Absolute 0.08 K/mm3 (0.00-0.031); Immature Granulocyte Percent A 0.8 % (0-0.5); Lymphocytes Absolute Auto 3.28 K/mm3 (0.9-3.2); Lymphocytes Percent Auto 33.8 % (18.3-44.2); Mean Corpuscular HGB Conc 34.5 g/dl (32-36); Mean Corpuscular Hemoglobin 30.4 pg (26-34); Mean Corpuscular Volume 88.1 fl (80-100); Mean Platelet Volume 9.9 fl (7.4-10.4); Monocytes Absolute Auto 0.7 K/mm3 (0.1-0.6); Monocytes Percent Auto 6.9 % (2.6-8.5); Neutrophils Absolute Auto 5.5 K/mm3 (1.3-6.7); Neutrophils Percent Auto 56.4 % (45.5-73.1); Platelet Count Result 249 k/mm3 (150-375); Red Cell Distribution Width 13.2 % (11.5-14.5); White Blood Count 9.7 K/mm3 (4.5-10.0)
--- NOTE | 2024-10-17 21:21 | PC.NURSE ---
Pt c/o headache and abd pain that started around 1200 today. Pt is difficult to arouse but is A&O x 4
[2024-10-17] MEDS: ONDANSETRON INJ 4 MG/2 ML VIAL IV PUSH (21:33)
[2024-10-17] MEDS: SODIUM CHLORIDE 0.9% IV 1,000 ML 999 ML IV CONT (21:33)
[2024-10-17 21:34] LABS: Alanine Aminotransferase 40 U/L (6-50); Albumin Level 4.5 g/dL (3.5-5.1); Alkaline Phosphatase 80 U/L (38-126); Anion Gap 6 mmol/L (4-12); Aspartate Amino Transferase 29 U/L (17-59); Bilirubin,Total 0.4 mg/dL (0.2-1.3); Blood Urea Nitrogen 18 mg/dL (9-20); Calcium 9.7 mg/dL (8.4-10.2); Carbon Dioxide 25 mmol/L (22-30); Chloride 105 mmol/L (98-107); Estimated CRCL calculation 135 ml/min; Estimated Glomerular Filt Rate > 60; Glucose 225 mg/dL (65-110); Lipase 265 U/L (23-300); Magnesium 1.8 mg/dL (1.6-2.3); Potassium 4.2 mmol/L (3.4-5.0); Sodium 136 mmol/L (137-145)
[2024-10-17 21:35] LABS: Lactic Acid Reflex 2.2 mmol/L (0.7-2.0)
[2024-10-17 21:45] LABS: Troponin I < 0.012 ng/mL (0.000-0.034)
[2024-10-17 21:53] LABS: Procalcitonin 0.1 ng/mL
[2024-10-17 22:38] VITALS: BP 152/89; PULSE 76; RESP 18; O2SAT 96
[2024-10-17 23:01] LABS: Ethanol < 10 mg/dL (<10)
[2024-10-17 23:33] LABS: Alveolar/Arterial O2 Gradient 25.2 mmHg; Base Excess ABG -0.6 mEq/l (+/-2.0); Fractional Inspired Oxygen 21 %; Oxygen Content ABG 18.8 %vol (16.0-22.0); Oxygen Saturation ABG 95.5 % (95.0-100.0); Oxyhemoglobin 90.6 % THb (90.0-100.0); PCO2 ABG 39.5 mmHg (35.0-45.0); PO2 ABG 77.2 mmHg (80.0-100.0); PO2 FiO2 Ratio Arterial Blood 3.68 %; Total Hemoglobin 14.7 g/dL (12.0-18.0); pH ABG 7.402 (7.350-7.450)
[2024-10-17 23:34] LABS: Site Drawn LEFT RADIAL
[2024-10-17 23:35] LABS: Device ROOM AIR; Modified Allen's Test Pass
[2024-10-17 23:48] LABS: Add Urine Microscopic? NO; Appearance Urine Clear (Clear); Bilirubin Urine Negative (Negative); Blood Urine Negative (Negative); Color Urine Yellow (Yellow); Glucose Urine UA 1+ mg/dL (Negative); Ketones Urine Negative (Negative); Leukocyte Esterase Ur Negative LEU/UL (Negative); Nitrate Urine Negative (Negative); Protein Urine Negative (Negative); Specific Grav Ur 1.021 (1.001-1.035); Urobilinogen Urine 0.2 mg/dL (<2.0)
[2024-10-18 00:20] LABS: Reflex Lactic Acid Yes or No Add Lactic
[2024-10-18 00:45] LABS: Lactic Acid 1.8 mmol/L (0.7-2.0)
[2024-10-18 01:07] VITALS: BP 155/97; PULSE 63; RESP 11; O2SAT 92
[2024-10-18 01:38] LABS: Amphetamine Screen Urine Negative (Negative); Barbiturate Screen Urine Negative (Negative); Benzodiazepines Screen Urine Negative (Negative); Cannabinoid Screen Urine Negative (Negative); Cocaine Screen Urine Negative (Negative); Methadone Screen Urine Negative (Negative); Opiate Screen Urine Negative (Negative); Phencyclidine Screen Urine Negative (Negative)
--- NOTE | 2024-10-18 02:44 | ED_ITS ---
HPI - General Adult General Chief complaint: Abdominal Pain Stated complaint: abd pain, 400+ BG, T2DM Time Seen by Provider: 10/17/24 21:03 History of Present Illness HPI narrative: Patient 39-year-old gentleman presents emergency department with chief complaint of abdominal pain and chest discomfort the patient also reports he has had a headache reports he has had appendectomy before in the past reports that he feels very drowsy and very weak. Related Data Home Medications Medication Instructions Recorded Confirmed levothyroxine 100 mcg tablet 75 mcg PO DAILY 03/26/24 04/18/24 Allergies Allergy/AdvReac Type Severity Reaction Status Date / Time Penicillins Allergy Mild Rash Verified 10/17/24 20:40 Review of Systems Review of Systems: A 10 system review of systems was completed on the patient and is negative except for what is stated in the HPI. Nursing and ancillary documentation was reviewed. [facility] Past Medical History Medical History BMI 35.0-35.9,adult Chest pain Compensated hypothyroidism Hyperlipidemia Obesity MO (obstructive sleep apnea) Stress at work Tobacco abuse Surgical History Surgical History H/O excision of mass Excision of 4cm back mass on 08/16/22 S/P appendectomy Status post incision and drainage I&D complex perirectal abscess 12x5cm Dr. Marylu Marte Family History Family History Mother Patient's mother is in good health Asthma Father Family history of arthritis Glioblastoma Sibling Patient's brother is in good health Social History Social History Social History: Smoking packs per day: 1 Smoking cigarettes per day: 20.0 Years smoked: 22 Smoking pack-years: 22.00 Smoking status: Current every day smoker Tobacco type: cigarettes and e-cigarettes/vaping Second hand tobacco smoke exposure: Yes Smoking end date: 02/03/21 Additional smoking assessment comments: Pt is vaping now. Alcohol intake: never Alcohol use details: Occasionally Substance use: never Substance use type: does not use Do You Feel Safe in your Home?: Yes Lack of Transportation: No Lack of Food: Never True Current Housing: I Have Housing Concerned About Future Housing: No Difficulty Paying Gas/Electric Bills: No Difficulty Paying for Meds: No Currently Unemployed: No Education: High School Diploma/GED Difficulty w/ Childcare or Family Care: No Living arrangements: with family Occupation/Education: occupation Gender identity (if verbalized by the patient): Male Sexual Orientation (if Verbalized by the Patient): Straight or Heterosexual Spiritual care concerns: No Exam Narrative: GENERAL: Well-appearing, well-nourished, and in no acute distress. Drowsy HEAD: Normocephalic, atraumatic. EYES: PERRLA and EOMI. ENT: Nares clear, no rhinorrhea or epistaxis. Mucous membranes moist. NECK: Supple. CHEST: Clear to auscultation. No respiratory distress. HEART: Regular rate and rhythm. No murmur heard. Normal peripheral pulses. ABDOMEN: Soft, nontender, nondistended, normal active bowel sounds. EXTREMITIES: Normal range of motion. No edema. SKIN: Warm, dry, no rash. NEURO: No focal deficits. Alert and oriented x3. PSYCH: Normal mood and affect. Course Vital Signs Vital signs: Vital Signs Temperature 36.4 C L 10/17/24 20:47 Pulse Rate 79 10/17/24 20:47 Respiratory Rate 16 10/17/24 20:47 Blood Pressure 132/76 10/17/24 20:47 Pulse Oximetry 98 10/17/24 20:47 Oxygen Delivery Room Air 10/17/24 20:47 Temperature 36.4 C L 10/17/24 20:47 Pulse Rate 63 10/18/24 01:07 Respiratory Rate 11 L 10/18/24 01:07 Blood Pressure 155/97 H 10/18/24 01:07 Pulse Oximetry 92 10/18/24 01:07 Oxygen Delivery Room Air 10/17/24 20:47 Medical Decision Making MDM Narrative Medical decision making narrative: Differential diagnosis includes intoxication, hypercapnic respiratory failure, pneumonia, bronchitis CT head showed no acute abnormality CTA chest with abdomen pelvis showed possible bronchitis/pneumonitis There are no acute findings in the abdomen The patient is able to ambulate without difficulty he is feeling better Vital Signs Vital Signs: Vital Signs Temperature 36.4 C L 10/17/24 20:47 Pulse Rate 79 10/17/24 20:47 Respiratory Rate 16 10/17/24 20:47 Blood Pressure 132/76 10/17/24 20:47 Pulse Oximetry 98 10/17/24 20:47 Oxygen Delivery Room Air 10/17/24 20:47 Temperature 36.4 C L 10/17/24 20:47 Pulse Rate 63 10/18/24 01:07 Respiratory Rate 11 L 10/18/24 01:07 Blood Pressure 155/97 H 10/18/24 01:07 Pulse Oximetry 92 10/18/24 01:07 Oxygen Delivery Room Air 10/17/24 20:47 Lab Data 10/17/24 21:13 10/17/24 21:13 Labs: Lab Results 10/17/24 10/17/24 10/17/24 Range/Units 20:43 21:13 23:36 WBC 9.7 (4.5-10.0) K/mm3 RBC 4.70 (4.6-6.20) M/mm3 Hgb 14.3 (14.0-18.0) g/dL Hct 41.4 L (42.0-52.0) % MCV 88.1 (80-100) fl MCH 30.4 (26-34) pg MCHC 34.5 (32-36) g/dl RDW 13.2 (11.5-14.5) % Plt Count 249 (150-375) k/mm3 MPV 9.9 (7.4-10.4) fl Immature Gran % (Auto) 0.8 H (0-0.5) % Neut % (Auto) 56.4 (45.5-73.1) % Lymph % (Auto) 33.8 (18.3-44.2) % [place] % (Auto) 6.9 (2.6-8.5) % Eos % (Auto) 1.4 (0-4.4) % Baso % (Auto) 0.7 (0.2-1.2) % Lymph # (Auto) 3.28 H (0.9-3.2) K/mm3 [place] # (Auto) 0.7 H (0.1-0.6) K/mm3 Eos # (Auto) 0.1 (0-0.3) K/mm3 Baso # (Auto) 0.1 (0.0-0.1) K/mm3 Abs Immat Gran (auto) 0.08 H (0.00-0.031) K/mm3 Absolute Neuts (auto) 5.5 (1.3-6.7) K/mm3 Absolute Nucleated RBC 0.000 (0.0-0.012) K/mm3 Nucleated RBC % 0.0 (0.0-0.2) % Sodium 136 L (137-145) mmol/L Potassium 4.2 (3.4-5.0) mmol/L Chloride 105 (98-107) mmol/L Carbon Dioxide 25 (22-30) mmol/L Anion Gap 6 (4-12) mmol/L BUN 18 (9-20) mg/dL Creatinine 0.80 (0.7-1.3) mg/dL Estim Creat Clear Calc 135 ml/min Estimated GFR > 60 (59 - ) Glucose 225 H (65-110) mg/dL POC Capillary Glucose 229 H (65-105) mg/dl Lactic Acid 2.2 H (0.7-2.0) mmol/L Calcium 9.7 (8.4-10.2) mg/dL Magnesium 1.8 (1.6-2.3) mg/dL Total Bilirubin 0.4 (0.2-1.3) mg/dL AST 29 (17-59) U/L ALT 40 (6-50) U/L Alkaline Phosphatase 80 (38-126) U/L Troponin I < 0.012 (0.000-0.034) ng/mL Total Protein 7.0 (6.3-8.2) g/dL Albumin 4.5 (3.5-5.1) g/dL Lipase 265 (23-300) U/L Procalcitonin 0.1 ng/mL Urine Color Yellow (Yellow) Urine Appearance Clear (Clear) Urine pH 6.0 (5.0-9.0) Ur Specific Novelty 1.021 (1.001-1.035) Urine Protein Negative (Negative) mg/dL Urine Glucose (UA) 1+ H (Negative) mg/dL Urine Ketones Negative (Negative) mg/dL Ur Blood (Man) Negative (Negative) Urine Nitrate Negative (Negative) Urine Bilirubin Negative (Negative) Urine Urobilinogen 0.2 (<2.0) mg/dL Leukocyte Esterase Rfl Negative (Negative) HOMAR/UL Urine Opiates Screen Negative (Negative) Urine Methadone Screen Negative (Negative) Ur Barbiturates Screen Negative (Negative) Ur Phencyclidine Scrn Negative (Negative) Ur Amphetamine Screen Negative (Negative) U Benzodiazepines Scrn Negative (Negative) Urine Cocaine Screen Negative (Negative) U Cannabinoids Screen Negative (Negative) Ethyl Alcohol < 10 (<10) mg/dL 10/18/24 Range/Units 00:31 WBC (4.5-10.0) K/mm3 RBC (4.6-6.20) M/mm3 Hgb (14.0-18.0) g/dL Hct (42.0-52.0) % MCV (80-100) fl MCH (26-34) pg MCHC (32-36) g/dl RDW (11.5-14.5) % Plt Count (150-375) k/mm3 MPV (7.4-10.4) fl Immature Gran % (Auto) (0-0.5) % Neut % (Auto) (45.5-73.1) % Lymph % (Auto) (18.3-44.2) % [place] % (Auto) (2.6-8.5) % Eos % (Auto) (0-4.4) % Baso % (Auto) (0.2-1.2) % Lymph # (Auto) (0.9-3.2) K/mm3 [place] # (Auto) (0.1-0.6) K/mm3 Eos # (Auto) (0-0.3) K/mm3 Baso # (Auto) (0.0-0.1) K/mm3 Abs Immat Gran (auto) (0.00-0.031) K/mm3 Absolute Neuts (auto) (1.3-6.7) K/mm3 Absolute Nucleated RBC (0.0-0.012) K/mm3 Nucleated RBC % (0.0-0.2) % Sodium (137-145) mmol/L Potassium (3.4-5.0) mmol/L Chloride (98-107) mmol/L Carbon Dioxide (22-30) mmol/L Anion Gap (4-12) mmol/L BUN (9-20) mg/dL Creatinine (0.7-1.3) mg/dL Estim Creat Clear Calc ml/min Estimated GFR (59 - ) Glucose (65-110) mg/dL POC Capillary Glucose (65-105) mg/dl Lactic Acid 1.8 (0.7-2.0) mmol/L Calcium (8.4-10.2) mg/dL Magnesium (1.6-2.3) mg/dL Total Bilirubin (0.2-1.3) mg/dL AST (17-59) U/L ALT (6-50) U/L Alkaline Phosphatase (38-126) U/L Troponin I (0.000-0.034) ng/mL Total Protein (6.3-8.2) g/dL Albumin (3.5-5.1) g/dL Lipase (23-300) U/L Procalcitonin ng/mL Urine Color (Yellow) Urine Appearance (Clear) Urine pH (5.0-9.0) Ur Specific Novelty (1.001-1.035) Urine Protein (Negative) mg/dL Urine Glucose (UA) (Negative) mg/dL Urine Ketones (Negative) mg/dL Ur Blood (Man) (Negative) Urine Nitrate (Negative) Urine Bilirubin (Negative) Urine Urobilinogen (<2.0) mg/dL Leukocyte Esterase Rfl (Negative) HOMAR/UL Urine Opiates Screen (Negative) Urine Methadone Screen (Negative) Ur Barbiturates Screen (Negative) Ur Phencyclidine Scrn (Negative) Ur Amphetamine Screen (Negative) U Benzodiazepines Scrn (Negative) Urine Cocaine Screen (Negative) U Cannabinoids Screen (Negative) Ethyl Alcohol (<10) mg/dL ABG Data ABG results: 10/17/24 23:25 Puncture Site Left radial ABG pH 7.402 ABG pCO2 39.5 ABG pO2 77.2 L ABG PO2/FiO2 Ratio 3.68 ABG HCO3 24.0 ABG O2 Saturation 95.5 ABG O2 Content 18.8 ABG Base Excess -0.6 A-a Gradient 25.2 Oxyhemoglobin 90.6 Total Hemoglobin 14.7 O2 Delivery Device Room air O2 Liters/Min Not Reportable FiO2 21 Discharge Plan Discharge Clinical Impression: Pneumonia, Abdominal pain Patient Disposition: Home, Self-Care Condition: Stable Instructions: Antibiotic Form, Bacterial Pneumonia (ED), Abdominal Pain (ED) Prescriptions: New doxycycline hyclate 100 mg tablet 100 mg PO BID Qty: 14 0RF No Action levothyroxine 100 mcg tablet 75 mcg PO DAILY atorvastatin 40 mg Tablet 80 mg PO QHS Qty: 60 0RF fenofibrate 160 mg Tablet 160 mg PO DAILY Qty: 60 0RF Follow-up/Referrals: Leobardo,MD Robert [Primary Care Provider] - Time of Disposition: 02:48
--- NOTE | 2024-10-18 03:00 | PC.NURSE ---
Ambulated pt, pt ambulated with steady gait to restroom and stated he felt ok to leave
[2024-10-18] MEDS: DOXYCYCLINE HYCLATE 100 MG TABLET PO (03:09)
[2024-10-18 03:15] VITALS: BP 145/78; PULSE 77; RESP 15; O2SAT 96
== END 2024-10-18 03:17 | disposition home or self-care (01) ==
PROVIDERS: Emergency Provider Emergency Medicine; PCP Hospitalist
DX: J18.9 Pneumonia, unspecified organism (principal); R10.9 Unspecified abdominal pain; E66.9 Obesity, unspecified; Z68.36 Body mass index [BMI] 36.0-36.9, adult; E78.5 Hyperlipidemia, unspecified; E03.9 Hypothyroidism, unspecified; G47.33 Obstructive sleep apnea (adult) (pediatric); F17.210 Nicotine dependence, cigarettes, uncomplicated
CPT/HCPCS: 36415; 36600; 70450; 71275; 74177; 80053; 80307; 81003; 82077; 82805; 82948; 83605; 83690; 83735; 84145; 84484; 85018; 85025; 93005; 96361; 96374; 99284; A9270; J2405; J7030; Q9967

== ENCOUNTER 2025-09-29 14:02 | Emergency (ER) | payer SELFPAY ==
--- NOTE | ~2025-09-29 | US_ITS ---
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 Findings: Deep Venous System:Normal flow, augmentation and compressibility. No echogenic thrombus identified. The contralateral saphenofemoral junction appears unremarkable. Superficial Venous SystemNo superficial thrombophlebitis. Soft tissues: Soft tissues are unremarkable. Impression: Negative for DVT. Reviewed, dictated and finalized at location P. DOWELING MACHINE OPERATOR Impression: Negative for DVT.
[2025-09-29 14:46] VITALS: BP 125/86; PULSE 88; RESP 18; TEMP 36.5; O2SAT 97
--- NOTE | 2025-09-29 15:54 | ED_ITS ---
HPI - Animal Bite General Chief Complaint: Animal Bite <PHAM Arnold Last Filed: 09/29/25 16:03> Stated Complaint: dog bite 10 days ago <PHAM Arnold Last Filed: 09/29/25 16:03> Time Seen by Provider: 09/29/25 15:56 <PHAM Arnold Last Filed: 09/29/25 16:03> Focused HPI: Patient is a 40 y/o male who presents to the ED with c/o pain/numbness to R lower leg. Patient reports he was bit by a dog 10 days ago in his L lateral calf. 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 He was seen at urgent care, tetanus updated, and Rx'd course of clindamycin, which he finished today. Reports having increased pain and numbness throughout his left lower. He is able to ambulate. Mother at bedside is also concerned about patient needing rabies vaccine. Denies fevers. GENERAL: Well-appearing, well-nourished, and in no acute distress. HEAD: Normocephalic, atraumatic. CHEST: Clear to auscultation. ?No respiratory distress. HEART: Regular rate and rhythm.? MSK: Small circular puncture wound to left lateral calf with overlying scab. Appears to be healing well. No surrounding erythema or warmth. Decreased subjective sharp touch sensation throughout left lower extremity. Able to feel pressure. Good capillary refill. Able to wiggle toes. Peripheral pulses intact. NEURO: ?Alert and oriented x3. Patient screened in triage and initial orders placed.? ?Additional care and disposition to be based upon?diagnostic testing and treatment. <PHAM Arnold Last Filed: 09/29/25 16:03> Source: patient <PHAM Arnold Last Filed: 09/29/25 16:03> Mode of arrival: ambulatory <PHAM Arnold Last Filed: 09/29/25 16:03> Limitations: no limitations <PHAM Arnold Last Filed: 09/29/25 16:03> History of Present Illness HPI narrative: I agree with the above HPI. <Isabelstevenson Escalona APRN - Last Filed: 09/29/25 19:25> Related Data Home Medications: Home Medications ?Medication ?Instructions ?Recorded ?Confirmed ?Last Taken ?Type levothyroxine 100 mcg tablet 75 mcg PO DAILY 03/26/24 04/18/24 03/25/24 06:30 History <Marah Emery PA-C - Last Filed: 09/29/25 16:03> Allergies/Adverse Reactions: Allergies Allergy/AdvReac Type Severity Reaction Status Date / Time Penicillins Allergy Mild Rash Verified 10/17/24 20:40 <PHAM Arnold Last Filed: 09/29/25 16:03> PMFSH Past Medical History Medical History: Medical History BMI 35.0-35.9,adult Chest pain Compensated hypothyroidism Hyperlipidemia Obesity [place] (obstructive sleep apnea) Stress at work Tobacco abuse <PHAM Arnold Last Filed: 09/29/25 16:03> Surgical History Surgical History: Surgical History H/O excision of mass Excision of 4cm back mass on 08/16/22 S/P appendectomy Status post incision and drainage I&D complex perirectal abscess 12x5cm Dr. Marylu Marte <Marah Emery PA-C - Last Filed: 09/29/25 16:03> Family History Family History: Family History Mother Patient's mother is in good health Asthma Father Family history of arthritis Glioblastoma Sibling Patient's brother is in good health <PHAM Arnold Last Filed: 09/29/25 16:03> Social History Social History: Social History Social History: Smoking packs per day: 1 Smoking cigarettes per day: 20.0 Years smoked: 22 Smoking pack-years: 22.00 Smoking status: Current every day smoker Tobacco type: cigarettes and e-cigarettes/vaping Second hand tobacco smoke exposure: Yes Smoking end date: 02/03/21 Additional smoking assessment comments: Pt is vaping now. Alcohol intake: never Alcohol use details: Occasionally Substance use: never Substance use type: does not use Do You Feel Safe in your Home?: Yes Lack of Transportation: No Lack of Food: Never True Current Housing: I Have Housing Concerned About Future Housing: No Difficulty Paying Gas/Electric Bills: No Difficulty Paying for Meds: No Currently Unemployed: No Education: High School Diploma/GED Difficulty w/ Childcare or Family Care: No Living arrangements: with family Occupation/Education: occupation Gender identity (if verbalized by the patient): Male Sexual Orientation (if Verbalized by the Patient): Straight or Heterosexual Spiritual care concerns: No <PHAM Arnold Last Filed: 09/29/25 16:03> Course Vital Signs Vital signs: Vital Signs Temperature 36.5 C 09/29/25 14:46 Pulse Rate 88 09/29/25 14:46 Respiratory Rate 18 09/29/25 14:46 Blood Pressure 125/86 09/29/25 14:46 Pulse Oximetry 97 09/29/25 14:46 Temperature 36.5 C 09/29/25 14:46 Pulse Rate 89 09/29/25 18:57 Respiratory Rate 18 09/29/25 18:57 Blood Pressure 134/86 09/29/25 18:57 Pulse Oximetry 98 09/29/25 18:57 <PHAM Arnold Last Filed: 09/29/25 16:03> Vital Signs Temperature 36.5 C 09/29/25 14:46 Pulse Rate 88 09/29/25 14:46 Respiratory Rate 18 09/29/25 14:46 Blood Pressure 125/86 09/29/25 14:46 Pulse Oximetry 97 09/29/25 14:46 Temperature 36.5 C 09/29/25 14:46 Pulse Rate 89 09/29/25 18:57 Respiratory Rate 18 09/29/25 18:57 Blood Pressure 134/86 09/29/25 18:57 Pulse Oximetry 98 09/29/25 18:57 <Isabel Escalona APRN - Last Filed: 09/29/25 19:25> MDM - Animal Bite MDM Narrative Medical decision making narrative: MSE by ELISABETH in triage. <Marah Emery PA-C - Last Filed: 09/29/25 16:03> MSE by ELISABETH in triage. Patient is a 40 y/o male who presents to the ED with c/o pain/numbness to R lower leg. Patient reports he was bit by a dog 10 days ago in his L lateral calf. 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 He was seen at urgent care, tetanus updated, and Rx'd course of clindamycin, which he finished today. Reports having increased pain and numbness throughout his left lower. He is able to ambulate. Mother at bedside is also concerned about patient needing rabies vaccine. Denies fevers. Labs Ordered: None necessary Imaging Ordered: Left lower Ultrasound venous Doppler Medications Ordered: Gabriels PO Results: Pt's US indicates deep Venous System:Normal flow, augmentation and compressibility. No echogenic thrombus identified. The contralateral saphenofemoral junction appears unremarkable. No superficial thrombophlebitis. Soft tissues: Soft tissues are unremarkable. Diagnosis: dog bite, L LE swelling/pain Consults: 1725-Infectious disease nurse, Bebe Davila. She hurts she will follow-up with patient tomorrow. Sruthi suggest dog should be evaluated by animal control before patient receives rabies vaccine. She reports she will speak with the health department tomorrow. Patient Education/Shared MDM: Results of imaging shared with patient and his mother. Risks versus benefits were discussed at length regarding expense of vaccine versus necessity. It was explained to patient and his mother that most dogs in this area do not have rabies, so immunization is not typically indicated. GROUND WOOD SUPERVISOR advised patient discuss options with Infectious Disease nurse before proceeding with treatment. Patient endorses improvement of symptoms following medication administration. Patient was strongly advised to call his workman's comp to find out how a rabies vaccine cost would be covered. He should follow-up with his PCP as soon as possible. Patient will not be discharged home with any new prescriptions. Strict return precautions provided. Patient verbalized understanding and is in agreement with plan. Vital signs stable at time of discharge. All questions answered. <Isabel Escalona APRN - Last Filed: 09/29/25 19:25> Differential Diagnosis Differential diagnosis: Likely bite by animal, dog bite and rabies contact <Isabel Escalona APRN - Last Filed: 09/29/25 19:25> Imaging Data Attestation: I personally reviewed and interpreted this imaging study as follows: <Isabel Escalona APRN - Last Filed: 09/29/25 19:25> Radiologist's impression: Impressions Venous Doppler Study 09/29/25 17:21 Impression: Negative for DVT. <Isabel Escalona APRN - Last Filed: 09/29/25 19:25> Discharge Plan Discharge Clinical Impression: Dog bite, Bite by animal, Rabies, need for prophylactic vaccination against <Marah Emery PA-C - Last Filed: 09/29/25 16:03> Patient Disposition: Home <PHAM Arnold Last Filed: 09/29/25 16:03> Condition: Stable <PHAM Arnold Last Filed: 09/29/25 16:03> Instructions: Antibiotic Form, Animal Bite (ED) <PHAM Arnold Last Filed: 09/29/25 16:03> Additional Instructions: Please return to the ER with any worsening symptoms. Follow-up with the health department and your primary care provider as soon as possible. The [facility] infectious disease nurse will call you tomorrow morning. If you do not hear from her please call the [facility] line and ask to speak to the Infection Disease nurse. Please take all medications as prescribed, including regularly scheduled medications. You may take Tylenol as needed for pain control. <PHAM Arnold Last Filed: 09/29/25 16:03> Patient Language: Japanese <PHAM Arnold Last Filed: 09/29/25 16:03> Prescriptions: No Action levothyroxine 100 mcg tablet 75 mcg PO DAILY atorvastatin 40 mg Tablet 80 mg PO QHS Qty: 60 0RF fenofibrate 160 mg Tablet 160 mg PO DAILY Qty: 60 0RF doxycycline hyclate 100 mg tablet 100 mg PO BID Qty: 14 0RF <Marah Emery PA-C - Last Filed: 09/29/25 16:03> Follow-up/Referrals: Leobardo,MD Robert [Primary Care Provider, Unknown] Bebe Davila RN [Registered Nurse, Nursing] Referral Note: Infectious Disease <Marah Emery PA-C - Last Filed: 09/29/25 16:03> Stand Alone Forms: Work/School Release IP <Marah Emery PA-C - Last Filed: 09/29/25 16:03> Time of Disposition: 18:09 <Marah Emery PA-C - Last Filed: 09/29/25 16:03> 18:09 <Isabel Escalona APRN - Last Filed: 09/29/25 19:25>
[2025-09-29] MEDS: HYDROcodone/acetaminophen (*CRX) 5-325 MG TABLET 1 TAB PO (18:52)
[2025-09-29 18:57] VITALS: BP 134/86; PULSE 89; RESP 18; O2SAT 98
--- OUTSIDE RECORDS SUMMARY | 2025-09-30 04:23 | XMS_ITS | Clinical Summary ---
Author Organization [facility] Address [address] [place] [address] Care Team Providers Care Labourers Name Role Phone Robert Booth MD Primary Care Provider [phone] Allergies Active Allergy Reactions Criticality Noted Date Comments Penicillins Rash Medium 08/24/2020 Medications benzonatate (TESSALON) 100 mg capsuleIndicati ons:Cough Take 1 capsule (100 mg total) by mouth 3 (three) times a day as needed for cough 42 capsule 5 Active metFORMIN (GLUCOPHAGE) 500 mg tablet Take 2 tablets (1,000 mg total) by mouth 2 (two) times a day with meals 360 tablet 3 5 11/21/19 26 Active atorvastatin (LIPITOR) 40 mg tablet TAKE 1 TABLET BY MOUTH EVERY DAY AT BEDTIME 90 tablet 5 Active fenofibrate (TRIGLIDE) 160 mg tablet Take 1 tablet by mouth once daily 90 tablet 5 Active glipiZIDE (GLUCOTROL) 5 mg tabletIndicatio ns:Type 2 diabetes mellitus without complication, without long-term current use of insulin (HCC) TAKE 1 TABLET BY MOUTH TWICE DAILY (BEFORE BREAKFAST AND LUNCH) 180 tablet 5 Active levothyroxine (SYNTHROID) 100 mcg tablet TAKE 1 TABLET BY MOUTH EARLY IN THE MORNING BEFORE BREAKFAST 90 tablet 5 Active nirmatrelvir 300 mg-ritonavir 100 mg (Paxlovid) tablets,dose pack tablets in a dose packIndications :COVID-19 Take 300 mg nirmatrelvir (2 x 150 mg tablets) with 100 mg ritonavir (1 x 100 mg tablet) with all three tablets taken together by mouth twice daily for 5 days 30 tablet Active Active Problems Problem Noted Date Diagnosed Date Morbid obesity with BMI of 40.0-44.9, adult 07/2025 Assessment & Plan (11/20/2024 7:38 PM GRAIN CLEANER AND TRANSFER OPERATOR): BMI 40.35. Discussed making dietary changes, trying to make healthier food choices including portion control. Encourage moderate intensity exercise 30 minutes 5 days per week. He was counseled on the importance of obtaining a healthy weight and the risks of obesity. Weight loss recommended. Foot callus 11/20/2024 Assessment & Plan (11/20/2024 7:39 PM GRAIN CLEANER AND TRANSFER OPERATOR): Discussed diagnosis. Can try mole skin to prevent it from rubbing in his shoe. Continue to monitor and report any changes. Nicotine dependence due to vaping tobacco produc t 11/20/2024 Assessment & Plan (11/20/2024 7:40 PM GRAIN CLEANER AND TRANSFER OPERATOR): Counseled on vaping cessation. Patient reports that he is trying to cut back. Sleep apnea treated with con tinuous positive airway pressure (CPAP) 11/20/2024 Abscess and cellulitis of gluteal region 024 Assessment & Plan (09/22/2024 9:46 AM GRAIN CLEANER AND TRANSFER OPERATOR): Based on history and location, this likely represents fistula in ano- Would not be a surgical candidate at this time due to timeline of symptoms and antibiotics. No further treatment is needed at this time except to finish oral antibiotics, discussed when symptoms recur to immediately call our office for visit. Patient is understanding. Assessment & Plan (09/01/2024 8:19 PM CDT): Plan of care as discussed. Referral to surgeon. Chronic elbow pain, left 07/21/2024 Assessment & Plan (07/21/2024 7:23 PM CDT): Rest, Ice, Compression, Elevation Gently stretch and massage the muscles Options for management of pain as discussed Use of heat/ice/exercises Use of medication and possible side effects as discussed-- he prefers to continue taking ibuprofen OTC Seek emergent care if symptoms worsen acutely Follow up if symptoms are not resolving Type 2 diabetes mellitus wit hout complication, without long-term current use of insulin 05/13/2024 Assessment & Plan (09/01/2024 8:22 PM CDT): Hemoglobin A1c was 7.3 % on 08/18/2024. Patient is to keep a close eye on his blood glucose with having this infection. Assessment & Plan (07/21/2024 7:18 PM CDT): Monitor blood glucose as discussed, keep log and bring log to your next office visit Continue present medications Healthy low carbohydrate/ low salt/ low fat diet Check feet daily and report any alterations Get annual dilated eye examinations, this is very important- getting retina scan done today Exercise routinely/ keep active Avoid smoking/second-hand smoke exposure Get annual flu shot in the fall Come to office for POCT hemoglobin A1c in 1 month Follow up as scheduled Assessment & Plan (05/13/2024 3:41 PM CDT): A1c measure 8.4; continues to have elevated blood sugars Encourage low-carbohydrate diet Start metformin 500 mg b.i.d., glipizide 5 mg b.i.d. Acquired hypothyroidism 05/13/2024 Assessment & Plan (07/21/2024 7:19 PM CDT): Continue levothyroxine 100 mcg daily Assessment & Plan (05/13/2024 3:41 PM CDT): Stable, energy levels appropriate Continue levothyroxine 100 mcg daily; will check TSH Pilonidal cyst 05/13/2024 Assessment & Plan (05/13/2024 3:41 PM CDT): Small cyst at topical gluteal cleft; concern for pilonidal cyst; will refer to general surgery for evaluation Class 2 severe obesity with serious comorbidity and body mass index (BMI) of 37.0 to 37.9 in adult 05/13/2024 Assessment & Plan (07/21/2024 7:20 PM CDT): BMI 39.21.Discussed making dietary changes, trying to make healthier food choices including portion control. Encourage moderate intensity exercise 30 minutes 5 days per week. He was counseled on the importance of obtaining a healthy weight and the risks of obesity. Weight loss recommended. Assessment & Plan (05/13/2024 3:42 PM CDT): Patient has begun working on dietary changes, starting exercise plan with mother Encouraged continued work to lose weight in order to reduce long-term health effects Moderate tobacco use disorder 05/13/2024 Assessment & Plan (07/21/2024 7:20 PM CDT): Counseled on smoking cessation. He is not interested in quitting at this time Assessment & Plan (05/13/2024 3:42 PM CDT): Stable, improving; patient reports he is down to just a few cigarettes per day; encouraged continued work towards complete cessation Thyroid condition 11/12/2021 Thyroid condition 11/12/2021 Back pain 06/20/2016 Enlarged liver 03/23/2016 Anemia 01/18/2016 Dyslipidemia 01/18/2016 Assessment & Plan (07/21/2024 7:17 PM CDT): Continue to limit fats in diet and take atorvastatin 40 mg at HS and fenofibrate 160 mg daily Assessment & Plan (05/13/2024 3:41 PM CDT): Elevated triglycerides and LDL; continue fenofibrate and atorvastatin 40 mg daily Hepatosplenomegaly 01/18/2016 Assessment & Plan (05/13/2024 3:42 PM CDT): Unclear etiology; patient has fatty liver disease; will recheck imaging at future date to evaluate for changes with improvement on weight control Encounters Date Type Department Care Team Description 09/07/2025 3:15 PM CDT Telemedicine [facility] Virtual Care [address] [place] [phone] Justen Kimble MD COVID-19 virus infection (Primary Dx) 09/07/2025 Nurse Triage [facility] [address] [address] Robert Booth MD from Last 3 Months Immunizations Immunization Administration Dates Next Due Influenza, Unspecified 11/18/2024(Deferr ed: Patient Refused),08/18/2024(Deferred: Patient Refused),07/17/2024(Deferred: Patient Refused),05/13/2024(Deferred: Patient Refused),08/20/2023(Deferred: Patient Refused),08/12/2023(Deferred: Patient Refused),12/01/2015 Tdap 01/12/2016 Surgical History Surgery Date Site/Laterality Comments APPENDECTOMY 11/12/2001 - 11/11/2002 TONSILLECTOMY 11/12/1995 - 11/11/1996 CYST REMOVAL Left Medical History Medical History Date Comments Diabetes mellitus Pneumonia 02/2024 Elevated triglycerides with high cholesterol 2023 Thyroid condition 2021 Hypothyroidism Family History Medical History Relation Name Comments PTSD Brother Suicide Completion Brother Brain cancer Father Diabetes Father Hypertension Father glioblastoma Father Deep vein thrombosis Mother Hypertension Mother Hypothyroidism Mother Osteopenia Mother Skin cancer Other Maternal Family Relation Name Status Comments Brother Father Mother Other Maternal Family Social History Tobacco Use Types Packs/Day Years Used Date Smoking Tobacco: Former Cigarettes 0 07/05/2023 - 11/12/2012 Vaping Started: 07/05 Smokeless Tobacco: Never Tobacco Cessation:Counseling Given: Not Answered AUDIT-C Answer Date Recorded Q1: How often do you have a drink containing alc ohol? Monthly or less 05/13/2024 Q2: How many drinks containi ng alcohol do you have on a typical day when you are drinking? 1 or 2 05/13/2024 Q3: How often do you have si x or more drinks on one occasion? Never 05/13/2024 PHQ-2 Answer Date Recorded PHQ-2 Total Score (If total score is 3 or more points, staff should administer the PHQ-9) 0 05/13/2024 Personal Safety Answer Date Recorded Have you ever been in or are you currently in a harmful physical or emotional relationship or is someone making you feel afraid or unsafe? Denies 06/26/2023 Sex and Gender Information Value Date Recorded Sex Assigned at Not on file Legal Sex Male 1:24 PM GRAIN CLEANER AND TRANSFER OPERATOR Gender Identity Not on file Sexual Orientation Not on file Last Filed Vital Signs Vital Sign Reading Time Taken Comments Blood Pressure 128/84 02/05/2025 1:55 PM CDT Pulse 77 02/05/2025 1:55 PM CDT Temperature 36.3 C (97.3 F) 02/05/2025 1:55 PM CDT Respiratory Rate 18 11/13/2024 3:36 PM GRAIN CLEANER AND TRANSFER OPERATOR Oxygen Saturation 94% 02/05/2025 1:55 PM CDT Inhaled Oxygen Concentration - - Weight 118.4 kg (261 lb 1.6 oz) 02/05/2025 1:55 PM CDT Height 170.2 cm (5' 7) 02/05/2025 1:55 PM CDT Body Mass Index 40.89 02/05/2025 1:55 PM CDT Plan of Treatment Health Maintenance Due Date Last Done Comments Varicella Vaccines (1 of 2 - 13+ 2-dose series) 1999 Regular Well Visit/Exam 18-64 2004 Pneumococcal vaccine <65 (1 of 2 - PCV) 2005 HPV Vaccines (1 - 3-dose SCD M series) 2013 Albumin Creatinine Ratio, Urine 05/13/2025 Depression Screening 05/13/2025 05/13/2024 Hemoglobin A1C 05/20/2025 11/20/2024, 10/0 05/2024, 05/13/2024 Covid-19 Vaccine (3 - 2024-2 6 season) 2025 09/15/2021, 08/25/2021 Influenza Vaccine (#1) 2025 12/01/2015 Dilated Eye Exam 07/21/2025 07/21/2024 Foot Exam 07/21/2025 07/21/2024 Lipid Panel 11/20/2025 11/20/2024, 05/13/2024 eGFR 11/20/2025 11/20/2024, 07/0 12/2023, 06/27/2023, Additional history exists DTaP/Tdap/Td Vaccine (2 - Td or Tdap) 01/11/2026 01/12/2016 Hepatitis B Screening Completed 05/13/2024 Hepatitis C Screening Completed 05/13/2024 Procedures Procedure Name Priority Date/Time Associated Diagnosis Comments HEMOGLOBIN A1C Routine 11/20/2024 8:35 PM GRAIN CLEANER AND TRANSFER OPERATOR Type 2 diabetes mellitus without complication, without long-term current use of insulin (HCC) EGFR Routine 11/20/2024 11:34 AM GRAIN CLEANER AND TRANSFER OPERATOR Type 2 diabetes mellitus without complication, without long-term current use of insulin (HCC) LIPID PANEL Routine 11/20/2024 11:34 AM GRAIN CLEANER AND TRANSFER OPERATOR Dyslipidemia RETINAVUE SCANNER - OU - BOTH EYES Routine 07/21/2024 Type 2 diabetes mellitus without complication, without long-term current use of insulin (HCC) HEPATITIS C ANTIBODY Routine 05/13/2024 11:22 AM CDT Encounter for hepatitis C screening test for low risk patient ALBUMIN CREATININE RATIO, URINE Routine 05/13/2024 11:22 AM CDT Type 2 diabetes mellitus without complication, without long-term current use of insulin (HCC) from Last 3 Months or Most Recently Relevant to Health Maintenance Results * (ABNORMAL) Hemoglobin A1c (11/20/2024 8:35 PM GRAIN CLEANER AND TRANSFER OPERATOR) Hgb A1C 7.1(H) 4.0 - 5.6 % Estimated Average Glucose 157 mg/dL ANDIE WERNER Comment: The ADA recommends reporting an estimated Average Glucose (eAG) with all Hemoglobin A1c results using the equation derived from a study of 507 normal and diabetic adults. Minority populations were underrepresented and children were not included. (Diabetes Care 31:0609-6083, 2008). The eAG is not equivalent to a fasting glucose. Blood 11/20/2024 8:35 PM GRAIN CLEANER AND TRANSFER OPERATOR 11/20/2024 8:35 PM GRAIN CLEANER AND TRANSFER OPERATOR us Rosetta Santa NP LAB BLOOD ORDERABLES Final Re sult ANDIE WERNER [id number] Department [place] [address] * eGFR (11/20/2024 11:34 AM GRAIN CLEANER AND TRANSFER OPERATOR) eGFR >90 >=60 mL/min/1. 73 m2 Comment: Interpretive Data Reference Interval Normal >/= 90 mL/min/1.73m2 Mildly decreased* 60 - 89 mL/min/1.73m2 Mildly to moderately decreased 45 - 59 mL/min/1.73m2 Moderately to severely decreased 30 - 44 mL/min/1.73m2 Severely decreased 15 - 29 mL/min/1.73m2 Kidney Failure < 15 mL/min/1.73m2 *Relative to young adult level Estimated glomerular filtration rate is determined by the 2020 CKD-EPI equation recommended by the National Kidney Foundation (A Unifying Approach to GFR Estimation: Recommendations of the NKF-ASK Task Force on Reassessing the Inclusion of Race in Diagnosing Kidney Disease, JASN 2020). The CKD-EPI equation should not be used for patients with unstable renal function and has not been validated in children and those over 70. Current interpretive data was last reviewed 2021. Blood 11/20/2024 11:3 4 AM GRAIN CLEANER AND TRANSFER OPERATOR 11/20/2024 8:34 PM GRAIN CLEANER AND TRANSFER OPERATOR us Rosetta Santa NP LAB BLOOD ORDERABLES Final Re sult ANDIE WERNER [id number] [address] Department [place] [address] * (ABNORMAL) Lipid panel (11/20/2024 11:34 AM GRAIN CLEANER AND TRANSFER OPERATOR) Cholesterol 162 30 - 199 mg/dL Comment: Interpretive Data Ages < or = 19 years Acceptable: <170 mg/dL Borderline high: 170-199 mg/dL High: >or= 200 mg/dL Ages > or = 20 years Desirable: <200 mg/dL Borderline high: 200-239 mg/dL High: >or= 240 mg/dL Literature References: 1. Expert Panel on Integrated Guidelines for Cardiovascular Health and Risk Reduction in Children and Adolescents. Pediatrics 2011;128:S213 2. NCEP Expert Panel. Circulation 2004;110:227 Current Interpretive Data was last revised on 2018. Triglycerides 320(H) <=149 mg/dL ANDIE Comment: Interpretive Data Ages < or = 9 years Acceptable: <75 mg/dL Borderline high: 75-99 mg/dL High: >or= 100 mg/dL Ages 10 to 20 years Acceptable: <90 mg/dL Borderline high: 90-129 mg/dL High: >or= 130 mg/dL Ages > or = 20 years Desirable: <150 mg/dL Borderline high: 150-199 mg/dL High: 200-499 mg/dL Very high: >or= 499 mg/dL Literature References: 1. Expert Panel on Integrated Guidelines for Cardiovascular Health and Risk Reduction in Children and Adolescents. Pediatrics 2011;128:S213 2. NCEP Expert Panel. Circulation 2003;110:227 Current Interpretive Data was last revised on 2018. HDL 30(L) >=40 mg/dL ANDIE Comment: Interpretive Data Ages < or = 19 years Acceptable: >45 mg/dL Borderline low: 40-45 mg/dL Low: <40 mg/dL Ages > or = 20 years Desirable: >or= 60 mg/dL Low: <40 mg/dL Literature References: 1. Expert Panel on Integrated Guidelines for Cardiovascular Health and Risk Reduction in Children and Adolescents. Pediatrics 2011;128:S213 2. NCEP Expert Panel. Circulation 2003;110:227 Current Interpretive Data was last revised on 2018. LDL, calculated 80 <=129 mg/dL ANDIE Comment: Interpretive Data Ages < or = 19 years Acceptable: <110 mg/dL Borderline high: 110-129 mg/dL High: >or= 130 mg/dL Ages > or = 20 years Optimal: <100 mg/dL Near optimal: 100-129 mg/dL Borderline high: 130-159 mg/dL High: >160 mg/dL Calculated using the Lew LDL-C estimating equation. This equation was implemented on 2024. Prior to this date LDL-C was estimated using the Friedewald equation. Literature References: 1. Expert Panel on Integrated Guidelines for Cardiovascular Health and Risk Reduction in Children and Adolescents. Pediatrics 2011;128:S213 2. NCEP Expert Panel. Circulation 2003;110:227 3. Lew Giordano et al. RONNY Cardiol. 2019March 12;5(5):540-548. doi: 10.1001/[email or web address] Current Interpretive Data was last revised on 2024. Non-HDL Cholesterol 132 mg/dL ANDIE WERNER Comment: Interpretive Data Ages < or = 19 years Acceptable: <120 mg/dL Borderline high: 120-144 mg/dL High: >145 mg/dL Ages > or = 20 years When triglycerides are >200 mg/dL, Non-HDL cholesterol is a secondary target of therapy with treatment goals that are 30 mg/dL greater than the LDL cholesterol target. Literature References: 1. Expert Panel on Integrated Guidelines for Cardiovascular Health and Risk Reduction in Children and Adolescents. Pediatrics 2011;128:S213 2. NCEP Expert Panel. Circulation 2004;110:227 Current Interpretive Data was last revised on 2018. Chol/HDL ratio 5 ANDIE Blood 11/20/2024 11:3 4 AM GRAIN CLEANER AND TRANSFER OPERATOR 11/20/2024 8:28 PM GRAIN CLEANER AND TRANSFER OPERATOR Rosetta Santa NP LAB BLOOD ORDERABLES Final Re sult ANDIE [id number] [address] Department [place] [address] * RetinaVue Scanner - OU - Both Eyes (07/21/2024) Anatomical Region Laterality Modality Head Fundus Photograp hy Retina 07/21/2024 Rosetta Santa NP OPHTH PHOTOGRAPHY Final Resul t * Hepatitis C antibody Blood (05/13/2024 11:22 AM CDT) Hep C Ab Nonreactive Nonreactive Comment: Interpretive Data Nonreactive: Antibodies to HCV not detected. Does NOT exclude the possibility of recent exposure to HCV. Equivocal: Equivocal for HCV antibodies. Supplemental molecular testing will be automatically performed to determine infection status in accordance with current CDC screening recommendations. Reactive: Positive for HCV antibodies. This may represent current or past HCV infection. Supplemental molecular testing will be automatically performed to determine current infection status in accordance with current CDC screening recommendations. Interpretive data was last revised on 2020. Testing performed by: [facility], [address] [place] [address]., [id number] Blood 05/13/2024 11:2 2 AM CDT 05/13/2024 4:35 PM CDT Robert Booth MD LAB MICROBIOLOGY - GENERA L ORDERABLES Final Result ANDIE DOW (QUIANA) [address] [facility] [place] [address] * Albumin Creatinine Ratio, Urine (05/13/2024 11:22 AM CDT) Albumin Ur <12.0 mg/L Comment: Interpretive Data No reference range established. Current interpretive data was last revised 2019. Testing performed by: [facility], [address] [place] [address]., [id number] Creatinine Ur 72.8 mg/dL ANDIE DOW (QUIANA) Comment: Interpretive Data No reference range established. Current interpretive data was last revised 2019. Testing performed by: [facility], [address] [place] [address]., [id number] Albumin Creatinine Ratio, Ur <16 1 - 29 mg/g ANDIE DOW (QUIANA) Comment:Testing performed by : [facility], [address] [place] [address]., [id number] Urine 05/13/2024 11:2 2 AM CDT 05/13/2024 4:35 PM CDT us Robert Booth MD LAB URINE ORDERABLES Rochelle l Result ANDIE DOW (QUIANA) [address] [facility] [place] [address] from Last 3 Months or Most Recently Relevant to Health Maintenance Insurance IDPA Care Teams Labourers Relationship Specialty Start Date End Date Robert Booth MD [address] [place] [address] PCP - General Family Medicine 05/13/24
--- OUTSIDE RECORDS SUMMARY | 2025-09-30 04:24 | XMS_ITS | Data Portability ---
Author Organization JAVAD STACEYStephanie Salgado Address [address] [place] [address] Assessment No assessment recorded. Plan of Treatment Reminders Order Date Submit Date Provider Last Modified By Organization Details Last Modified Time Details Appointments None recorded. Lab HbA1c (hemoglobin A1c), blood 2015 016 [facility], [address] [place] [address], [address], [place], [address], 6 15:17:20 lipid panel, serum 2015 016 [facility], [address] [facility], [address], [place], [address], 6 15:17:19 ALT (alanine aminotransf erase), serum or plasma 2015 016 [facility], [address] [place] [address], [address], [place], [address], 6 15:17:22 AST/SGOT (aspartate aminotransf erase), serum or plasma 2015 016 [facility], [address] [place] [address], [address], [place], [address], 6 15:17:21 unlisted lab - TSH reflex to [id number] 2015 016 [facility], [address] [place] [address], [address], [place], [address], 6 15:17:20 AST/SGOT (aspartate aminotransf erase), serum or plasma 2015 016 [facility], [address], [address], [place], [address], 6 09:14:18 HbA1c (hemoglobin A1c), blood 2015 016 [facility], [address], [address], [place], [address], 6 09:14:18 glucose, fasting, QN, serum or plasma 2015 016 [facility], [address], [address], [place], [address], 6 09:14:19 lipid panel, serum 2015 016 [facility], [address], [address], [place], [address], 6 09:14:19 ALT (alanine aminotransf erase), serum or plasma 2015 016 [facility], [address], [address], [place], [address], 6 09:14:19 CBC 2015 016 JULIO CÉSAR [facility], [address], [address], [place], [address], 6 09:18:43 drug screen, 5 drugs, urine 2015 016 [facility] C[facility], [address], [address], [place], [address], 6 09:18:43 urinalysis, complete 2015 016 J[facility]IO C[facility]SAR [place], [address], [address], [place], [address], 6 09:18:44 hepatitis B genotype, serum 2015 016 [facility]IO C[facility]SAR [facility], [address], [address], [place], [address], 6 09:18:45 hepatitis B core IgM Ab, qual, serum or plasma 2015 016 JULIO CÉSAR [place], [address], [address], [place], [address], 6 09:18:48 hepatitis B DNA, quantitativ e, serum 2015 016 [facility], [address], [place], [address], 6 09:18:45 HBsAg (hepatitis B surface Ag), EIA, serum 2015 016 [facility] C[facility]SAR [facility], [facility] [address], [address], [place], [address], 09:18:46 lipid panel, serum 2015 016 J[facility]IO CÉSAR [facility], [facility] [address] [address], [address], [place], [address], 6 09:18:42 unlisted lab - TSH reflex to t4f 2015 JULIO CÉSAR [place], [address], [address], [place], [address], 6 09:18:46 AST/SGOT (aspartate aminotransf erase), serum or plasma 2015 016 [facility] C[facility], [address], [address], [place], [address], 6 09:18:47 ALT (alanine aminotransf erase), serum or plasma 2015 016 [facility]IO C[facility]SAR [facility], [address], [address], [place], [address], 6 09:18:47 hepatitis panel (A+B+C), acute, serum 2015 016 [facility] C[facility], [address], [address], [place], [address], 6 10:17:38 rickettsial disease panel, serum 2015 016 [facility], [address] [facility] [address], [address], [place], [address], 6 15:17:46 heterophile Ab, qualitative latex agglutinati on, serum 2015 016 [facility]IO CÉSAR [facility], [address], [address], [place], [address], 6 15:17:50 TSH, serum or plasma 2015 016 [facility], [address] [facility] [address], [address], [place], [address], 6 15:17:49 HIV (1+2) Ab screen, serum 2015 016 [facility], [address], [address], [place], [address], 6 20:38:08 hepatitis C Ab, signal-to-c utoff, serum or plasma 2015 016 [facility], [address], [address], [place], [address], 6 15:17:50 CBC 2015 016 [facility], [address] [facility], [address], [place], [address], 6 15:17:43 lipid panel, serum 2015 016 [facility], [facility], [address], [place], [address], 6 15:17:41 CMP, serum or plasma 2015 016 [facility], [facility], [address], [place], [address], 6 15:17:44 HbA1c (hemoglobin A1c), blood 2015 016 [facility], [address], [address], [place], [address], 6 15:17:48 drug screen, 5 drugs, urine 2015 016 [facility] C[facility], [address] [facility] [address], [address], [place], [address], 6 15:17:42 unlisted lab - influenza A/B PCR rfx H1N1 2015 016 [facility], [address] [facility], [address], [place], [address], 6 20:38:08 vitamin B12 + folate, serum or blood 2015 016 [facility], [address] [facility], [address], [place], [address], 6 15:17:47 iron + total iron-bindin g capacity (TIBC), serum 2015 016 [facility], [address] [facility], [address], [place], [address], 6 15:17:45 ferritin, serum or plasma 2015 016 [facility], [address] [facility], [address], [place], [address], 6 15:17:51 Referral hematologis t referral - Splenomegal y, recent infectious mononucleos is. 2015 016 JULIO CÉSAR Not available 6 17:41:58 colonoscopy referral - Hematochezi a, FHx of Colon Cancer 2015 016 JULIO CÉSAR Not available 6 09:41:04 Procedures None recorded. Surgeries None recorded. Imaging CT, abdomen and pelvis - CT scan with IV and po contrast, please. Worsening LUQ pain. Splenomegal y, recent Infectious Mononucleos is 2015 016 [facility] (Imaging), [facility] [address] [facility], [place], [address], 6 14:17:47 ultrasound, abdominal - Splenomegal y on CT scan 2015 016 Not available 13:51:33 Medication Orders fenofibrate micronized 134 mg capsule 2015 016 [id number], [address] [facility], [place], [place], [id number], 6 12:40:22 tramadol 50 mg tablet 2015 016 [id number], [address] [place], [place], [id number], 6 12:40:22 Patient TargetsNo targets recorded. Patient InstructionsNo instructions recorded. Reason for Referral Colonoscopy Referral for Hem atochezia Hematochezia, FHx of Colon Cancer Referring Physician: Bita Guadalupe, Internal Medicine, Encounter Date: 01/12/2016 Splenomegaly, recent infecti ous mononucleosis. Referring Physician: Bita Guadalupe, Internal Medicine, Encounter Date: 01/12/2016 Results Created Date Observation Date Name Description Value Unit Range Abnormal Flag Note LastModifiedBy Organization Detail LastModifiedTime 12/15/19 16 12/16/2015 hepat itis panel (A+B+ C), acute , serum hep A Ab, IgM NEGATI VE negati ve Not Available [facility] ([facility]) [address] [place], [address], 12/16/2015 10:17:38 12/15/19 16 12/16/2015 hepat itis panel (A+B+ C), acute , serum HBsAg screen NEGATI VE negati ve Not Available [facility] ([facility]) [address] [place], [address], 12/16/2015 10:17:38 12/15/19 16 12/16/2015 hepat itis panel (A+B+ C), acute , serum hep B core Ab, IgM NEGATI VE negati ve Not Available [facility] ([facility]) [address] [place], [address], 12/16/2015 10:17:38 12/15/19 16 12/16/2015 hepat itis panel (A+B+ C), acute , serum hep C virus Ab <0.1 S/co_ ratio 0.0-0. 9 NEGAT LINNEA: < 0.8 INDET ERMIN ATE: 0.8 - 0.9 POSIT LINNEA: > 0.9 THE CDC RECOM MENDS THAT A POSIT LINNEA HCV ANTIB JACKY RESUL T BE FOLLO WED UP WITH A HCV NUCLE IC ACID AMPLI FICAT ION TEST (4935 13). Not Available [facility] ([facility]) [address] [place], [address], 12/16/2015 10:17:38 12/17/19 16 12/18/2015 lipid panel , serum cholesterol, total 235 mg/dL 100-19 9 above high normal Not Available [facility] ([facility]) [address] [place], [address], 12/21/2015 15:17:41 12/17/19 16 12/18/2015 lipid panel , serum triglyceride s 1126 mg/dL 0-149 alert high RESUL TS CONFI RMED ON DILUT ION. Not Available [facility] ([facility]) [address] [place], [address], 12/21/2015 15:17:41 12/17/19 16 12/18/2015 lipid panel , serum LDL chol. (direct) 46 mg/dL 0-99 Not Available [facility]) [address] [place], [address], 12/21/2015 15:17:41 12/17/19 16 12/18/2015 lipid panel , serum HDL cholesterol 21 mg/dL >39 below low normal ACCOR DING TO ATP-I II GUIDE LINES , HDL-C >59 MG/DL IS CONSI DERED A NEGAT LINNEA RISK FACTO R FOR CHD. Not Available [facility] ([facility]) [address] [place], [address], 12/21/2015 15:17:41 12/17/19 16 12/18/2015 lipid panel , serum VLDL cholesterol andreea COMMEN T mg/dL 5-40 THE CALCU LATIO N FOR THE VLDL DELIA STERO L IS NOT VALID WHEN TRIGL YCERI DE LEVEL IS >400 MG/DL . Not Available [facility] ([facility]) [address] [place], [address], 12/21/2015 15:17:41 12/17/19 16 12/18/2015 lipid panel , serum LDL cholesterol calc COMMEN T mg/dL 0-99 TRIGL YCERI DE RESUL T INDIC ATED IS TOO HIGH FOR AN ACCUR ATE LDL DELIA STERO L ESTIM ATION . Not Available [facility] ([facility]) [address] [facility], [place], [address], 12/21/2015 15:17:41 12/17/19 16 12/18/2015 lipid panel , serum comment: FINANCIAL ADMINISTRATION OFFICER Not Available [facility] ([facility]) [address] [facility], [place], [address], 12/21/2015 15:17:41 12/17/19 16 12/18/2015 lipid panel , serum LDL/HDL ratio TNP ratio _unit s UNABL E TO CALCU LATE RESUL T SINCE NON-N UMERI C RESUL T OBTAI MAEGAN FOR COMPO NENT TEST. LDL/H DL RATIO MEN WOMEN 1/2 AVG.R ISK 1.0 1.5 AVG.R ISK 3.6 3.2 2X AVG.R ISK 6.2 5.0 3X AVG.R ISK 8.0 6.1 Not Available [facility] ([facility]) [address] [facility], [place], [address], 12/21/2015 15:17:41 12/17/19 16 12/18/2015 drug scree n, 5 drugs , urine amphetamines , urine NEGATI VE NG/mL cutoff =1000 AMPHE TAMIN E TEST INCLU BRUNO AMPHE TAMIN E AND METHA MPHET AMINE . Not Available [facility] ([facility]) [address] [facility], [place], [address], 12/21/2015 15:17:42 12/17/19 16 12/18/2015 drug scree n, 5 drugs , urine cannabinoid NEGATI VE NG/mL cutoff =50 Not Available [facility] ([facility]) [address] [place], [address], 12/21/2015 15:17:42 12/17/19 16 12/18/2015 drug scree n, 5 drugs , urine cocaine (metab.) NEGATI VE NG/mL cutoff =300 Not Available [facility] ([facility]) [address] [place], [address], 12/21/2015 15:17:42 12/17/19 16 12/18/2015 drug scree n, 5 drugs , urine opiates NEGATI VE NG/mL cutoff =2000 OPIAT E TEST INCLU BRUNO CODEI NE AND MORPH INE ONLY. Not Available [facility] ([facility]) [address] [place], [address], 12/21/2015 15:17:42 12/17/19 16 12/18/2015 drug scree n, 5 drugs , urine phencyclidin e NEGATI VE NG/mL cutoff =25 Not Available [facility] ([facility]) [address] [place], [address], 12/21/2015 15:17:42 12/17/19 16 12/18/2015 CBC WBC 6.3 x10e3 /uL 3.4-10 .8 Not Available [facility] ([facility]) [address] [place], [address], 12/21/2015 15:17:43 12/17/19 16 12/18/2015 CBC RBC 4.62 x10e6 /uL 4.14-5 .80 Not Available [facility] ([facility]) [address] [place], [address], 12/21/2015 15:17:43 12/17/19 16 12/18/2015 CBC hemoglobin 14.1 g/dL 12.6-1 7.7 Not Available [facility] ([facility]) [address] [place], [address], 12/21/2015 15:17:43 12/17/19 16 12/18/2015 CBC hematocrit 43.2 % 37.5-5 1.0 Not Available [facility] ([facility]) [address] [facility] [place], [address], 12/21/2015 15:17:43 12/17/19 16 12/18/2015 CBC MCV 94 fL 79-97 Not Available [facility] ([facility]) [address] [facility] [place], [address], 12/21/2015 15:17:43 12/17/19 16 12/18/2015 CBC MCH 30.5 pg 26.6-3 3.0 Not Available [facility] ([facility]) [address] [facility] [place], [address], 12/21/2015 15:17:43 12/17/19 16 12/18/2015 CBC MCHC 32.6 g/dL 31.5-3 5.7 Not Available [facility] ([facility]) [address] [place], [address], 12/21/2015 15:17:43 12/17/19 16 12/18/2015 CBC RDW 14.5 % 12.3-1 5.4 Not Available [facility] ([facility]) [address] [place], [address], 12/21/2015 15:17:43 12/17/19 16 12/18/2015 CBC platelets 211 x10e3 /uL 150-37 9 Not Available [facility] ([facility]) [address] [place], [address], 12/21/2015 15:17:43 12/17/19 16 12/18/2015 CBC neutrophils 44 % Not Avai lable [facility] ([facility]) [address] [place], [address], 12/21/2015 15:17:43 12/17/19 16 12/18/2015 CBC lymphs 43 % Not Available [facility] ([facility]) [address] [place], [address], 12/21/2015 15:17:43 12/17/19 16 12/18/2015 CBC monocytes 10 % Not Availa ble [facility] ([facility]) [address] [place], [address], 12/21/2015 15:17:43 12/17/19 16 12/18/2015 CBC eos 2 % Not Available [facility] ([facility]) [address] [place], [address], 12/21/2015 15:17:43 12/17/19 16 12/18/2015 CBC basos 1 % Not Available [facility] ([facility]) [address] [place], [address], 12/21/2015 15:17:43 12/17/19 16 12/18/2015 CBC immature cells FIN[employer]CIAL ADMINISTRATION OFFICER Not Available [facility] ([facility]) [address] [place], [address], 12/21/2015 15:17:43 12/17/19 16 12/18/2015 CBC neutrophils (absolute) 2.8 x10e3 /uL 1.4-7. 0 Not Available [facility] ([facility]) [address] [place], [address], 12/21/2015 15:17:43 12/17/19 16 12/18/2015 CBC lymphs (absolute) 2.7 x10e3 /uL 0.7-3. 1 Not Available [facility] ([facility]) [address] [place], [address], 12/21/2015 15:17:43 12/17/19 16 12/18/2015 CBC monocytes(ab solute) 0.6 x10e3 /uL 0.1-0. 9 Not Available [facility] ([facility]) [address] [place], [address], 12/21/2015 15:17:43 12/17/19 16 12/18/2015 CBC eos (absolute) 0.1 x10e3 /uL 0.0-0. 4 Not Available [facility] ([facility]) [address] [place], [address], 12/21/2015 15:17:43 12/17/19 16 12/18/2015 CBC baso (absolute) 0.0 x10e3 /uL 0.0-0. 2 Not Available [facility] ([facility]) [address] [place], [address], 12/21/2015 15:17:43 12/17/19 16 12/18/2015 CBC immature granulocytes 0 % Not Available [facility]) [address] [place], [address], 12/21/2015 15:17:43 12/17/19 16 12/18/2015 CBC immature grans (abs) 0.0 x10e3 /uL 0.0-0. 1 Not Available [facility] ([facility]) [address] [place], [address], 12/21/2015 15:17:43 12/17/19 16 12/18/2015 CBC NRBC FIN[employer]CIAL ADMINISTRATION OFFICER Not Available [facility] ([facility]) [address] [place], [address], 12/21/2015 15:17:43 12/17/19 16 12/18/2015 CBC hematology comments: FINANCIAL ADMINISTRATION OFFICER Not Available [facility] ([facility]) [address] [place], [address], 12/21/2015 15:17:43 12/17/19 16 12/18/2015 CMP, serum or plasm a glucose, serum 98 mg/dL 65-99 Not Available [facility] ([facility]) [address] [place], [address], 12/21/2015 15:17:44 12/17/19 16 12/18/2015 CMP, serum or plasm a BUN 10 mg/dL 6-20 Not Available [facility] ([facility]) [address] [facility] [place], [address], 12/21/2015 15:17:44 12/17/19 16 12/18/2015 CMP, serum or plasm a creatinine, serum 0.76 mg/dL 0.76-1 .27 Not Available [facility] ([facility]) [address] [facility] [place], [address], 12/21/2015 15:17:44 12/17/19 16 12/18/2015 CMP, serum or plasm a eGFR if nonafricn AM 123 mL/mi n/1.7 3 >59 Not Available [facility] ([facility]) [address] [facility] [place], [address], 12/21/2015 15:17:44 12/17/19 16 12/18/2015 CMP, serum or plasm a eGFR if africn AM 143 mL/mi n/1.7 3 >59 Not Available [facility] ([facility]) [address] [facility] [place], [address], 12/21/2015 15:17:44 12/17/19 16 12/18/2015 CMP, serum or plasm a BUN/creatini ne ratio 13 8-19 Not Available [facility] ([facility]) [address] [place], [address], 12/21/2015 15:17:44 12/17/19 16 12/18/2015 CMP, serum or plasm a sodium, serum 140 mmol/ L 134-14 4 Not Available [facility] ([facility]) [address] [facility] [place], [address], 12/21/2015 15:17:44 12/17/19 16 12/18/2015 CMP, serum or plasm a potassium, serum 4.2 mmol/ L 3.5-5. 2 Not Available [facility] ([facility]) [address] [place], [address], 12/21/2015 15:17:44 12/17/19 16 12/18/2015 CMP, serum or plasm a chloride, serum 103 mmol/ L 97-108 Not Available [facility] ([facility]) [address] [place] [address], [address], 12/21/2015 15:17:44 12/17/19 16 12/18/2015 CMP, serum or plasm a carbon dioxide, total 20 mmol/ L 18-29 Not Available [facility] ([facility]) [address] [place], [address], 12/21/2015 15:17:44 12/17/19 16 12/18/2015 CMP, serum or plasm a calcium, serum 9.0 mg/dL 8.7-10 .2 Not Available [facility] ([facility]) [address] [place], [address], 12/21/2015 15:17:44 12/17/19 16 12/18/2015 CMP, serum or plasm a protein, total, serum 7.2 g/dL 6.0-8. 5 Not Available [facility] ([facility]) [address] [place], [address], 12/21/2015 15:17:44 12/17/19 16 12/18/2015 CMP, serum or plasm a albumin, serum 4.4 g/dL 3.5-5. 5 Not Available [facility] ([facility]) [address] [place], [address], 12/21/2015 15:17:44 12/17/19 16 12/18/2015 CMP, serum or plasm a globulin, total 2.8 g/dL 1.5-4. 5 Not Available [facility] ([facility]) [address] [place] [address], [address], 12/21/2015 15:17:44 12/17/19 16 12/18/2015 CMP, serum or plasm a A/G ratio 1.6 1.1-2. 5 Not Available [facility] ([facility]) [address] [place], [address], 12/21/2015 15:17:44 12/17/19 16 12/18/2015 CMP, serum or plasm a bilirubin, total 0.6 mg/dL 0.0-1. 2 Not Available [facility] ([facility]) [address] [place], [address], 12/21/2015 15:17:44 12/17/19 16 12/18/2015 CMP, serum or plasm a alkaline phosphatase, S 86 IU/L 39-117 Not Available [facility] ([facility]) [address] [place], [address], 12/21/2015 15:17:44 12/17/19 16 12/18/2015 CMP, serum or plasm a AST (SGOT) 39 IU/L 0-40 Not Available [facility] ([facility]) [address] [place] [address], [address], 12/21/2015 15:17:44 12/17/19 16 12/18/2015 CMP, serum or plasm a ALT (SGPT) 63 IU/L 0-44 above high normal Not Available [facility] ([facility]) [address] [place] [address], [address], 12/21/2015 15:17:44 12/17/19 16 12/18/2015 iron + total iron- dagoberto ng capac ity (TIBC ), serum iron bind.cap.(TI BC) 358 ug/dL 250-45 0 Not Available [facility] ([facility]) [address] [place], [address], 12/21/2015 15:17:45 12/17/19 16 12/18/2015 iron + total iron- dagoberto ng capac ity (TIBC ), serum UIBC 278 ug/dL 111-34 3 Not Available [facility] ([facility]) [place], [address], 12/21/2015 15:17:45 12/17/19 16 12/18/2015 iron + total iron- dagoberto ng capac ity (TIBC ), serum iron, serum 80 ug/dL 38-169 Not Available [facility] ([facility]) [address] [place], [address], 12/21/2015 15:17:45 12/17/19 16 12/18/2015 iron + total iron- dagoberto ng capac ity (TIBC ), serum iron saturation 22 % 15-55 Not Available [facility] ([facility]) [address] [place], [address], 12/21/2015 15:17:45 12/17/19 16 12/21/2015 ricke ttsia l disea se panel , serum spotted fever group IgG <1:64 neg:<1 :64 Not Available [facility] ([facility]) [address] [place], [address], 12/21/2015 15:17:46 12/17/19 16 12/21/2015 ricke ttsia l disea se panel , serum typhus fever group IgG <1:64 neg:<1 :64 Not Available [facility] ([facility]) [address] [place] [address], [address], 12/21/2015 15:17:46 12/17/19 16 12/21/2015 ricke ttsia l disea se panel , serum spotted fever group IgM <1:64 neg:<1 :64 Not Available [facility] ([facility]) [address] [place], [address], 12/21/2015 15:17:46 12/17/19 16 12/21/2015 ricke ttsia l disea se panel , serum typhus fever group IgM <1:64 neg:<1 :64 Not Available [facility] ([facility]) [address] [place], [address], 12/21/2015 15:17:46 12/17/19 16 12/18/2015 HIV (1+O+ 2) Ab, serum HIV 1/O/2 abs-index value <1.00 <1.00 INDEX VALUE : SPECI MEN REACT IVITY RELAT LINNEA TO THE NEGAT LINNEA CUTOF F. Not Available [facility] ([facility]) [address] [place], [address], 12/21/2015 15:17:47 12/17/19 16 12/18/2015 HIV (1+O+ 2) Ab, serum HIV 1/O/2 abs, qual NON REACTI VE non reacti ve Not Available [facility] ([facility]) [address] [facility], [place], [address], 12/21/2015 15:17:47 12/17/19 16 12/18/2015 vitam in B12 + folat e, serum or blood vitamin B12 440 pg/mL 211-94 6 Not Available [facility] ([facility]) [address] [facility], [place], [address], 12/21/2015 15:17:47 12/17/19 16 12/18/2015 vitam in B12 + folat e, serum or blood folate (folic acid), serum 6.9 NG/mL >3.0 A SERUM FOLAT E ZHANNA NTRAT ION OF LESS THAN 3.1 NG/ML IS CONSI DERED TO REPRE SENT CLINI ANDREEA DEFIC IENCY . Not Available [facility] ([facility]) [address] [facility], [place], [address], 12/21/2015 15:17:47 12/17/19 16 12/18/2015 HbA1c (hemo globi n A1c), blood hemoglobin A1C 4.8 % 4.8-5. 6 PRE-D IABET ES: 5.7 - 6.4 DIABE HIMANSHU: >6.4 GLYCE MEMO CONTR OL FOR ADULT S WITH DIABE HIMANSHU: <7.0 Not Available [facility] ([facility]) [address] [place], [address], 12/21/2015 15:17:48 12/17/19 16 12/18/2015 TSH, serum or plasm a TSH 5.390 uIU/m L 0.450- 4.500 above high normal Not Available [facility] ([facility]) [address] [facility], [place], [address], 12/21/2015 15:17:49 12/17/19 16 12/18/2015 hepat itis C Ab, signa l-to- cutof f, serum or plasm a hep C virus Ab <0.1 S/co_ ratio 0.0-0. 9 NEGAT LINNEA: < 0.8 INDET ERMIN ATE: 0.8 - 0.9 POSIT LINNEA: > 0.9 [facility] RECOM MENDS THAT A POSIT LINNEA HCV ANTIB JACKY RESUL T BE FOLLO WED UP WITH A HCV NUCLE IC ACID AMPLI FICAT ION TEST (5507 13). Not Available [facility] ([facility]) [address] [facility], [place], [address], 12/21/2015 15:17:49 12/17/19 16 12/17/2015 heter ophil e Ab, quali tativ e latex agglu tinat ion, serum interpretati on: COMMEN T EBV INTER PRETA TION CHART INTER PRETA TION EBV-I GM EA(D) -IGG VCA-I GG EBNA- IGG EBV SERON EGATI VE - - - - EARLY PHASE + - - - ACUTE PRIMA RY + +OR- + - INFEC TION CONVA LESCE NCE/P AST - +OR- + + INFEC TION REACT IVATE D +OR- + + + INFEC TION + ANTIB JACKY PRESE NT - ANTIB JACKY ABSEN T Not Available [facility] ([facility]) [address] [facility], [place], [address], 12/21/2015 15:17:50 12/17/19 16 12/18/2015 heter ophil e Ab, quali tativ e latex agglu tinat ion, serum mononucleosi s test, qual NEGATI VE negati ve THE SENSI TIVIT Y OF HETER OPHIL E ANTIB JACKY TESTI NG IS 80-90 %. EPSTE IN KNAPP IGM TESTI NG OFFER S HIGHE R SENSI TIVIT Y. Not Available [facility] ([facility]) [address] [place], [address], 12/21/2015 15:17:50 12/17/19 16 12/18/2015 heter ophil e Ab, quali tativ e latex agglu tinat ion, serum ebv Ab vca, IgM 97.7 U/mL 0.0-35 .9 above high normal PLEAS E NOTE: SPECI MEN IS LIPEM IC. NEGAT LINNEA <36.0 EQUIV OCAL 36.0 - 43.9 POSIT LINNEA >43.9 Not Available [facility] ([facility]) [address] [place], [address], 12/21/2015 15:17:50 12/17/19 16 12/18/2015 heter ophil e Ab, quali tativ e latex agglu tinat ion, serum ebv early antigen Ab, IgG <9.0 U/mL 0.0-8. 9 PLEAS E NOTE: SPECI MEN IS LIPEM IC. NEGAT LINNEA < 9.0 EQUIV OCAL 9.0 - 10.9 POSIT LINNEA >10.9 Not Available [facility] ([facility]) [address] [place], [address], 12/21/2015 15:17:50 12/17/19 16 12/18/2015 heter ophil e Ab, quali tativ e latex agglu tinat ion, serum ebv Ab vca, IgG >600.0 U/mL 0.0-17 .9 above high normal PLEAS E NOTE: SPECI MEN IS LIPEM IC. NEGAT LINNEA <18.0 EQUIV OCAL 18.0 - 21.9 POSIT LINNEA >21.9 Not Available [facility] ([facility]) [address] [place], [address], 12/21/2015 15:17:50 12/17/19 16 12/18/2015 heter ophil e Ab, quali tativ e latex agglu tinat ion, serum ebv nuclear antigen Ab, IgG 477.0 U/mL 0.0-17 .9 above high normal PLEAS E NOTE: SPECI MEN IS LIPEM IC. NEGAT LINNEA <18.0 EQUIV OCAL 18.0 - 21.9 POSIT LINNEA >21.9 Not Available [facility] ([facility]) [address] [place], [address], 12/21/2015 15:17:50 12/17/19 16 12/18/2015 donnie tin, serum or plasm a ferritin, serum 311 NG/mL 30-400 Not Available [facility] ([facility]) [address] [place], [address], 12/21/2015 15:17:51 12/29/19 16 12/30/2015 lipid panel , serum cholesterol, total 246 mg/dL 100-19 9 above high normal Not Available [facility] ([facility]) [address] [place], [address], 01/01/2016 09:18:42 12/29/19 16 12/30/2015 lipid panel , serum triglyceride s 644 mg/dL 0-149 alert high Not Available [facility] ([facility]) [address] [place], [address], 01/01/2016 09:18:42 12/29/19 16 12/30/2015 lipid panel , serum LDL chol. (direct) 109 mg/dL 0-99 above high normal Not Available [facility] ([facility]) [address] [place], [address], 01/01/2016 09:18:42 12/29/19 16 12/30/2015 lipid panel , serum HDL cholesterol 29 mg/dL >39 below low normal ACCOR DING TO ATP-I II GUIDE LINES , HDL-C >59 MG/DL IS CONSI DERED A NEGAT LINNEA RISK FACTO R FOR CHD. Not Available [facility] ([facility]) [address] [facility], [place], [address], 01/01/2016 09:18:42 12/29/19 16 12/30/2015 lipid panel , serum VLDL cholesterol andreea COMMEN T mg/dL 5-40 THE CALCU LATIO N FOR THE VLDL DELIA STERO L IS NOT VALID WHEN TRIGL YCERI DE LEVEL IS >400 MG/DL . Not Available [facility] ([facility]) [address] [facility], [place], [address], 01/01/2016 09:18:42 12/29/19 16 12/30/2015 lipid panel , serum LDL cholesterol calc COMMEN T mg/dL 0-99 TRIGL YCERI DE RESUL T INDIC ATED IS TOO HIGH FOR AN ACCUR ATE LDL DELIA STERO L ESTIM ATION . Not Available [facility] ([facility]) [address] [facility], [place], [address], 01/01/2016 09:18:42 12/29/19 16 12/30/2015 lipid panel , serum comment: FINANCIAL ADMINISTRATION OFFICER Not Available [facility] ([facility]) [address] [facility], [place], [address], 01/01/2016 09:18:42 12/29/19 16 12/30/2015 lipid panel , serum LDL/HDL ratio TNP ratio _unit s UNABL E TO CALCU LATE RESUL T SINCE NON-N UMERI C RESUL T OBTAI MAEGAN FOR COMPO NENT TEST. LDL/H DL RATIO MEN WOMEN 1/2 AVG.R ISK 1.0 1.5 AVG.R ISK 3.6 3.2 2X AVG.R ISK 6.2 5.0 3X AVG.R ISK 8.0 6.1 Not Available [facility] ([facility]) [address] [facility], [place], [address], 01/01/2016 09:18:42 12/29/19 16 12/30/2015 drug scree n, 5 drugs , urine amphetamines , urine NEGATI VE NG/mL cutoff =1000 AMPHE TAMIN E TEST INCLU BRUNO AMPHE TAMIN E AND METHA MPHET AMINE . Not Available [facility] ([facility]) [address] [place], [address], 01/01/2016 09:18:43 12/29/19 16 12/30/2015 drug scree n, 5 drugs , urine cannabinoid NEGATI VE NG/mL cutoff =50 Not Available [facility] ([facility]) [address] [place], [address], 01/01/2016 09:18:43 12/29/19 16 12/30/2015 drug scree n, 5 drugs , urine cocaine (metab.) NEGATI VE NG/mL cutoff =300 Not Available [facility] ([facility]) [address] [place], [address], 01/01/2016 09:18:43 12/29/19 16 12/30/2015 drug scree n, 5 drugs , urine opiates NEGATI VE NG/mL cutoff =2000 OPIAT E TEST INCLU BRUNO CODEI NE AND MORPH INE ONLY. Not Available [facility] ([facility]) [address] [place], [address], 01/01/2016 09:18:43 12/29/19 16 12/30/2015 drug scree n, 5 drugs , urine phencyclidin e NEGATI VE NG/mL cutoff =25 Not Available [facility] ([facility]) [address] [place], [address], 01/01/2016 09:18:43 12/29/19 16 12/30/2015 CBC WBC 7.8 x10e3 /uL 3.4-10 .8 Not Available [facility] ([facility]) [address] [place], [address], 01/01/2016 09:18:43 12/29/19 16 12/30/2015 CBC RBC 4.85 x10e6 /uL 4.14-5 .80 Not Available [facility] ([facility]) [address] [place], [address], 01/01/2016 09:18:43 12/29/19 16 12/30/2015 CBC hemoglobin 15.0 g/dL 12.6-1 7.7 Not Available [facility] ([facility]) [address] [place], [address], 01/01/2016 09:18:43 12/29/19 16 12/30/2015 CBC hematocrit 44.2 % 37.5-5 1.0 Not Available [facility] ([facility] [address] [facility] [place], [address], 01/01/2016 09:18:43 12/29/19 16 12/30/2015 CBC MCV 91 fL 79-97 Not Available [facility] ([facility]) [address] [facility] [place], [address], 01/01/2016 09:18:43 12/29/19 16 12/30/2015 CBC MCH 30.9 pg 26.6-3 3.0 Not Available [facility] ([facility] [address] [facility] [place], [address], 01/01/2016 09:18:43 12/29/19 16 12/30/2015 CBC MCHC 33.9 g/dL 31.5-3 5.7 Not Available [facility] ([facility]) [address] [facility], [address], 01/01/2016 09:18:43 12/29/19 16 12/30/2015 CBC RDW 14.6 % 12.3-1 5.4 Not Available [facility] ([facility]) [address] [facility] [place], [address], 01/01/2016 09:18:43 12/29/19 16 12/30/2015 CBC platelets 221 x10e3 /uL 150-37 9 Not Available [facility] ([facility]) [address] [place], [address], 01/01/2016 09:18:43 12/29/19 16 12/30/2015 CBC neutrophils 61 % Not Avai lable [facility] ([facility]) [address] [place], [address], 01/01/2016 09:18:43 12/29/19 16 12/30/2015 CBC lymphs 29 % Not Available [facility] ([facility]) [address] [place], [address], 01/01/2016 09:18:43 12/29/19 16 12/30/2015 CBC monocytes 7 % Not Availa ble [facility] ([facility]) [address] [place], [address], 01/01/2016 09:18:43 12/29/19 16 12/30/2015 CBC eos 2 % Not Available [facility] ([facility]) [address] [place], [address], 01/01/2016 09:18:43 12/29/19 16 12/30/2015 CBC basos 1 % Not Available [facility] ([facility]) [address] [place], [address], 01/01/2016 09:18:43 12/29/19 16 12/30/2015 CBC immature cells FINANCIAL ADMINISTRATION OFFICER Not Available [facility] ([facility]) [address] [place], [address], 01/01/2016 09:18:43 12/29/19 16 12/30/2015 CBC neutrophils (absolute) 4.8 x10e3 /uL 1.4-7. 0 Not Available [facility] ([facility]) [address] [place], [address], 01/01/2016 09:18:43 12/29/19 16 12/30/2015 CBC lymphs (absolute) 2.3 x10e3 /uL 0.7-3. 1 Not Available [facility] ([facility]) [address] [facility], [place], [address], 01/01/2016 09:18:43 12/29/19 16 12/30/2015 CBC monocytes(ab solute) 0.5 x10e3 /uL 0.1-0. 9 Not Available [facility] ([facility]) [address] [facility], [place], [address], 01/01/2016 09:18:43 12/29/19 16 12/30/2015 CBC eos (absolute) 0.2 x10e3 /uL 0.0-0. 4 Not Available [facility] ([facility]) [address] [place], [address], 01/01/2016 09:18:43 12/29/19 16 12/30/2015 CBC baso (absolute) 0.0 x10e3 /uL 0.0-0. 2 Not Available [facility] ([facility]) [address] [facility], [place], [address], 01/01/2016 09:18:43 12/29/19 16 12/30/2015 CBC immature granulocytes 0 % Not Available [facility] ([facility]) [address] [place], [address], 01/01/2016 09:18:43 12/29/19 16 12/30/2015 CBC immature grans (abs) 0.0 x10e3 /uL 0.0-0. 1 Not Available [facility] ([facility]) [address] [place], [address], 01/01/2016 09:18:43 12/29/19 16 12/30/2015 CBC NRBC FINANCIAL ADMINISTRATION OFFICER Not Available [facility] ([facility]) [address] [place], [address], 01/01/2016 09:18:43 12/29/19 16 12/30/2015 CBC hematology comments: FINANCIAL ADMINISTRATION OFFICER Not Available [facility] ([facility]) [address] [place], [address], 01/01/2016 09:18:43 12/29/19 16 12/30/2015 urina lysis , compl ete specific gravity 1.022 1.005- 1.030 Not Available [facility] ([facility]) [address] [facility] [place], [address], 01/01/2016 09:18:44 12/29/19 16 12/30/2015 urina lysis , compl ete pH 5.5 5.0-7. 5 Not Available [facility] ([facility]) [address] [facility] [place], [address], 01/01/2016 09:18:44 12/29/19 16 12/30/2015 urina lysis , compl ete urine-color YELLOW yellow Not Available [facility] ([facility]) [address] [place], [address], 01/01/2016 09:18:44 12/29/19 16 12/30/2015 urina lysis , compl ete appearance CLEAR clear Not Available [facility] ([facility]) [address] [place], [address], 01/01/2016 09:18:44 12/29/19 16 12/30/2015 urina lysis , compl ete WBC esterase NEGATI VE negati ve Not Available [facility] ([facility]) [address] [place], [address], 01/01/2016 09:18:44 12/29/19 16 12/30/2015 urina lysis , compl ete protein NEGATI VE negati ve/tra ce Not Available [facility] ([facility]) [address] [place], [address], 01/01/2016 09:18:44 12/29/19 16 12/30/2015 urina lysis , compl ete glucose NEGATI VE negati ve Not Available [facility] ([facility]) [address] [place], [address], 01/01/2016 09:18:44 12/29/19 16 12/30/2015 urina lysis , compl ete glucose reflex FINANCIAL ADMINISTRATION OFFICER Not Available [facility] ([facility]) [address] [place], [address], 01/01/2016 09:18:44 12/29/19 16 12/30/2015 urina lysis , compl ete ketones NEGATI VE negati ve Not Available [facility] ([facility]) [address] [place], [address], 01/01/2016 09:18:44 12/29/19 16 12/30/2015 urina lysis , compl ete occult blood NEGATI VE negati ve Not Available [facility] ([facility]) [address] [place], [address], 01/01/2016 09:18:44 12/29/19 16 12/30/2015 urina lysis , compl ete bilirubin NEGATI VE negati ve Not Available [facility] ([facility]) [address] [place], [address], 01/01/2016 09:18:44 12/29/19 16 12/30/2015 urina lysis , compl ete urobilinogen ,semi-qn 0.2 mg/dL 0.2-1. 0 Not Available [facility] ([facility]) [address] [place], [address], 01/01/2016 09:18:44 12/29/19 16 12/30/2015 urina lysis , compl ete nitrite, urine NEGATI VE negati ve Not Available [facility] ([facility]) [address] [place], [address], 01/01/2016 09:18:44 12/29/19 16 12/30/2015 urina lysis , compl ete microscopic examination COMMEN T MICRO SCOPI C NOT INDIC ATED AND NOT PERFO RMED. Not Available [facility] ([facility]) [address] [facility], [place], [address], 01/01/2016 09:18:44 12/29/19 16 12/29/2015 hepat itis B DNA, quant itati ve, serum test information: COMMEN T THE REPOR TABLE RANGE FOR THIS ASSAY IS 20 TO 170,0 00,00 0 IU/ML Not Available [facility] ([facility]) [address] [facility], [place], [address], 01/01/2016 09:18:45 12/29/19 16 12/31/2015 hepat itis B DNA, quant itati ve, serum HBV IU/mL COMMEN T IU/mL HBV DNA NOT DETEC YARI Not Available [facility] ([facility]) [address] [facility], [place], [address], 01/01/2016 09:18:45 12/29/19 16 12/31/2015 hepat itis B DNA, quant itati ve, serum log10 HBV IU/mL TNP log10 iu/mL UNABL E TO CALCU LATE RESUL T SINCE NON-N UMERI C RESUL T OBTAI MAEGAN FOR COMPO NENT TEST. Not Available [facility] ([facility]) [address] [facility], [place], [address], 01/01/2016 09:18:45 12/29/19 16 01/01/2016 hepat itis B genot ype, serum HBV genotype TNP THE HBV SPECI FIC TESTI NG ORDER ED FOR THIS SPECI MEN COULD NOT BE COMPL ETED. THIS COULD BE DUE TO LOW VIRAL COPY NUMBE R, PCR INHIB ITION OR RESUL TS NOT MEETI NG ACCEP ESTHER CRITE ROBERT. Not Available [facility] ([facility]) [address] [place], [address], 01/01/2016 09:18:45 12/29/19 16 01/01/2016 hepat itis B genot ype, serum HBV precore mutation TNP THE HBV SPECI FIC TESTI NG ORDER ED FOR THIS SPECI MEN COULD NOT BE COMPL ETED. THIS COULD BE DUE TO LOW VIRAL COPY NUMBE R, PCR INHIB ITION OR RESUL TS NOT MEETI ERNA SANTANA CRITE ROBERT. THIS TEST WAS BELKIS SCOTT AND ITS PERFO ESTEBAN E FLORA GODFREY STICS DETER MINED BY [facility]. IT HAS NOT BEEN CLEAR ED OR APPRO ARON BY THE FOOD AND DRUG ADMIN ISTRA TION. THE FDA HAS DETER MINED THAT SUCH CLEAR ANCE OR APPRO JOSE RAUL IS NOT NECJADA MENENDEZ. Not Available [facility] ([facility]) [address] [place], [address], 01/01/2016 09:18:45 12/29/19 16 12/30/2015 TSH, ultra -sens itive , serum TSH 5.200 uIU/m L 0.450- 4.500 above high normal Not Available [facility] ([facility]) [address] [place], [address], 01/01/2016 09:18:46 12/29/19 16 12/30/2015 TSH, ultra -sens itive , serum T4,free (direct) 0.97 NG/dL 0.82-1 .77 Not Available [facility] ([facility]) [address] [place], [address], 01/01/2016 09:18:46 12/29/19 16 12/30/2015 HBsAg (hepa titis B surfa ce Ag), EIA, serum HBsAg screen NEGATI VE negati ve Not Available [facility] ([facility]) [address] [place], [address], 01/01/2016 09:18:46 12/29/19 16 12/30/2015 AST/S GOT (aspa rtate amino trans feras e), serum or plasm a AST (SGOT) 32 IU/L 0-40 Not Available [facility] ([facility]) [address] [place], [address], 01/01/2016 09:18:47 12/29/19 16 12/30/2015 ALT (gertrude ine amino trans feras e), serum or plasm a ALT (SGPT) 60 IU/L 0-44 above high normal Not Available [facility] ([facility]) [address] [facility], [place], [address], 01/01/2016 09:18:47 12/29/19 16 12/30/2015 hepat itis B core IgM Ab, qual, serum or plasm a hep B core Ab, IgM NEGATI VE negati ve Not Available [facility] ([facility]) [address] [facility], [place], [address], 01/01/2016 09:18:48 04/11/20 16 04/12/2016 lipid panel , serum cholesterol, total 266 mg/dL 100-19 9 above high normal Not Available [facility] ([facility]) [address] [facility], [place], [address], 04/12/2016 15:17:19 04/11/20 16 04/12/2016 lipid panel , serum triglyceride s 702 mg/dL 0-149 alert high Not Available [facility] ([facility]) [address] [place], [address], 04/12/2016 15:17:19 04/11/20 16 04/12/2016 lipid panel , serum LDL chol. (direct) 117 mg/dL 0-99 above high normal Not Available [facility] ([facility]) [address] [place], [address], 04/12/2016 15:17:19 04/11/20 16 04/12/2016 lipid panel , serum HDL cholesterol 30 mg/dL >39 below low normal ACCOR DING TO ATP-I II GUIDE LINES , HDL-C >59 MG/DL IS CONSI DERED A NEGAT LINNEA RISK FACTO R FOR CHD. Not Available [facility] ([facility]) [address] [place], [address], 04/12/2016 15:17:19 04/11/20 16 04/12/2016 lipid panel , serum VLDL cholesterol andreea COMMEN T mg/dL 5-40 THE CALCU LATIO N FOR THE VLDL DELIA STERO L IS NOT VALID WHEN TRIGL YCERI DE LEVEL IS >400 MG/DL . Not Available [facility] ([facility]) [address] [facility], [place], [address], 04/12/2016 15:17:19 04/11/20 16 04/12/2016 lipid panel , serum LDL cholesterol calc COMMEN T mg/dL 0-99 TRIGL YCERI DE RESUL T INDIC ATED IS TOO HIGH FOR AN ACCUR ATE LDL DELIA STERO L ESTIM ATION . Not Available [facility] ([facility]) [address] [facility], [place], [address], 04/12/2016 15:17:19 04/11/20 16 04/12/2016 lipid panel , serum comment: FINANCIAL ADMINISTRATION OFFICER Not Available [facility] ([facility]) [address] [facility], [place], [address], 04/12/2016 15:17:19 04/11/20 16 04/12/2016 lipid panel , serum LDL/HDL ratio TNP ratio _unit s UNABL E TO CALCU LATE RESUL T SINCE NON-N UMERI C RESUL T OBTAI MAEGAN FOR COMPO NENT TEST. LDL/H DL RATIO MEN WOMEN 1/2 AVG.R ISK 1.0 1.5 AVG.R ISK 3.6 3.2 2X AVG.R ISK 6.2 5.0 3X AVG.R ISK 8.0 6.1 Not Available [facility] ([facility]) [address] [facility], [place], [address], 04/12/2016 15:17:19 04/11/20 16 04/12/2016 HbA1c (hemo globi n A1c), blood hemoglobin A1C 5.8 % 4.8-5. 6 above high normal PRE-D IABET ES: 5.7 - 6.4 DIABE HIMANSHU: >6.4 GLYCE MEMO CONTR OL FOR ADULT S WITH DIABE HIMANSHU: <7.0 Not Available [facility] ([facility]) [address] [facility], [place], [address], 04/12/2016 15:17:20 04/11/20 16 04/12/2016 TSH, 2nd Gener ation , QN, serum or plasm a TSH 6.430 uIU/m L 0.450- 4.500 above high normal Not Available [facility] ([facility]) [address] [place], [address], 04/12/2016 15:17:20 04/11/20 16 04/12/2016 TSH, 2nd Gener ation , QN, serum or plasm a thyroxine (T4) 5.9 ug/dL 4.5-12 .0 Not Available [facility] ([facility]) [address] [place], [address], 04/12/2016 15:17:20 04/11/20 16 04/12/2016 AST/S GOT (aspa rtate amino trans feras e), serum or plasm a AST (SGOT) 50 IU/L 0-40 above high normal Not Available [facility] ([facility]) [address] [place], [address], 04/12/2016 15:17:21 04/11/20 16 04/12/2016 ALT (gertrude ine amino trans feras e), serum or plasm a ALT (SGPT) 74 IU/L 0-44 above high normal Not Available [facility] ([facility]) [address] [place], [address], 04/12/2016 15:17:22 11/30/19 16 11/30/2015 x-ray , chest No observ ation record ed. oajao Not Available 2015 20:31:46 11/30/19 16 11/30/2015 CT, abdom en, w/ contr ast No observ ation record ed. oajao Not Available 2015 20:31:46 01/01/20 16 12/31/2015 CT, abdom en and pelvi s No observ ation record ed. [facility] (Imaging) [address], [place], [address], 01/12/2016 10:34:47 01/13/20 16 01/13/2016 x-ray , chest , 2 view No observ ation record ed. [facility] [address] [facility], [place], [address], 04/11/2016 12:42:59 04/17/20 16 04/17/2016 CT, abdom en + pelvi s, w/ contr ast No observ ation record ed. [facility] On [facility] Orders [address] [place], [address], 04/18/2016 06:50:07 04/28/20 16 04/28/2016 CT, abdom en and pelvi s No observ ation record ed. [facility] [address] [place], [address], 04/28/2016 17:34:53 06/23/20 16 06/23/2016 CT, lumba r spine , w/o contr ast No observ ation record ed. [facility] (Imaging) [address] [place], [address], 06/25/2016 07:42:46 Result Notes None recorded. Problems Name Problem SNOMED Code Status Onset Date Resolution Date Notes Provider Name and Address Organization Details Recorded Time Pain of shoulder region 71209739 Active Sheng Cabrera PA-C Attn: Kelly cruz,[address] [facility], [place], [address], [place] - [facility] 5 15:36:56 Splenomegaly 45539390 Active Bita Guadalupe MD Attn: Kelly cruz,[address] [facility], [place], [address], [place] 6 13:24:46 Anemia 147909950 Active Bita Guadalupe MD Attn: Kelly cruz,[address] [facility], [place], [address], [place] - [facility] 6 20:38:08 Fever 413643195 Active Bita Guadalupe MD Attn: Accountin g,[address] [facility], [place], [address], [place] - [facility] 6 20:38:08 Maculopapular eruption 463429332 Active Bita Guadalupe MD Attn: Accountin g,[address] [facility], [place], [address], [place] [facility] 6 20:38:08 Influenza-like illness 90294100 Active Bita Guadalupe MD Attn: Accountin g,[address] [facility], [place], [address], [place] [facility] 6 20:38:08 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 Bita Guadalupe MD Attn: Accountin g,[address] [facility], [place], [address], [place] [facility] 6 18:28:14 Acute hepatitis 34307777 Active Bita Guadalupe MD Attn: Accountin g,[address] [facility], [place], [address], [place] [facility] 6 18:28:14 Hyperlipidemia 96157570 Active Bita Guadalupe MD Attn: Accountin g,[address] [facility], [place], [address], [place] [facility] 6 09:46:54 Left sided abdominal pain 134635676 Active Bita Guadalupe MD Attn: Accountin g,[address] [facility], [place], [address], [place] [facility] 6 10:36:17 Laboratory test result abnormal 851035297 Active Bita Guadalupe MD Attn: Accountin g,[address] [facility], [place], [address], [place] [facility] 6 10:36:17 Abdominal pain 60089265 Active Bita Guadalupe MD Attn: Accountin g,[address] [facility], [place], [address], [place] [facility] 6 12:58:20 Hematochezia 650574642 Active Bita Guadalupe MD Attn: Kelly cruz,[address] [facility], [place], [address], [place] [facility] 6 12:58:20 Overweight 858170137 Active Bita Guadalupe MD Attn: Kelly cruz,[address] [facility], [place], [address], [place] [facility] 6 13:24:46 Thyroid hormone tests outside reference range 032450105 Active Bita Guadalupe MD Attn: Kelly cruz,[address] [facility], [place], [address], [facility] - S[facility] 6 13:24:46 Problem Notes None recorded. Procedures Surgical History Date Name Laterality Status Provider Name and Address Organization Details Recorded Time Appendectomy completed Bita Guadalupe MD Attn: Accounting,[address] [facility], [place], [address], [place] - [facility] 11/30/2015 15:35:59 Imaging Results None recorded. Procedure Notes None recorded. Medical Equipment None Reported. Allergies Allergen ID Allergen Name Allergen Category Reaction Reaction Severity Criticality Documentation Date Start Date Code Code System Note Provider Name and Address Organization Details Recorded Time 3632 penicilli n G Not available anaphylax is Not available Not available 10/07/2014 7980 RxNorm Patricia Aquino MA [facility], [place] - [facility] 4 15:33:36 Medications Name Sig Start Date Stop Date Status Note LastModified by Organization Details LastModified Time azithromyci n 250 mg tablet active Not Available Not Available Not Available hydrocodone 5 mg-acetamin ophen 325 mg tablet active Not Available Not Available No t Available tramadol 50 mg tablet Take 2 tablets every 12 hours by oral route for 7 days. 04/11 completed Not Available Not Available Not Available fenofibrate micronized 134 mg capsule Take 1 capsule every day by oral route for 90 days. 04/11 completed Not Available Not Available Not Available Depo-Medrol 80 mg/mL suspension for injection Take 1 mL by injection route. 11/30 completed Not Available Not Available Not Available dicyclomine 20 mg tablet active Not Available Not Available Not Available gabapentin 300 mg capsule Take 1 capsule 3 times a day by oral route for 30 days. 11/30 completed Not Available Not Available Not Available diclofenac sodium 75 mg tablet,ludy yed release Take 1 tablet twice a day by oral route for 30 days. 11/30 completed Not Available Not Available Not Available ibuprofen 600 mg tablet active Not Available Not Available Not Available ketorolac 60 mg/2 mL intramuscul ar solution Inject 2 mL by intramusc ular route. 11/30 completed Not Available Not Available Not Available ondansetron 4 mg disintegrat ing tablet active Not Available Not Available N ot Available Bactrim DS 800 mg-160 mg tablet Take 1 tablet every 12 hours by oral route for 10 days. 11/30 completed Not Available Not Available Not Available acetaminoph en 04/11 completed Not Available Not Available Not Available ibuprofen 04/11 completed Not Available Not Available Not Available fenofibrate nanocrystal lized 145 mg tablet One po daily for high triglycer ides 04/11 completed Not Available Not Available Not Available Vitals Date Recorded Body temperature Body height Heart rate Respiratory rate Body weight Body mass index (BMI) Systolic And Diastolic Provider Name and Address Organization Details Last Updated DateTime 6 99 [degF] 173.99 cm 88 /min 22 /min 752644. 019146 g 36.8 kg/m2 112/74 mm[Hg] February [facility] 6 14:42:36 Date Recorded Body temperature Respiratory rate Body weight Heart rate Body height Body mass index (BMI) Systolic And Diastolic Provider Name and Address Organization Details Last Updated DateTime 6 98.4 [degF] 18 /min 861772. 81425 g 72 /min 173.99 cm 35.7 kg/m2 114/74 mm[Hg] February [facility] SIF 6 10:06:59 Date Recorded Body mass index (BMI) Respiratory rate Body height Heart rate Body temperature Body weight Systolic And Diastolic Provider Name and Address Organization Details Last Updated DateTime 6 36 kg/m2 20 /min 173.99 cm 80 /min 97.8 [degF] 353987. 1688 g 118/76 mm[Hg] February [facility] SI 6 10:09:52 Date Recorded Respiratory rate Body temperature Body height Heart rate Body weight Body mass index (BMI) Systolic And Diastolic Provider Name and Address Organization Details Last Updated DateTime 6 20 /min 97.4 [degF] 173.99 cm 80 /min 157874. 16175 g 36.7 kg/m2 128/74 mm[Hg] February [facility] SI 6 10:31:13 Date Recorded Heart rate Oxygen saturation Oxygen saturation in Arterial blood by Pulse oximetry Body temperature Body mass index (BMI) Body height Body weight Systolic And Diastolic Provider Name and Address Organization Details Last Updated DateTime 6 84 /min 98 % 98 % 97.7 [degF] 38.2 kg/m2 173.99 cm 051605. 23996 g 124/7 mm[Hg] February [facility] SI 6 12:36:59 Social History None recorded. Functional Status None recorded. Mental Status None recorded. Family History Relationship Description Onset Age of this Age Resolved Age Notes LastModified by Organization Details LastModified Time Father Diabetes mellitus [email or web address] Not available 2014 15:40:14 Medical History Condition Response Coronary Artery Disease N Other N Atrial Fibrillation N High Blood Pressure N Thyroid Problems N Kidney or Bladder Problems N GI Problems N Depression N COPD N Blood Clots N Skin Problems N Anemia N Heart Attack (LA) N Diabetes N Anxiety Disorder N Muscle, Joint, or Bone Problems Y Seizures/Epilepsy N Acid Reflux (GERD) N Cancer N Stroke N Asthma N Allergies N High Cholesterol N Hepatitis N Liver Disease N Headaches Y Osteoporosis N Heart Failure N Immunizations Vaccine Type Date Status Note Provider Nam e and Address Organization Details Recorded Time Tdap 01/12/2016 completed Not Available [facility]/29/2019 02:30:20 Past Encounters Encounter ID Performer Location Encounter Start Date Encounter Closed Date Diagnosis/Indication Diagnosis SNOMED-CT Code Diagnosis ICD10 Code Diagnosis IMO Codes Diagnosis Note [id number] PHAM Dunn [facility] [address] [place] [address] 10/07/2014 15:01:37 10/13/2014 10:30:08 Pain of shoulder region 48622604 [id number] PHAM [facility] [address] [place] [address] 02/26/2015 15:26:08 02/26/2015 16:34:27 Pain of shoulder region 10947300 [id number] PHAM Dunn [facility] [address] [place] [address] 03/03/2015 15:15:35 03/04/2015 14:01:26 Pain of shoulder region 55544957 [id number] MD Dameon Gomez [facility] [address] [place] [address] 05/19/2015 15:33:12 05/19/2015 16:17:05 Bite of nonvenomous arthropod [id number] MD Sierra Damian (Adult Med) [address] [place] [address] 11/30/2015 14:22:06 12/01/2015 13:51:32 General examination of patient 735858912 Z00.01 30 y/o WM who presents to this office as a new patient, he has a history of spinal stenosis, left roator cuff tear and he states that he was in the usual state of health until on or around 11/19/2015 when he developed a headache, nausea, vomiting, fevers, dry heaves and a rash. He was seen in the ER at , he however feels much worse. 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 No one else is ill at home and he denies any joint symptoms or weight loss. I have reviewed the ER report in detail, he has splenomega ly as well as anemia He clearly has an acute febrile illness of unknown etiology, the headache, rash and fever are of concern and I will initiate a work up. However since he is feeling worse, he probably should seek care in the ER at a [facility]. He was given time off work for a week. Addendum 5.00 pm I was called by the admitting department at [facility], patient was advised to go to the ER and I spoke to the triage nurse in the ER. 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 He has been back to work since the and he still has a headache and left sided abdominal pain. He has to intermitte ntly rest for 10 seconds almost every 20 minutes. I do not think he is ready to return to work on even light duty at this time. I am hoping that after I see him in 2 weeks he should be in better shape. His forms will be completed. This was discussed in detail. Labs as previously ordered Discharge summary from [facility] Acute hepatitis 70488502 B17.9 Splenomegaly 29916488 R1 6.1 He was instructed to avoid contact sports and activities that put him at risk of trauma or falls [id number] [facility] [address] [place] [address] 12/28/2015 09:58:13 12/29/2015 15:45:33 Left sided abdominal pain 423566440 R10.9 Most likely related to his splenomega ly, I will repeat the CT scan in view of the severity of the pain. A gentleman who I believe is his father who is here with him today asked about the time course, one would hope that as long as the CT scan does not show anything unexpected , we will try and manage this with Tramadol and reassess his progress in 2 weeks. The instructio ns remain about avoiding contact sports. The need for a pain contract was discussed, UDS needed. Side effects of Tramadol were also discussed. Hyperlipidemia 27714741 E78.5 TG > 1000, abnormal transamina se and TSH Laboratory test result abnormal 669665795 R89.9 [id number] MD Sierra Damian (Adult Med) [address] [place] [address] 01/12/2016 09:58:05 01/12/2016 11:29:01 Hyperlipidemia 02308994 E78.5 TG > 1000, abnormal transamina se and TSH I have dischussed this in detail with Mr. Mckoy and his mother Abdominal pain 85679445 R10.9 Most likely from hs splenomega ly, he feels ready to go back to work on light duty. Splenomegaly 33401034 R1 6.1 He was instructed to avoid contact sports and activities that put him at risk of trauma or falls. The report from the repeat CT scan was discussed in detail, I have answered all the questions that bebo have asked. Active or passive immunization 193208497 Z23 Hematochezia 987309630 K 62.5 Z80.0 Hemoccult negative [id number] [facility] [address] [place] [address] 04/11/2016 11:58:12 04/11/2016 13:00:00 Hyperlipidemia 05519577 E78.5 Severe dyslipidem ia with TG > 1000, abnormal transamina se and TSH. He states that his hematologi st told him to discontinu e the Fenofibrat e as this may explain the elevated LFTs. The elevated LFTS however were present prior to the initiation of his Fenofibrat e. He apparently had labs done 03/23/2016, we will call for those results and repeat the labs that were previously ordered on his last visit especially since he is now off the Fenofibrat e, Overweight 520866170 E66 .3 Thyroid ho rmone tests outside reference range 614203654 R94.6 Splenomegaly 11667701 R1 6.1 Health Concerns Section Related Observation LastModified by Organization Detai ls LastModified Time None Recorded Concern Status LastModified by Organization Details LastModified Time None Recorded Advance Directives Directive None Recorded Payers Insurance Date Sequence Insurance Name Policy Number Policy Abraham Covered Member ID Abraham Member ID Guarantor Name 11/30/[address] Res[address] FACC Fund I [facility] (MEDICAID HMO) Phani Mckoy [id number] Nam Larsenarsenio 07/13/2016 1 [facility] - DOS PRIOR TO 2021 (MEDICAID REPLACEMENT - HMO) Nam Larsenarsenio [id number] Nam Mckoy Notes Date Note Type Note Provider Name and Address Organization Details Recorded Time 6 text/html Abdominal PainReported by PatientAbdominal PainFor quality, patient reportspain. For onset/timing, patient reportsworse. For location, patient reportsluq. For severity, patient reportssevere. For duration, patient reportsintermittent. For associated symptoms, patient reportsno fever,no chills,no blood in the urine,no heartburn, andno shortness of breath. For context, (splenomegaly). Bita Guadalupe MD Attn: Accounting,[address] [place], [address], [facility] 12/28/2015 13:32:52 6 text/html Abdominal PainReported by PatientAbdominal PainFor quality, patient reportspain. For associated symptoms, patient reportsred blood stoolbut reportsno fever,no chills,no blood in the urine,no heartburn, andno shortness of breath. For location, patient reportsluq. For severity, patient reportsmoderate. For duration, patient reportscannot identify. For onset/timing, patient reportsbetter. Bita Guadalupe MD Attn: [employer]ing[address] [place], [address], [facility] 01/12/2016 12:58:43
== END 2025-09-29 18:58 | disposition home or self-care (01) ==
LOC: ANHED 18:18
PROVIDERS: Emergency Provider Registered Nurse; PCP Hospitalist
DX: S81.852A Open bite, left lower leg, initial encounter (principal); W54.0XXA Bitten by dog, initial encounter; Z29.14 Encounter for prophylactic rabies immune globulin; E03.9 Hypothyroidism, unspecified; E78.5 Hyperlipidemia, unspecified; G47.30 Sleep apnea, unspecified; F17.210 Nicotine dependence, cigarettes, uncomplicated
CPT/HCPCS: 93971; 99284; A9270